=== PATIENT | male | born 1940 | race Hispanic/Latino ===

== ENCOUNTER 2016-10-05 18:42 | Inpatient (IN) | payer MEDICARE, BC ==
[2016-10-05] MEDS ORDERED: Morphine 4 mg/ml ISec IVP STA ×2 (19:01→21:02)
[2016-10-05] MEDS ORDERED: Iohexol 240 (50 ml) ONE (19:06)
--- NOTE | 2016-10-05 19:09 | ED PDOC ---
Arrival/HPI - General Chief Complaint: Abdominal Pain Time Seen by Provider: 10/05/16 18:47 Historian: Patient, Family - History of Present Illness Narrative History of Present Illness (Text): 10/05/16 19:13 Ever Parsons, a 76 year old male whose past medical history includes congestive heart failure and stroke (2 years ago), presents to the emergency department complaining of abdominal pain since yesterday. Patient's daughter reports patient had 3 episodes of non bloody non bilious vomiting today. Patient describes pain as gassy and cramping. Patient reports his last bowel movement was 2 hours ago. Patient denies any diarrhea, fever, urination problems or any other complaints at this time. PMD: Dr. Elliott Time/Duration: 24 hours Symptom Onset: Sudden Symptom Course: Unchanged Quality: Cramping, Gas Like Activities at Onset: Rest Context: Home Associated Symptoms (Text): nausea, vomiting Past Medical History - Provider Review Nursing Documentation Reviewed: Yes - Infectious Disease Hx of Infectious Diseases: None - Cardiac Hx Cardiac Disorders: Yes Hx Congestive Heart Failure: Yes Hx Hypertension: Yes - Pulmonary Hx Respiratory Disorders: No - Neurological HX Cerebrovascular Accident: Yes (1.5 yrs ago, L hemiparesis) - HEENT Hx HEENT Disorder: No - Renal Hx Renal Disorder: No - Endocrine/Metabolic Hx Diabetes Mellitus Type 2: Yes - Hematological/Oncological Hx Blood Transfusions: No Hx Blood Transfusion Reaction: No - Integumentary Other/Comment: RIGHT TEMPORAL LESION - Musculoskeletal/Rheumatological Hx Falls: Yes Other/Comment: HX RIGHT HIP FX - Gastrointestinal Hx Gastrointestinal Disorders: No Other/Comment: abd. hernia - Genitourinary/Gynecological Hx Genitourinary Disorders: No - Psychiatric Hx Anxiety: Yes Hx Depression: Yes Hx Substance Use: No - Surgical History Hx Coronary Stent: Yes Other/Comment: RIGHT HIP FX - Anesthesia Hx Anesthesia Reactions: No Hx Malignant Hyperthermia: No - Suicidal Assessment Feels Threatened In Home Enviroment: No Family/Social History - Physician Review Nursing Documentation Reviewed: Yes Family/Social History: No Known Family HX Smoking Status: Never Smoked Hx Alcohol Use: No Hx Substance Use: No Allergies/Home Meds Allergies/Adverse Reactions: Allergies Penicillins Allergy (Verified 07/30/16 16:46) URTICARIA Sulfa (Sulfonamide Antibiotics) Allergy (Verified 07/30/16 16:46) URTICARIA Home Medications: Home Meds Medication Instructions Recorded Confirmed Aspirin [Aspirin Chewable] 81 mg PO DAILY 10/05/16 10/05/16 Clopidogrel [Plavix] 75 mg PO DAILY 10/05/16 10/05/16 Methylphenidate [Methylphenidate 5 mg PO BID 10/05/16 10/05/16 HCl] Sennosides A and B [Senokot Tab] 17.2 mg PO PRN PRN 10/05/16 10/05/16 Review of Systems - Physician Review All systems were reviewed & negative as marked: Yes - Review of Systems Constitutional: absent: Fevers Gastrointestinal: Abdominal Pain, Nausea, Vomiting. absent: Diarrhea Genitourinary Male: absent: Dysuria, Frequency, Hematuria, Urinary Output Changes Physical Exam Vital Signs Reviewed: Yes Vital Signs Temp Pulse Resp BP Pulse Ox 10/05/16 22:10 98 F 94 H 16 118/74 95 10/05/16 18:50 98.3 F 93 H 24 142/90 98 Temperature: Afebrile Blood Pressure: Normal Pulse: Regular Respiratory Rate: Normal Appearance: Positive for: Well-Appearing, Non-Toxic, Comfortable Pain Distress: None Mental Status: Positive for: Alert and Oriented X 3 - Systems Exam Head: Present: Atraumatic, Normocephalic Pupils: Present: PERRL Extroacular Muscles: Present: EOMI Conjunctiva: Present: Normal Mouth: Present: Moist Mucous Membranes Neck: Present: Normal Range of Motion Respiratory/Chest: Present: Clear to Auscultation, Good Air Exchange. No: Respiratory Distress, Accessory Muscle Use Cardiovascular: Present: Regular Rate and Rhythm, Normal S1, S2. No: Murmurs Abdomen: Present: Tenderness (left sided tenderness with palpation), Normal Bowel Sounds, Guarding, Hernias (rediculable ventral hernia ). No: Distention, Peritoneal Signs, Rebound Upper Extremity: Present: Normal Inspection. No: Cyanosis, Edema Lower Extremity: Present: Normal Inspection. No: Edema Neurological: Present: GCS=15, CN II-XII Intact, Speech Normal Skin: Present: Warm, Dry, Normal Color. No: Rashes Psychiatric: Present: Alert, Oriented x 3, Normal Insight, Normal Concentration Medical Decision Making ED Course and Treatment: 10/05/16 19:10 Impression: 76 year old male with abdominal pain associated with nausea and vomiting. Differential Diagnosis included but are not limited to: pancreatitis vs diverticulitis vs. obstruction vs. gastritis Plan: -- EKG -- Abdomen/Pelvis CT -- Labs -- Morphine, Pepcid and Zofran -- Reassess and disposition Prior Visits: Notes and results from previous visits were reviewed. The patient last presented to the emergency department on 07/30/16 for evaluation of left knee pain. - RAD Interpretation Radiology Orders: 10/05/16 19:01 ABD PELVIS PO & IV CONTRAST [CT] Stat [facility] Preliminary Radiology Report Call: [phone] assistance Online chat: [email or web address] Patient Name: EVER PARSONS Institution Name: [place] [address] ABDOMEN/PELVIS W Ordered As: CT ABD PELVIS PO IV CONTRAST EXAM: CT Abdomen and Pelvis With Intravenous Contrast IMPRESSION: 1. Large bilateral pleural effusions. Atelectasis in the bases. 2. Cholelithiasis. 3. There are several abdominal wall hernias identified including 2 superiorly and a lower left ventral hernia which is the largest. Large volume of free fluid in the abdomen and pelvis extends into the lower most hernia with less fluid in the upper hernias. Small bowel and stomach are dilated. The small bowel dilatation does extend into the lower left hernia which appears to be wide mouthed measuring 7 cm in transverse diameter. Suspect that the findings are due to small bowel obstruction likely due to a adhesion either at the ostomy site or within the hernia. The small bowel which traverses from the hernia sac back into the abdominal wall appears to be of normal caliber images 128 through 152. There are dilated loops of small bowel more superior ventral hernias without incarceration. Given the complexity of multiple hernias and the obstruction, delayed imaging with already administered oral contrast may be helpful as clinically needed. Alternatively serial abdominal radiographs could be performed. - Medication Orders Current Medication Orders: Metronidazole (Flagyl) 100 mls @ 100 mls/hr IVPB STAT STA PRN Reason: Protocol Stop: 10/05/16 23:23 Discontinued Medications Famotidine (Pepcid) 20 mg IVP STAT STA Stop: 10/05/16 19:02 Last Admin: 10/05/16 19:16 Dose: 20 MG IVP Administration Document 10/05/16 19:16 [facility] (Rec: 10/05/16 19:[id number]) Charges for Administration # of IVP Administrations 1 Iohexol (Omnipaque 240 (50 Ml)) Confirm Administered Dose 50 ml .ROUTE .STK-MED ONE Stop: 10/05/16 19:07 Last Admin: 10/05/16 19:26 Dose: 50 ML Comments: per ordnance engineering technician Iohexol (Omnipaque 350 100 Ml) Confirm Administered Dose 350 mg .ROUTE .STK-MED ONE Stop: 10/05/16 21:06 Morphine Sulfate (Morphine) 4 mg IVP STAT STA Stop: 10/05/16 19:02 Last Admin: 10/05/16 19:16 Dose: 4 MG MAR Pain Assessment Document 10/05/16 19:16 [facility] (Rec: 10/05/16 19:[id number]) Pain Reassessment Is this a pain reassessment? No Sleep Is patient sleeping during reassessment? No Presence of Pain Presence of Pain Yes Pain Scale Used Pain Scale Used Numeric Location Pain Location Body Site Abdomen Description Description Constant Intensity of Pain at present 8 Acceptable Level of Pain 0 Radiation Location abdomen IVP Administration Document 10/05/16 19:16 [facility] (Rec: 10/05/16 19:16 [place] [id number]) Charges for Administration # of IVP Administrations 1 Morphine Sulfate (Morphine) 4 mg IVP STAT STA Stop: 10/05/16 21:03 Last Admin: 10/05/16 21:08 Dose: 4 MG MAR Pain Assessment Document 10/05/16 21:08 [facility] (Rec: 10/05/16 21:[id number]) Pain Reassessment Is this a pain reassessment? Yes Sleep Is patient sleeping during reassessment? No Presence of Pain Presence of Pain Yes Pain Scale Used Pain Scale Used Numeric Location Pain Location Body Site Abdomen Description Description Constant Intensity of Pain at present 7 Acceptable Level of Pain 0 IVP Administration Document 10/05/16 21:08 [facility] (Rec: 10/05/16 21:09 [place] [id number]) Charges for Administration # of IVP Administrations 1 Ondansetron HCl (Zofran Inj) Confirm Administered Dose 4 mg .ROUTE .STK-MED ONE Stop: 10/05/16 19:15 Last Admin: 10/05/16 19:20 Dose: 4 MG Ondansetron HCl (Zofran Inj) 4 mg IVP STAT STA Stop: 10/05/16 19:20 Last Admin: 10/05/16 19:21 Dose: ED OBSERVATION Date of observation admission: 10/05/16 Time of observation admission: 18:55 - Observation admission statement Patient is being placed in observation because:: abdominal pain with nausea and vomiting - Goals of Observation Goals of observation are:: pain control and obtain series of abdominal examination - Progress Note Progress Note: 10/05/16 22:38 Patient's pain is controlled. No vomiting during ED stay. Discussed case with Dr. Chery who had done his previous surgery as per patient. He agrees to admission and to discuss case with Supervising Film Or Videotape Editor. Discussed case with Dr. Lizzy Romano, surgical aide who will evaluate patient. Patient allergic to pencillion. Treated with Flagyl IV and Cipro IV. - Scribe Statement The provider has reviewed the documentation as recorded by the Albina Lovett training under Tom Driscoll All medical record entries made by the Albina were at my direction and personally dictated by me. I have reviewed the chart and agree that the record accurately reflects my personal performance of the history, physical exam, medical decision making, and the department course for this patient. I have also personally directed, reviewed, and agree with the discharge instructions and disposition. Disposition/Present on Arrival - Present on Arrival Any Indicators Present on Arrival: No History of DVT/PE: No History of Uncontrolled Diabetes: No Urinary Catheter: No History of Decub. Ulcer: No History Surgical Site Infection Following: None - Disposition Have Diagnosis and Disposition been Completed?: Yes Diagnosis: Small bowel obstruction Disposition: HOSPITALIZED Disposition Time: 22:43 Patient Plan: Admission Patient Problems: Current Active Problems Problem Status Diagnosed Left knee pain Acute PVD (peripheral vascular disease) Acute Condition: GUARDED
[2016-10-05 19:14] LABS: ADD MANUAL DIFF? NO
[2016-10-05 19:26] LABS: BASO # 0.03 K/mm3 (0.0-2.0); BASO % 0.2 % (0.0-3.0); EOS # 0.1 (0.0-0.7); EOS % 0.9 % (1.5-5.0); GRAN # 11.27 (1.4-6.5); HEMATOCRIT 36.6 % (42.0-52.0); LYMPH % 7.4 % (22.0-35.0); MEAN CELL VOLUME 78.7 fL (80.0-105.0); MEAN CORPUSCULAR HEMOGLOBIN 25.6 pg (25.0-35.0); MEAN CORPUSCULAR HGB CONC 32.5 g/dl (31.0-37.0); MEAN PLATELET VOLUME 8.6 fl (7.0-11.0); MONO # 0.9 (0.1-0.6); MONO % 6.5 % (1.0-6.0); PLATELET COUNT 371 10^3/uL (120.0-450.0); RED CELL DISTRIBUTION WIDTH 18.3 % (11.5-14.5); WHITE BLOOD COUNT 13.3 10^3/ul (4.5-11.0)
[2016-10-05 19:30] LABS: ALB/GLOB RATIO 0.9 (1.1-1.8); ALKALINE PHOSPHATASE 148 U/L (38-133); ALT/SGPT 31 U/L (7-56); AST/SGOT 46 U/L (15-59); BILIRUBIN,TOTAL 1.7 mg/dL (0.2-1.3); BLOOD UREA NITROGEN 32 mg/dL (7-21); CALCIUM 9.2 mg/dL (8.4-10.5); CARBON DIOXIDE 21 mmol/L (21-33); CHLORIDE 102 mmol/L (98-107); GFR AFRICAN-AMERICAN > 60; GLUCOSE,RANDOM 110 mg/dL (70-110); LIPASE 66 U/L (23-300); SODIUM 135 mmol/L (132-148); TOTAL PROTEIN 7.5 g/dL (5.8-8.3)
[2016-10-05 19:34] LABS: INR 1.24 (0.93-1.08); PARTIAL THROMBOPLASTIN TIME 30.5 Seconds (23.7-30.8)
[2016-10-05] MEDS ORDERED: Iohexol 350 MG/100 ML VIAL ONE (21:05)
[2016-10-05 22:08] LABS: VENOUS BLOOD GAS BASE EXCESS -2.8 mmol/L (0.0-2.0); VENOUS BLOOD PH 7.38 (7.32-7.43)
[2016-10-05] MEDS ORDERED: metroNIDAZOLE IV 500 mg/100 ml 100 ML IVPB STA (22:24)
[2016-10-05] MEDS ORDERED: Ciprofloxacin 400mg/200ml D5W 200 ML IVPB STA (22:43)
--- NOTE | 2016-10-05 23:18 | CP.PCM.CON ---
<Lizzy Romano - Last Filed: 10/05/16 23:01> History of Present Illness - History of Present Illness History of Present Illness: Surgery Consult: Dr. Tillman Pt is a 76M with PMHx significant for HTN, DM, CAD s/p PTCA, CVA and duodenal ulcer perforation in 2007 s/p laparotomy who presented to [facility] with complaints of abdominal pain. Pt states pain started last night after dinner and describes it as diffuse "gas pain." Pain was also accompanied by few episodes of non- bilious, non-bloody vomiting. This morning pt had a loose BM and was hoping the pain would get better, however pain got worse. He tried drinking pepto bismol which made the pain worse so he finally came to the hospital. In the ER, pt had a CT abdomen/pelvis which shows several abdominal wall hernias with bowel loops, suspicious for small bowel obstruction. Surgery consulted to evaluate. Currently, pt is resting comfortably in bed and states he feels a lot better and abdominal pain has resolved. He denies any more episodes of nausea/ vomiting. Denies flatus or BM since being in the hospital. Denies F/C, chest pain or SOB. PMHx: as stated above PSHx: laparotomy for duodenal perforation, PTCA SocialHx: denies smoking, EtOH/drugs NKDA Review of Systems - Review of Systems All systems: reviewed and no additional remarkable complaints except (as per HPI ) Past Patient History - Infectious Disease Hx of Infectious Diseases: None - Past Social History Smoking Status: Never Smoked - CARDIAC Hx Cardiac Disorders: Yes Hx Congestive Heart Failure: Yes Hx Hypertension: Yes - PULMONARY Hx Respiratory Disorders: No - NEUROLOGICAL HX Cerebrovascular Accident: Yes (1.5 yrs ago, L hemiparesis) - HEENT Hx HEENT Problems: No - RENAL Hx Chronic Kidney Disease: No - ENDOCRINE/METABOLIC Hx Diabetes Mellitus Type 2: Yes - MUSCULOSKELETAL/RHEUMATOLOGICAL Hx Falls: Yes Other/Comment: HX RIGHT HIP FX - GASTROINTESTINAL Hx Gastrointestinal Disorders: No Other/Comment: abd. hernia - GENITOURINARY/GYNECOLOGICAL Hx Genitourinary Disorders: No - PSYCHIATRIC Hx Anxiety: Yes Hx Depression: Yes Hx Substance Use: No - SURGICAL HISTORY Hx Coronary Stent: Yes Other/Comment: RIGHT HIP FX - ANESTHESIA Hx Anesthesia: Yes Hx Anesthesia Reactions: No Hx Malignant Hyperthermia: No Meds Allergies/Adverse Reactions: Allergies Allergy/AdvReac Type Severity Reaction Status Date / Time Penicillins Allergy URTICARIA Verified 07/30/16 16:46 Sulfa (Sulfonamide Allergy URTICARIA Verified 07/30/16 16:46 Antibiotics) - Medications Medications: Current Medications Metronidazole (Flagyl) 100 mls @ 100 mls/hr IVPB STAT STA PRN Reason: Protocol Stop: 10/05/16 23:23 Ciprofloxacin (Cipro 400mg/200ml Dsw) 200 mls @ 133.3 mls/hr IVPB STAT STA PRN Reason: Protocol Stop: 10/06/16 00:13 Physical Exam - Constitutional Appears: Well, No Acute Distress - Head Exam Head Exam: ATRAUMATIC, NORMOCEPHALIC - Eye Exam Eye Exam: Normal appearance - ENT Exam ENT Exam: Mucous Membranes Moist - Respiratory Exam Respiratory Exam: NORMAL BREATHING PATTERN - Cardiovascular Exam Cardiovascular Exam: RRR - GI/Abdominal Exam GI & Abdominal Exam: Soft. absent: Distended, Guarding, Rebound, Tenderness Additional comments: multiple ventral hernia, reducible - Extremities Exam Extremities exam: Negative for: tenderness - Neurological Exam Neurological exam: Alert, Oriented x3 - Skin Skin Exam: Dry, Intact, Warm Results - Vital Signs Recent Vital Signs: Last Vital Signs Temp 98 F 10/05/16 22:10 Pulse 94 H 10/05/16 22:10 Resp 16 10/05/16 22:10 BP 118/74 10/05/16 22:10 Pulse Ox 95 10/05/16 22:10 - Labs Result Diagrams: 10/05/16 19:09 10/05/16 19:09 - Imaging and Cardiology CT scan - abdomen Status: Image reviewed by me, Report reviewed by me Assessment & Plan - Assessment and Plan (Free Text) Assessment: 76M with abdominal pain, r/o SBO Plan: - Keep NPO - serial abdominal exams - if pt starts throwing up or abdominal pain returns, will insert NGT - monitor bowel function - d/w Dr. Vik Romano, PGY-2 Surgery <Salvatore Chery - Last Filed: 10/07/16 08:06> Meds - Medications Medications: Current Medications Acetylcysteine (Acetylcysteine 20%) 4 ml IH BIDRESP GILLIAN Last Admin: 10/06/16 21:53 Dose: 4 ml Arformoterol Tartrate (Brovana) 15 mcg IH [id number] [facility] Last Admin: 10/06/16 21:53 Dose: 15 mcg Aspirin (Aspirin Chewable) 81 mg PO DAILY [facility] Budesonide (Pulmicort Respules) 0.5 mg IH [id number] [facility] Last Admin: 10/06/16 21:53 Dose: 0.5 mg Escitalopram Oxalate (Lexapro) 10 mg PO DAILY [facility] Furosemide (Lasix) 40 mg PO DAILY [facility] Potassium Chloride 40 meq/ (Dextrose/Sodium Chloride) 1,020 mls @ 50 mls/hr IV .[id number] [facility] Lisinopril (Zestril) 5 mg PO DAILY [facility] Methylphenidate HCl (Ritalin) 5 mg PO BID [facility] Last Admin: 10/06/16 22:49 Dose: 5 mg Metoprolol Tartrate (Lopressor) 50 mg PO DAILY [facility] Morphine Sulfate (Morphine) 2 mg IVP Q4H PRN PRN Reason: Pain, moderate (4-7) Last Admin: 10/06/16 11:58 Dose: 2 mg Ondansetron HCl (Zofran Inj) 4 mg IVP Q4H PRN PRN Reason: Nausea/Vomiting Last Admin: 10/06/16 12:00 Dose: 4 mg Results - Vital Signs Recent Vital Signs: Last Vital Signs Temp 97.9 F 10/07/16 07:29 Pulse 75 10/07/16 07:29 Resp 20 10/07/16 07:29 BP 122/73 10/07/16 07:29 Pulse Ox 96 10/07/16 07:29 - Labs Result Diagrams: 10/07/16 05:30 10/07/16 05:30 Labs: Laboratory Results - last 24 hr 10/07/16 05:30 WBC 10.0 RBC 3.83 Hgb 9.7 L Hct 30.8 L MCV 80.4 MCH 25.3 MCHC 31.5 RDW 18.5 H Plt Count 347 MPV 8.2 Sodium 135 Potassium 4.5 Chloride 106 Carbon Dioxide 22 Anion Gap 12 BUN 24 H Creatinine 1.2 Est GFR ( Amer) > 60 Est GFR (Non-Af Amer) 59 Random Glucose 104 Calcium 8.5 Total Bilirubin 1.3 AST 38 ALT 34 Alkaline Phosphatase 98 Total Protein 6.2 Albumin 2.9 L Globulin 3.3 Albumin/Globulin Ratio 0.9 L Assessment & Plan - Assessment and Plan (Free Text) Assessment: Patient was seen and examined by me. I agree with assessment and plan as per resident's note. - Date & Time Date: 10/06/16 Time: 10:10
[2016-10-05] MEDS ORDERED: Dextrose 5%/0.45% NS 1,000 ML IV SCH (23:30)
[2016-10-06 02:08] LABS: VENOUS BLOOD GAS BASE EXCESS -2.8 mmol/L (0.0-2.0); VENOUS BLOOD PH 7.38 (7.32-7.43)
[2016-10-06 06:54] LABS: MEAN CORPUSCULAR HEMOGLOBIN 25.5 pg (25.0-35.0); MEAN CORPUSCULAR HGB CONC 31.9 g/dl (31.0-37.0); MEAN PLATELET VOLUME 8.4 fl (7.0-11.0); RED CELL DISTRIBUTION WIDTH 18.3 % (11.5-14.5); WHITE BLOOD COUNT 10.1 10^3/ul (4.5-11.0)
[2016-10-06 07:12] LABS: ALB/GLOB RATIO 0.8 (1.1-1.8); ALKALINE PHOSPHATASE 109 U/L (38-133); ALT/SGPT 31 U/L (7-56); AST/SGOT 43 U/L (15-59); BILIRUBIN,TOTAL 1.2 mg/dL (0.2-1.3); BLOOD UREA NITROGEN 29 mg/dL (7-21); CALCIUM 8.4 mg/dL (8.4-10.5); CARBON DIOXIDE 22 mmol/L (21-33); CHLORIDE 103 mmol/L (98-107); GFR AFRICAN-AMERICAN > 60; GLUCOSE,RANDOM 92 mg/dL (70-110); POTASSIUM 3.8 mmol/L (3.6-5.0); SODIUM 132 mmol/L (132-148); TOTAL PROTEIN 5.9 g/dL (5.8-8.3)
[2016-10-06] MEDS: Potassium Chloride 40 MEQ in Dextrose 5%/0.45% NS 1,000 ML IV SCH ×2 (07:54→17:57)
--- NOTE | 2016-10-06 09:09 | HP ---
CHIEF COMPLAINT AND HISTORY OF PRESENT ILLNESS: This is a 76-year-old male who is coming in to the [facility] because of abdominal pain. Yesterday morning, I received a call from the patient's jose woody that the patient was having abdominal discomfort and having a lot of gas. She said that she was n ot sure what to do. I advised her to take him Pepto-Bismol and Gas-X, and if he did not have improve ment of his symptoms, to come in to the Emergency Room for further evaluation. I received a second c all saying that he was continuing to have abdominal pain. I advised her to come to the Emergency [facility] to get evaluated. The patient does have a history of stroke, CHF, coronary artery disease. He was discharged from the hospital about 2 months ago, and had spent some time at subacute rehab at [facility]. He has a history of pulmonary hypertension, diabetes type 2, depression, COPD. He says he was having this abdominal pain - it was 4-5/10. Nothing was making the pain better. It was progressivel y getting worse, so he came in for further management. A CAT scan done showed that he had an obstruction. He denies any chest pain or shortness of breath, no nausea, no vomiting, no dysuria or frequency, no nocturia, no weakness in the arms or the legs. The pain was intermittent. There is also vomiting. It was nonbloody. He was having loose bowel movements. He does have a history of an abdominal herni a. REVIEW OF SYSTEMS: All other review of symptoms is within normal limits except as mentioned. ALLERGIES: PENICILLIN AND SULFA. HOME MEDICATIONS: Aspirin, Plavix, Ritalin, Senokot. PAST MEDICAL HISTORY: 1. Gastritis. 2. Left knee effusion. 3. COPD. 4. Diabetes type 2. 5. Bilateral pleural effusion. 6. Coronary artery disease. 7. Dyslipidemia. 8. Pulmonary hypertension. 9. Osteoarthritis. 10. Gait dysfunction. 11. CVA. PAST SURGICAL HISTORY: Laparotomy for duodenal perforation, PTCA, right hip surgery. SOCIAL HISTORY: He denies smoking or drinking alcohol. He lives with his . He is retired. FAMILY HISTORY: Noncontributory. PHYSICAL EXAMINATION: VITAL SIGNS: Temperature is 98.7, pulse of 81. Blood pressure is 91/59, respirations 20. GENERAL: The patient is lying in bed, flat, and in no apparent distress. HEAD AND NECK EXAM: Atraumatic, normocephalic. Conjunctivae are pink. Throat clear and mouth with moist mucosa. Oropharynx benign. EYES: Extraocular movements are intact. PERRLA. NECK: Supple. No JVD, thyromegaly, or adenopathy. No bruits. HEART: S1 and S2 regular rate and rhythm. No murmurs, rubs, or gallops. LUNGS: Clear to auscultation bilaterally. No wheezing rales or rhonchi appreciated. No retraction s on exam. ABDOMEN: Bowel sounds are positive, soft. There is tenderness on deep palpation. No rebound, no gu arding. No hepatosplenomegaly. EXTREMITIES: No cyanosis, clubbing, or edema. NEURO: No facial asymmetry, tongue is midline, no uvula deviation. Power is 5/5 in upper extremity and 5/5 in lower extremity. Sensation is normal in upper extremity and lower extremity. PSYCH: Awake, alert, oriented x3. No anxiety or depression symptoms. Good insight. Normal affec t. : No CVA tenderness VASCULAR: 2+ pulses in carotid and pedal pulses. SKIN: No erythema or abnormal nodules noted. SPINE: Normal curvature. LYMPHADENOPATHY: No anterior cervical or posterior cervical adenopathy. No inguinal adenopathy. LABORATORY DATA: White count 13.3, hemoglobin 11.9. Platelet count is 371. Granulocytes 85%. INR is 1.2. ABG done shows a pH of 7.38 with a pCO2 of 37, PaO2 of 102. Lactate is 2. Chemistry shows a sodium of 135. Potassium is 4.0. BUN is 32. He has a total bili of 1.7. Alk phos is 148. Lipas e is 66. CT of the abdomen done shows a large bilateral pleural effusion with cholelithiasis, and there is a h ernia that is identified, left ventral hernia. There is a large volume of free fluid in the abdomen. The small bowel and stomach are dilated. ASSESSMENT: 1. Small-bowel obstruction. 2. Ventral hernia. 3. Bilateral pleural effusion, large. 4. Ascites. 5. Cholelithiasis. 6. Coronary artery disease. 7. Diabetes type 2. 8. Pulmonary hypertension. 9. Dyslipidemia. 10. Osteoarthritis. 11. Depression. 12. History of rectal bleeding. 13. Chronic obstructive pulmonary disease. PLAN: The patient is coming in to the hospital with abdominal pain. He has CT scan that shows a sig nificant amount of obstruction with bilateral pleural effusion. He is going to need surgical evaluat ion. I have asked Dr. Chery to evaluate the patient. He also has cardiac issues and pulmonary issues. I will get pulmonary and cardiology to see the patient. He may need surgery. He is at hig h risk given his underlying comorbidities. He is going to be placed on morphine for pain. He is on Zofran for nausea. He is n.p.o. He is receiving D5 half normal saline. I will add potassium to the saline. Overall prognosis is guarded. We will repeat the patient's blood work. Amol David MD cc: [id number] TT: 10/06/2016 09:08:44 jn
--- NOTE | 2016-10-06 09:46 | CT ---
PROCEDURE: CT Abdomen and Pelvis with contrast HISTORY: abd pain r/o obstruction; r/o diverticulitis COMPARISON: None. TECHNIQUE: Contrast dose: 100 cc of Omni 350 Radiation dose: Total exam DLP = 1144 mGy-cm. This CT exam was performed using one or more of the following dose reduction techniques: Automated exposure control, adjustment of the mA and/or kV according to patient size, and/or use of iterative reconstruction technique. FINDINGS: LOWER THORAX: Small bilateral pleural effusions left greater than right LIVER: Unremarkable. No gross lesion or ductal dilatation. GALLBLADDER AND BILE DUCTS: Small gallstones PANCREAS: Unremarkable. No gross lesion or ductal dilatation. SPLEEN: Unremarkable. ADRENALS: Unremarkable. No mass. KIDNEYS AND URETERS: There is severe atrophy of the left kidney. The right kidney is unremarkable VASCULATURE: Unremarkable. No aortic aneurysm. BOWEL: Multiple ventral hernias are seen with the largest in the left lower quadrant. The left lower quadrant hernia has a wide mouth measuring 7 cm as seen on coronal image 46. Multiple dilated bowel loops are seen consistent with partial obstruction. APPENDIX: Normal appendix. PERITONEUM: There is a moderate amount of ascites. Fluid also extends into left lower quadrant hernia. LYMPH NODES: Unremarkable. No enlarged lymph nodes. BLADDER: Unremarkable. REPRODUCTIVE: Unremarkable. BONES: No acute fracture. OTHER FINDINGS: The report concurs with the preliminary [facility] report IMPRESSION: Multiple ventral hernias with partial small bowel obstruction
[2016-10-06] MEDS: Morphine 2 mg/ml ISec IVP PRN (11:58)
--- NOTE | 2016-10-06 13:24 | CON ---
DATE: 10/06/2016 REFERRING PHYSICIAN: Amol David MD REASON FOR CONSULT: Pleural effusion, scheduled for possible surgery, admitted with small-bowel obst ruction. HISTORY OF PRESENT ILLNESS: This is a 76-year-old gentleman who came into ER with abdominal pain, qu estionable small-bowel obstruction with a ventral hernia, history of pleural effusion, chronic lung d isease, congestive heart failure, diabetes since last night. He feels a little better, but still has abdominal pain, has a mild cough with clear sputum. No chest pain, no dysuria, no leg pain or leg s welling. PAST MEDICAL HISTORY: Cardiomyopathy, pulmonary hypertension, diabetes, pleural effusion, anxiety di sorder, coronary artery disease with coronary stent. ALLERGIES: PENICILLIN; SULFA, DEVELOPED URTICARIA. FAMILY HISTORY: No significant cardiopulmonary disease reported. MEDICATIONS: He is on morphine 2 mg IV q. 4 hours p.r.n., potassium 40 mEq with IV fluids, Zofran p. r.n. basis. He received Flagyl 500 mg 1 dose in the ER, also received Cipro 400 mg 1 dose. His home medications are metoprolol tartrate 50 mg daily, lisinopril 5 mg daily, Lasix 40 mg daily, Lexapro 1 0 mg daily, Plavix 75 mg daily, aspirin 81 mg daily. REVIEW OF SYSTEMS: No headache, no rhinitis. Does have some cough. Gets short of breath with exert ion. No chest pain, no nausea, had abdominal pain which is improved since admission. No dysuria, no diarrhea, no leg pain or leg swelling. PHYSICAL EXAMINATION: GENERAL: Lying in the bed in no acute distress. VITAL SIGNS: Temp is 98, heart rate 76, respiratory rate is 20, blood pressure 108/55, pulse ox 97% on room air. HEENT: Moist mucous membrane. Crowded airway. NECK: Supple, no JVD. LUNGS: Have a decreased breath sounds at the bases with scattered rhonchi. HEART: S1 and S2. ABDOMEN: Has multiple, at least 3-4, ventral hernias; right lower quadrant has some tenderness. EXTREMITIES: There is not much edema. NEUROLOGIC: Awake, alert, follows simple commands. LABORATORY DATA: Shows hemoglobin 10.2, hematocrit 32.0, WBC 10.1, platelet count is 351. INR 1.24, PTT is 31. Blood gases done today shows VBG pH 7.38, pCO2 of 37, O2 of 96 on room air. Sodium 132, potassium 3.8, chloride 103, bicarbonate 22, BUN 29, creatinine 1.1, glucose is 92, calcium is 8.4, AST 43, ALT 31, alk phos is 109, albumin is 2.7. MICROBIOLOGY: Stool for C. diff which was in July was negative. CAT scan of the abdomen and pel vis done in the ER yesterday, which shows multiple ventral hernias with a partial small-bowel obstruc tion. There are also small bilateral pleural effusions, left greater than the right. There are also a moderate amount of ascites. IMPRESSION AND PLAN: Small-bowel obstruction with multiple ventral hernias, cardiomyopathy with syst olic dysfunction, coronary artery disease, history of coronary stent, bilateral small pleural effusio n, diabetes, hypertension, degenerative joint disease, gastritis. There may be component of sleep ap nathalie. Pulmonary point of view, his status is optimized. He has been on Plavix, which needs to be hel d. I will add inhaled bronchodilator. Gastric prophylaxis. SCD to lower extremity. Cardiology fol lowup. Surgical consult has been called. If undergoes surgical treatment, needs close cardiopulmona ry monitoring. I will follow with you. Onofre Lieberman MD cc: [id number] TT: 10/06/2016 13:24:22 Confirmation # [id number] Dictation # [id number]
--- NOTE | 2016-10-06 14:13 | CON ---
DATE: 10/06/2016 REQUESTING PHYSICIAN: Dr. David REASON FOR CONSULTATION: Known coronary artery disease and congestive heart failure with a small bow el obstruction. HISTORY OF PRESENT ILLNESS: This is a 76-year-old man, well known to us with a history of coronary a rtery disease, status post prior PCI, who presented to the Emergency Room complaining of severe abdom inal pain. His findings were consistent with a small bowel obstruction and surgical evaluation has b een initiated. He continues to have abdominal discomfort; however, it is not quite as severe as it w as yesterday. He denies any recent chest pain. He underwent cardiac catheterization and PCI of his LAD in 2014. This was complicated by a cerebrovascular accident. Prior echocardiogram showed eviden ce of severely reduced LV systolic function with anterior apical akinesis as well as inferior hypokin esis. He has a history of severe tricuspid regurgitation. He has undergone prior abdominal surgery for perforated ulcer over 10 years ago. He has incisional hernias as well. PAST MEDICAL HISTORY: Notable for the problems mentioned above. He has undergone a prior right tota l hip replacement. He has a history of diabetes, hypertension and hyperlipidemia. CURRENT MEDICATIONS: Include aspirin, Brovana, Lasix 40 mg daily, Lexapro, metoprolol 50 mg daily, P ulmicort inhaler, Ritalin and Zestril 5 mg daily. ALLERGIES: HE HAS HAD A REACTION TO PENICILLIN AND SULFAS IN THE PAST. SOCIAL HISTORY: He does not smoke or drink. He is , lives with his . FAMILY HISTORY: Both parents are from age-related illness. REVIEW OF SYSTEMS: A 10-point is notable mainly for the problems mentioned above. PHYSICAL EXAMINATION: GENERAL: He is an elderly man who appears comfortable at the present time. He does have mild abdomi nal pain. VITAL SIGNS: His blood pressure is 108/56 with a pulse of 76 and respirations are 16. He is current ly afebrile. HEENT: No JVD. Pupils equal, react to light and accommodation. NECK: Supple. CHEST: Bilateral scattered rhonchi. HEART: PMI displaced laterally with soft tones noted. A systolic murmur is present at the lower lef t sternal border. ABDOMEN: Reveals the abdomen to be distended, hyperactive bowel sounds are noted. Mild to moderate diffuse tenderness is present. EXTREMITIES: No clubbing, cyanosis or edema. SKIN: Warm and dry. PSYCHIATRIC: Normal mood and affect. NEUROLOGIC: Alert and oriented x 3. He does have mild left-sided hemiparesis. DIAGNOSTIC DATA: CT of the abdomen reveals multiple ventral hernias with a partial small bowel obstr uction, bilateral pleural effusions are noted. Chest x-ray will be reviewed. Electrocardiogram reve als sinus rhythm with first degree AV block, LVH with repolarization abnormalities, prior inferior wa ll myocardial infarction pattern and lateral wall infarct pattern. The white count is at 10.1, hemog lobin and hematocrit are 10.2 and 32.0 with a platelet count of 351,000. PT/INR 13.4 and 1.2 with a PTT of 30.5. Potassium 3.8, BUN and creatinine 29 and 1.1. Bilirubin 1.2. IMPRESSION: 1. Apparent small bowel obstruction, surgical evaluation in progress. 2. Known coronary artery disease, status post remote percutaneous coronary intervention of left ante rior descending with residual severe left ventricular dysfunction. 3. Mitral and tricuspid regurgitation. 4. History of diabetes and hyperlipidemia. RECOMMENDATIONS: His current oral medications should continue if tolerated. Beta beulah therapy sh ould continue. Plavix is currently on hold. Aspirin can be placed on hold as well if needed. If pantoja rgical intervention is needed, he is at least a moderately increased risk given his left ventricular dysfunction and known coronary artery disease. A repeat echocardiogram will be ordered to reassess h is left ventricular function at the present time. Thank you for this consultation. I will be happy to follow along through his hospital course. Mike Herrera MD cc: [id number] TT: 10/06/2016 14:12:58 Confirmation # [id number] Dictation # [id number] en
--- NOTE | 2016-10-06 15:13 | CP.PCM.PN ---
<ChevyDelmar - Last Filed: 10/06/16 15:10> Subjective - Date & Time of Evaluation Date of Evaluation: 10/06/16 Time of Evaluation: 07:50 - Subjective Subjective: Surgery Progress note. Dr. Chery Pt seen and examined at bedside. Patient states that the abdominal pain has improved. Denies any N/V/D. No F/C. No new complaints. Ventral hernia reducible. Objective - Vital Signs/Intake and Output Vital Signs (last 24 hours): Temp Pulse Resp BP Pulse Ox 98.1 F 76 20 108/55 L 97 10/06/16 07:24 10/06/16 07:24 10/06/16 07:24 10/06/16 07:24 10/06/16 07:24 Intake and Output: 10/06/16 10/06/16 06:59 18:59 Intake Total 0 Balance 0 - Medications Medications: Current Medications Acetylcysteine (Acetylcysteine 20%) 4 ml IH BIDRESP [facility] Arformoterol Tartrate (Brovana) 15 mcg IH [id number] [facility] Aspirin (Aspirin Chewable) 81 mg PO DAILY [facility] Budesonide (Pulmicort Respules) 0.5 mg IH [id number] [facility] Escitalopram Oxalate (Lexapro) 10 mg PO DAILY [facility] Furosemide (Lasix) 40 mg PO DAILY [facility] Potassium Chloride 40 meq/ (Dextrose/Sodium Chloride) 1,020 mls @ 100 mls/hr IV .[id number] [facility] Last Admin: 10/06/16 07:54 Dose: 100 mls/hr Lisinopril (Zestril) 5 mg PO DAILY [facility] Methylphenidate HCl (Ritalin) 5 mg PO BID [facility] Metoprolol Tartrate (Lopressor) 50 mg PO DAILY [facility] Morphine Sulfate (Morphine) 2 mg IVP Q4H PRN PRN Reason: Pain, moderate (4-7) Last Admin: 10/06/16 11:58 Dose: 2 mg Ondansetron HCl (Zofran Inj) 4 mg IVP Q4H PRN PRN Reason: Nausea/Vomiting Last Admin: 10/06/16 12:00 Dose: 4 mg - Labs Labs: 10/06/16 06:00 10/06/16 06:00 PT 13.4 Seconds (9.9-11.8) H 10/05/16 19:09 INR 1.24 (0.93-1.08) H 10/05/16 19:09 APTT 30.5 Seconds (23.7-30.8) 10/05/16 19:09 - Constitutional Appears: Well, No Acute Distress - Head Exam Head Exam: ATRAUMATIC, NORMAL INSPECTION, NORMOCEPHALIC - Eye Exam Eye Exam: EOMI, Normal appearance, PERRL Pupil Exam: PERRL - ENT Exam ENT Exam: Mucous Membranes Moist - Respiratory Exam Respiratory Exam: NORMAL BREATHING PATTERN. absent: Wheezes - Cardiovascular Exam Cardiovascular Exam: absent: JVD - GI/Abdominal Exam GI & Abdominal Exam: Soft Additional comments: Midline abdominal scar. Midline ventral hernia, 3 defects. All reducible. Mild tenderness to palpation. No signs of incarceration. - Extremities Exam Extremities Exam: Normal Inspection. absent: Calf Tenderness - Back Exam Back Exam: NORMAL INSPECTION - Neurological Exam Neurological Exam: Alert, Awake, Oriented x3 - Psychiatric Exam Psychiatric exam: Normal Affect, Normal Mood - Skin Skin Exam: Dry, Intact, Normal Color, Warm Assessment and Plan - Assessment and Plan (Free Text) Assessment: 76M with abdominal pain. Patient with reducible ventral hernias. Low suspicion for SBO. - Keep NPO except meds - serial abdominal exams - if pt starts throwing up or abdominal pain returns, will insert NGT - monitor bowel function - Patient may benefit from GI evaluation for free fluid in abdomen - No plans for acute surgical intervention at this time. Discussed case with Dr. Vik Reece PGY1 Surgery pager: [phone] <Salvatore Chery - Last Filed: 10/07/16 08:08> Subjective - Date & Time of Evaluation Date of Evaluation: 10/06/16 Time of Evaluation: 16:10 Objective - Vital Signs/Intake and Output Vital Signs (last 24 hours): Temp Pulse Resp BP Pulse Ox 97.9 F 75 20 122/73 96 10/07/16 07:29 10/07/16 07:29 10/07/16 07:29 10/07/16 07:29 10/07/16 07:29 Intake and Output: 10/07/16 10/07/16 06:59 18:59 Intake Total 0 Output Total 800 Balance -800 - Medications Medications: Current Medications Acetylcysteine (Acetylcysteine 20%) 4 ml IH BIDRESP [facility] Last Admin: 10/06/16 21:53 Dose: 4 ml Arformoterol Tartrate (Brovana) 15 mcg IH [id number] [facility] Last Admin: 10/06/16 21:53 Dose: 15 mcg Aspirin (Aspirin Chewable) 81 mg PO DAILY [facility] Budesonide (Pulmicort Respules) 0.5 mg IH [id number] [facility] Last Admin: 10/06/16 21:53 Dose: 0.5 mg Escitalopram Oxalate (Lexapro) 10 mg PO DAILY [facility] Furosemide (Lasix) 40 mg PO DAILY [facility] Potassium Chloride 40 meq/ (Dextrose/Sodium Chloride) 1,020 mls @ 50 mls/hr IV .[id number] [facility] Lisinopril (Zestril) 5 mg PO DAILY [facility] Methylphenidate HCl (Ritalin) 5 mg PO BID [facility] Last Admin: 10/06/16 22:49 Dose: 5 mg Metoprolol Tartrate (Lopressor) 50 mg PO DAILY [facility] Morphine Sulfate (Morphine) 2 mg IVP Q4H PRN PRN Reason: Pain, moderate (4-7) Last Admin: 10/06/16 11:58 Dose: 2 mg Ondansetron HCl (Zofran Inj) 4 mg IVP Q4H PRN PRN Reason: Nausea/Vomiting Last Admin: 10/06/16 12:00 Dose: 4 mg - Labs Labs: 10/07/16 05:30 10/07/16 05:30 PT 13.4 Seconds (9.9-11.8) H 10/05/16 19:09 INR 1.24 (0.93-1.08) H 10/05/16 19:09 APTT 30.5 Seconds (23.7-30.8) 10/05/16 19:09 Assessment and Plan - Assessment and Plan (Free Text) Assessment: Patient was seen and examined by me. I agree with assessment and plan as per resident's note.
--- NOTE | 2016-10-06 16:12 | CARD ---
APPROVED REPORT EKG Measurement Heart [id number] OR [id number] [id number] <Conclusion> Sinus rhythm with 1st degree AV block PRWP IVCD STTW changes c/w ischemia Q in 3
--- NOTE | 2016-10-06 16:19 | CON ---
DATE: 10/06/2016 Seen and examined at the bedside this afternoon. REQUEST FOR CONSULT: Free abdominal fluid. HISTORY OF PRESENT ILLNESS: This is a 76-year-old male with a past medical history of duodenal ulcer perforation with laparotomy, coronary artery disease with PTCA, history of CVA, hypertension, diabet es mellitus. Presented to the Emergency Room with complaints of abdominal pain. The patient states that the pain started after having dinner last night. It was more of diffuse gas pains with episode of nonbloody emesis. The patient had a loose bowel movement with no relief. In fact, the pain got w orse. He tried drinking Pepto-Bismol with no relief. In the Emergency Room, a CAT scan was done whi ch reported several abdominal wall hernias with bowel loops suspicious for small-bowel obstruction an d also a moderate amount of ascites fluid extending to the left lower quadrant hernia. The patient d oes complain currently of diffuse abdominal pain in the mid abdomen. He states it is slightly better , not much nausea now. Denies any fever, chills, shortness of breath or chest pain. No current reggie l movements today. Denies any melena or bright red blood per rectum, although reports dark stool but patient is on iron. His last colonoscopy was many years ago. He does not recall any colon polyps. He was seen by our service back in July for anemia. He had an endoscopy which revealed gastriti s and a normal duodenum. Denies any symptoms of ____ or any symptoms of reflux. PAST MEDICAL HISTORY: As stated above. Gastritis, iron deficiency anemia, hypertension, coronary ar dewey disease status post PTCA, CVA, perforated duodenal ulcer, diabetes mellitus. SURGICAL HISTORY: He had a laparotomy for duodenal perforation. Endoscopy was 12/14/16. Colonoscopy was more than 5 years ago, does not recall any history of polyps. FAMILY HISTORY: Noncontributory at this time. MEDICATIONS: He is on Lopressor, methylphenidate, hydrochloride, Zestril, Lasix, Lexapro, Plavix, Li pitor, chewable aspirin and Senokot. ALLERGIES: PENICILLIN AND SULFA. SOCIAL HISTORY: Denies smoking, ETOH or substance abuse. REVIEW OF SYSTEMS: Systems reviewed with positive findings, see HPI. VITAL SIGNS: Temperature is 98.1, blood pressure is 108/55, pulse 76, respirations 20, 97 on room ai r. LABORATORY WORK: WBC is 10.1, H and H is 10.2 and 32.0, platelets of 351. ____ 13.4, INR is 1.24, P TT 30.5. Sodium is 132, K 3.8, BUN 29, creatinine is 1.1, total bilirubin is 1.2. AST 43, ALT 31, a lkaline phosphatase is 109, yesterday it was 148. Lipase 66 on admission. RADIOLOGY: CT scan of abdomen and pelvis without any IV or oral contrast reports multiple ventral he rnias with partial small-bowel obstruction and moderate amount of ascites. Fluid also extends into t he left lower quadrant hernia, unremarkable. No enlarged lymph nodes, severe atrophy of the left kid verna, small gallstones. PHYSICAL EXAMINATION: HEENT: Sclera is anicteric. NECK: Supple. CARDIAC: S1, S2. LUNGS: Sounds with decreased breath sounds but good air entry. No rales or wheeze. ABDOMEN: With bowel sounds, soft with multiple ventral hernias. Mild tenderness. No rebound, guard ing, or organomegaly. EXTREMITIES: No edema. Negative calf tenderness. NEUROLOGIC: Awake, alert, and oriented. ASSESSMENT: A 76-year-old male came with abdominal pain, nausea and vomiting. He has past medical h istory of duodenal ulcer perforation with laparotomy, history of coronary artery disease with percuta neous transluminal coronary angioplasty, on aspirin and Plavix; history of hypertension, history of d iabetes mellitus, history of cerebrovascular accident. PLAN: The patient is currently n.p.o. We will continue IV fluids for hydration. We will request an abdominal ultrasound for further evaluation. The patient is on aspirin. He is also getting morphin e for pain and Zofran p.r.n. nausea. The patient is also being followed by surgery, cardiology and p ulmonology. Thank you for this consult and for allowing us to participate in your patient's care. We will make ale pena recommendations after review of abdominal ultrasound and patient's clinical course. The patient was seen and case discussed with Dr. Scott. Jenny GIRARD cc: [id number] TT: 10/06/2016 16:18:17 Confirmation # [id number] Dictation # [id number] sn
[2016-10-06] MEDS: Budesonide 0.5 mg/2 ml Inhal Susp UD IH SCH (21:53)
[2016-10-06] MEDS: Arformoterol 15 mcg/2 ml Inh Sol IH SCH (21:53)
[2016-10-06] MEDS: Acetylcysteine 20% Inhal Soln (4ml) IH SCH (21:53)
--- NOTE | 2016-10-06 23:43 | CON ---
DATE: 10/06/2016 ADDENDUM: SUBJECTIVE: The patient was seen and evaluated earlier. Discussed with the nursing staff. This is an addendum to the GI consultation report dictated by Jenny Giles NP. This 76-year-old patient admi tted for complaints of abdominal pain and episodes of vomiting and cramping discomfort. The patient was also complaining of constipation with bowel movements about 2 days ago. LABORATORY DATA: The patient had a CAT scan of the abdomen and the patient was suspected to have sig moid partial small-bowel obstruction, had a CT scan of the abdomen showed multiple ventral hernia wit h a partial obstruction. PHYSICAL EXAMINATION: She had a ventral hernia, multiple surgical scars present. No vomiting now. , no bowel movement. Feels his abdominal discomfort has improved. The CT scan also revealed a significant amount of ascites along with the pleural effusion. IMPRESSION: Partial small bowel obstruction probably secondary to large ventral hernia of partial sm all-bowel obstruction, large ascites, pleural effusion. Etiology is gallstones. Other comorbidities include diabetes mellitus, hypertension, dyslipidemia. The patient did have surgery many years ago for a duodenal ulcer perforation. Endoscopy done on 08/02/2016 which revealed only gastritis, normal duodenum. PLAN: Would recommend starting on a clear liquid diet if there are no further episodes of vomiting a fter reviewing the repeat abdominal x-ray. The etiology of ascites is unclear. We will follow up e ultrasound. Request for hepatitis profile as a baseline workup. We cannot rule out cirrhosis. Th e patient does have coronary artery disease, pulmonary hypertension, cardiomyopathy, diabetes mellitu s, anxiety. Will consider abdominal x-ray in a.m. After start of the clear liquid diet, the patient is clinically improving. Will continue to . I would request for hepatitis profile, abdominal x-ray for surgical followup. We will continue to closely follow up his care and suggest further edy fabián based on the clinical course. Kary Scott MD cc: [id number] TT: 10/06/2016 23:43:01 Confirmation # [id number] Dictation # [id number] mn
[2016-10-07 06:21] LABS: HEMATOCRIT 30.8 % (42.0-52.0); MEAN CELL VOLUME 80.4 fL (80.0-105.0); MEAN CORPUSCULAR HEMOGLOBIN 25.3 pg (25.0-35.0); MEAN CORPUSCULAR HGB CONC 31.5 g/dl (31.0-37.0); MEAN PLATELET VOLUME 8.2 fl (7.0-11.0); RED CELL DISTRIBUTION WIDTH 18.5 % (11.5-14.5)
[2016-10-07 06:34] LABS: ALB/GLOB RATIO 0.9 (1.1-1.8); ALKALINE PHOSPHATASE 98 U/L (38-133); ALT/SGPT 34 U/L (7-56); AST/SGOT 38 U/L (15-59); BILIRUBIN,TOTAL 1.3 mg/dL (0.2-1.3); BLOOD UREA NITROGEN 24 mg/dL (7-21); CALCIUM 8.5 mg/dL (8.4-10.5); CARBON DIOXIDE 22 mmol/L (21-33); CHLORIDE 106 mmol/L (98-107); GFR AFRICAN-AMERICAN > 60; GLUCOSE,RANDOM 104 mg/dL (70-110); POTASSIUM 4.5 mmol/L (3.6-5.0); SODIUM 135 mmol/L (132-148); TOTAL PROTEIN 6.2 g/dL (5.8-8.3)
[2016-10-07] MEDS ORDERED: Potassium Chloride 40 MEQ in Dextrose 5%/0.45% NS 1,000 ML IV SCH (06:41)
[2016-10-07] MEDS: Budesonide 0.5 mg/2 ml Inhal Susp UD IH SCH ×2 (08:15→22:06)
[2016-10-07] MEDS: Arformoterol 15 mcg/2 ml Inh Sol IH SCH ×2 (08:15→22:06)
[2016-10-07] MEDS: Acetylcysteine 20% Inhal Soln (4ml) IH SCH ×2 (08:15→22:05)
--- NOTE | 2016-10-07 08:17 | PN ---
DATE: 10/07/2016 SUBJECTIVE: The patient has no complaints of any chest pain. He says his abdominal pain is better. There is no headaches, no dizziness. PHYSICAL EXAMINATION: VITAL SIGNS: Temperature is 98.3, pulse is 78, blood pressure is 110/70, respirations 20. GENERAL: The patient comfortable, in no acute distress. HEENT: Anicteric sclerae. Moist mucosa. NECK: No JVD or adenopathy. CARDIAC: S1/S2. No murmurs. No rubs. Regular. RESPIRATORY: Clear to auscultation bilaterally. No wheezes, rales, or rhonchi. Good air entry. ABDOMEN: Bowel sounds are positive, soft, nontender, and nondistended. EXTREMITIES: No edema. Has 1+ pulses. LABORATORIES: White count of 10, hemoglobin 9.7. Creatinine is 1.2. Echo is pending. Abdominal ultrasound is pending. ASSESSMENT: 1. Small bowel obstruction. 2. Ascites. 3. Bilateral pleural effusions. 4. Ventral hernia. 5. Cholelithiasis. 6. Coronary artery disease. 7. Diabetes type 2. 8. Pulmonary hypertension. 9. Dyslipidemia. 10. Osteoarthritis. 11. Depression. 12. Chronic obstructive pulmonary disease. 13. History of rectal bleeding. PLAN: The patient is being followed by GI. I appreciate their input. Also surgery. The ezio ent is on Brovana, is on IV fluids with potassium. He is currently n.p.o. The patient is on lisinop ril for hypertension, is on morphine for pain, is going to continue with metoprolol. We will repeat the patient's blood work tomorrow. Amol David MD cc: [id number] TT: 10/07/2016 08:17:29 Confirmation # [id number] Dictation # [id number] en
--- NOTE | 2016-10-07 08:27 | CP.PCM.PN ---
Subjective - Date & Time of Evaluation Date of Evaluation: 10/07/16 Time of Evaluation: 08:00 - Subjective Subjective: Stable on 5R. He feels better w/o abd pain today. remains NPO. No CP or SOB. V/S noted. PE: Lungs: clear Cor.: S1S2 Abd.: soft, mild tenderness. + BS Ext.: no edema Neuro.: alert Labs noted. ECG 10/05: SR with 1st degree AVB, PRWP, IVCD, STTW changes Echo:done. Will check Objective - Vital Signs/Intake and Output Vital Signs (last 24 hours): Temp Pulse Resp BP Pulse Ox 97.9 F 75 20 122/73 96 10/07/16 07:29 10/07/16 07:29 10/07/16 07:29 10/07/16 07:29 10/07/16 07:29 Intake and Output: 10/07/16 10/07/16 06:59 18:59 Intake Total 0 Output Total 800 Balance -800 - Medications Medications: Current Medications Acetylcysteine (Acetylcysteine 20%) 4 ml IH BIDRESP [facility] Last Admin: 10/07/16 08:15 Dose: 4 ml Arformoterol Tartrate (Brovana) 15 mcg IH [id number] [facility] Last Admin: 10/07/16 08:15 Dose: 15 mcg Aspirin (Aspirin Chewable) 81 mg PO DAILY [facility] Budesonide (Pulmicort Respules) 0.5 mg IH [id number] [facility] Last Admin: 10/07/16 08:15 Dose: 0.5 mg Escitalopram Oxalate (Lexapro) 10 mg PO DAILY [facility] Furosemide (Lasix) 40 mg PO DAILY [facility] Potassium Chloride 40 meq/ (Dextrose/Sodium Chloride) 1,020 mls @ 50 mls/hr IV .[id number] [facility] Lisinopril (Zestril) 5 mg PO DAILY [facility] Methylphenidate HCl (Ritalin) 5 mg PO BID [facility] Last Admin: 10/06/16 22:49 Dose: 5 mg Metoprolol Tartrate (Lopressor) 50 mg PO DAILY [facility] Morphine Sulfate (Morphine) 2 mg IVP Q4H PRN PRN Reason: Pain, moderate (4-7) Last Admin: 10/06/16 11:58 Dose: 2 mg Ondansetron HCl (Zofran Inj) 4 mg IVP Q4H PRN PRN Reason: Nausea/Vomiting Last Admin: 10/06/16 12:00 Dose: 4 mg - Labs Labs: 10/07/16 05:30 10/07/16 05:30 PT 13.4 Seconds (9.9-11.8) H 10/05/16 19:09 INR 1.24 (0.93-1.08) H 10/05/16 19:09 APTT 30.5 Seconds (23.7-30.8) 10/05/16 19:09 Assessment and Plan - Assessment and Plan (Free Text) Plan: Assessment: Abd. Pain SBO Multiple GI issues: ventral hernias, ascites, H/O PUD CAD/CI/NC/Severe LVD Diabetes HBP HLD CVA Rt. THR COPD Valvular Heart Disease: Severe TR, Mild MR, Severe PH on last echo Plan: As per GI and Surgery. Will check echo. If surgery needed: High Cardiac Risk Continue PO cardiac meds if tolerated. Hold ASA and Plavix pending decision re surgery. Monitor: labs, I/O, sats., etc.
--- NOTE | 2016-10-07 09:24 | US ---
HISTORY: Abdominal pain, small-bowel obstruction. COMPARISON: 10/05/2016. CT abdomen and pelvis. TECHNIQUE: Sonographic evaluation of the abdomen. FINDINGS: LIVER: Measures 17.3 cm. Hepatopedal blood flow. Fatty infiltration manifest ultrasonographically as increased echogenicity of the liver parenchyma. No mass. No intrahepatic bile duct dilatation.Incidental finding(s): Cyst right hepatic lobe 2.3 x 3 cm. GALLBLADDER: Distended gallbladder, no evidence of acute cholecystitis. Gallstones apparent on the CT scan a pole 2016 and not confirmed on the current study. COMMON BILE DUCT: Measures 5.1 mm. No stones. No dilatation. PANCREAS: Unremarkable as visualized. No mass. No ductal dilatation. RIGHT KIDNEY: Measures 6 x 12.4cm. Normal echogenicity. No calculus, mass, or hydronephrosis. LEFT KIDNEY: Atrophic left kidney better appreciated on the CT scan. Incidental finding(s): Simple cyst 3.5 cm. SPLEEN: Normal in size and contour. No mass. AORTA: No aneurysmal dilatation. IVC: Unremarkable. OTHER FINDINGS: Intra-abdominal, right upper quadrant ascites. IMPRESSION: No acute findings related to/accounting for the clinical presentation. Additional benign and/or incidental findings described above. Confirmation of findings on recent CT scan with the exception of tiny gallstones apparent on that study not seen currently.
--- NOTE | 2016-10-07 12:48 | PN ---
DATE: 10/07/2016 Seen and examined at the bedside earlier today. He is out of bed into the chair, complains of feelin g some mild nausea. He felt okay this morning until he got out of bed. Denies any shortness of lily th. No chest pain. Denies any dizziness. VITAL SIGNS: Temperature is 97.9, blood pressure is 129/69, pulse 72, respirations 20, 96 on room ai r. LABORATORY DATA: WBC is 10.0, H and H is 9.7 and 30.8, platelets of 347. Sodium is 135, K is 4.5, B UN 24, creatinine is 1.2. LFTs are within normal limits. Ultrasound was done yesterday and this enrique wed hepatopedal blood flow, some fatty infiltration. No mass, no intrahepatic bile duct dilatation. Incidental finding is a cyst in the right hepatic lobe measuring 2.3 x 3 cm. He is also noted to henry ve a distended gallbladder, no evidence of acute cholecystitis. The gallstones apparent on the CT sc an in 2017 are not confirmed on the current study. The CBD measured 5.1 mm. No stones, no dilatatio n. Pancreas is unremarkable. There is atrophic left kidney with a simple cyst noted 3.5 cm and ther e is right upper quadrant intraabdominal ascites. PHYSICAL EXAMINATION: HEENT: Sclerae are anicteric. NECK: Supple. CARDIAC: S1, S2. LUNGS: Sounds are clear. ABDOMEN: With bowel sounds, soft, palpable hernia, but nontender. No rebound or guarding. ASSESSMENT: Improving abdominal pain. The patient with history of ventral hernia. Duodenal perfora tion with history of surgery. He has a small bowel obstruction, found to have ascites with unknown e tiology. Ultrasound was done. He was noted to have a cyst in the right hepatic lobe measuring 2.3 x 3 cm and also distended gallbladder with no acute evidence of acute cholecystitis and reconfirms the right upper quadrant ascites with a common bile duct of 5.1 mm. No stones or dilatation. Other com orbidities are pulmonary hypertension. The patient has had no bowel movement. Denies any passing ga s. PLAN: He is going to be started on clear liquids and also going to be given a Dulcolax suppository. We will also request for a hepatitis panel. The patient's last colonoscopy was more than 5 years ag o. He denies any known history of colon polyps. The patient was seen and case discussed with Dr. Ra mata. Jenny GIRARD cc: [id number] TT: 10/07/2016 12:48:19 Confirmation # [id number] Dictation # [id number]
--- NOTE | 2016-10-07 13:47 | CARD ---
APPROVED REPORT EXAM: Two-dimensional and M-mode echocardiogram with Doppler and color Doppler. Other Information Quality : FairRhythm : INDICATION PRE-OP/LV DYSFUNCTION, old RI. 2D DIMENSIONS Left Atrium (2D)4.6 (1.6-4.0cm)LVDd5.6 (3.9-5.9cm) LVOT Diameter2.1 (1.8-2.4cm)PWd1.3 (0.7-1.1cm) LVDs5.0 (2.5-4.0cm)FS (%) 11.4 % LVEF (%)24.0 (>50%) M-Mode DIMENSIONS Aortic Root3.40 (2.2-3.7cm)Aortic Cusp Exc.1.10 (1.5-2.0cm) Aortic Valve AoV Peak Bqvqztku232.0cm/sAoV VTI45.2cmAO Peak GR.22mmHg LVOT Peak Oiagmauv59.2cm/sLVOT VTI19.20cmAO Mean GR.12mmHg JEAN (VMAX)1.34cm2 Mitral Valve MV E Thewrrms97.7cm/sMV A Ctxfeabw07.3cm/sE/A ratio1.1 TDI Lateral E' Peak V11.70cm/sMedial E' Peak V3.41cm/sE/Lateral E'7.8 E/Medial E'26.6 Pulmonary Valve PV Peak Hnglertk30.1cm/sPV Peak Grad.3mmHg Tricuspid Valve TR Peak Nhrtnytw191tz/sRAP RUFZVWDN83pcHrIN Peak Gr.55mmHg PTLX84klOv LEFT VENTRICLE The left ventricle is normal size. The septum is thinned. Left ventricle systolic function is severely impaired. There is anteroseptal and apical akinesis. RIGHT VENTRICLE The right ventricle is mildly dilated. ATRIA The left atrium is moderately dilated. The right atrium is mildly dilated. The interatrial septum is intact with no evidence for an atrial septal defect. AORTIC VALVE The aortic valve is moderately calcified. There is mild valvular aortic stenosis. MITRAL VALVE The mitral valve is normal in structure. Mitral regurgitation is mild. TRICUSPID VALVE The tricuspid valve is normal in structure. There is moderate to severe tricuspid regurgitation. There is severe pulmonary hypertension. PULMONIC VALVE The pulmonary valve is normal in structure. GREAT VESSELS The aortic root is normal in size. PERICARDIAL EFFUSION Pleural effusion present. There is no pericardial effusion. <Conclusion> The left ventricle is normal size. The septum is thinned. Left ventricle systolic function is severely impaired. There is anteroseptal and apical akinesis. There is mild valvular aortic stenosis. Mitral regurgitation is mild. There is moderate to severe tricuspid regurgitation. There is severe pulmonary hypertension.
[2016-10-07] MEDS: Morphine 2 mg/ml ISec IVP PRN (15:56)
--- NOTE | 2016-10-07 16:32 | CP.PCM.PN ---
<Delmar Reece - Last Filed: 10/07/16 16:28> Subjective - Date & Time of Evaluation Date of Evaluation: 10/07/16 Time of Evaluation: 16:28 - Subjective Subjective: Surgery Progress note. Dr. Chery Pt seen and examined at bedside. No acute events overnight. Patient now c/o Nausea, no vomiting. States that he does not have much of an appetite. Had a small BM after Dulcolax suppository this AM. Starting to have some mild abdominal pain. Objective - Vital Signs/Intake and Output Vital Signs (last 24 hours): Temp Pulse Resp BP Pulse Ox 97.9 F 72 20 129/69 96 10/07/16 07:29 10/07/16 10:29 10/07/16 07:29 10/07/16 10:29 10/07/16 07:29 Intake and Output: 10/07/16 10/07/16 06:59 18:59 Intake Total 0 Output Total 800 Balance -800 - Medications Medications: Current Medications Acetylcysteine (Acetylcysteine 20%) 4 ml IH BIDRESP [facility] Last Admin: 10/07/16 08:15 Dose: 4 ml Arformoterol Tartrate (Brovana) 15 mcg IH [id number] [facility] Last Admin: 10/07/16 08:15 Dose: 15 mcg Aspirin (Aspirin Chewable) 81 mg PO DAILY [facility] Last Admin: 10/07/16 10:29 Dose: 81 mg Budesonide (Pulmicort Respules) 0.5 mg IH [id number] [facility] Last Admin: 10/07/16 08:15 Dose: 0.5 mg Escitalopram Oxalate (Lexapro) 10 mg PO DAILY [facility] Last Admin: 10/07/16 10:29 Dose: 10 mg Furosemide (Lasix) 40 mg PO DAILY [facility] Last Admin: 10/07/16 10:19 Dose: 40 mg Lisinopril (Zestril) 5 mg PO DAILY [facility] Last Admin: 10/07/16 10:29 Dose: 5 mg Methylphenidate HCl (Ritalin) 5 mg PO BID [facility] Last Admin: 10/07/16 10:19 Dose: 5 mg Metoprolol Tartrate (Lopressor) 50 mg PO DAILY [facility] Last Admin: 10/07/16 10:29 Dose: 50 mg Morphine Sulfate (Morphine) 2 mg IVP Q4H PRN PRN Reason: Pain, moderate (4-7) Last Admin: 10/07/16 15:56 Dose: 2 mg Ondansetron HCl (Zofran Inj) 4 mg IVP Q4H PRN PRN Reason: Nausea/Vomiting Last Admin: 10/07/16 10:33 Dose: 4 mg - Labs Labs: 10/07/16 05:30 10/07/16 05:30 PT 13.4 Seconds (9.9-11.8) H 10/05/16 19:09 INR 1.24 (0.93-1.08) H 10/05/16 19:09 APTT 30.5 Seconds (23.7-30.8) 10/05/16 19:09 - Constitutional Appears: Well, No Acute Distress - Head Exam Head Exam: ATRAUMATIC, NORMAL INSPECTION, NORMOCEPHALIC - Eye Exam Eye Exam: EOMI, Normal appearance, PERRL Pupil Exam: PERRL - ENT Exam ENT Exam: Mucous Membranes Moist - Neck Exam Neck Exam: Full ROM - Respiratory Exam Respiratory Exam: NORMAL BREATHING PATTERN - GI/Abdominal Exam Additional comments: midline surgical scar. large ventral hernia. Soft, mildly distended compared to yesterday. No tenderness to palpation. - Neurological Exam Neurological Exam: Alert, Awake, Oriented x3 - Psychiatric Exam Psychiatric exam: Normal Affect, Normal Mood - Skin Skin Exam: Dry, Normal Color, Warm Assessment and Plan - Assessment and Plan (Free Text) Assessment: 76M with abdominal pain. Patient with reducible ventral hernias. Partial SBO - Now with mild nausea and mild abd pain - serial abdominal exams - if pt starts throwing up, will insert NGT - Dulcolax supp. Tap water enema. - monitor bowel function - No plans for acute surgical intervention at this time. Discussed case with Dr. Vik Reece PGY1 Surgery pager: [phone] <Salvatore Chery - Last Filed: 01/12/17 23:45> Objective - Vital Signs/Intake and Output Vital Signs (last 24 hours): Temp Pulse Resp BP Pulse Ox 98.3 F 70 18 128/77 99 10/15/16 12:00 10/15/16 12:00 10/15/16 12:00 10/15/16 12:00 10/15/16 06:00 - Labs Labs: 10/13/16 06:30 10/14/16 06:45 PT 14.1 Seconds (9.9-11.8) H 10/10/16 10:31 INR 1.31 (0.93-1.08) H 10/10/16 10:31 APTT 33.0 Seconds (23.7-30.8) H 10/10/16 10:31 Assessment and Plan - Assessment and Plan (Free Text) Plan: Patient was seen and examined by me. I agree with assessment and plan as per resident's note.
--- NOTE | 2016-10-07 21:43 | PN ---
DATE: 10/07/2016 REFERRING PHYSICIAN: Dr. Amol David. SUBJECTIVE: He is lying in the bed. Night was unremarkable. No headache, no rhinitis, mild cough. No nausea. Still has abdominal vague pain. No bowel movement. No leg pain or leg swelling. OBJECTIVE: GENERAL: No acute distress. VITAL SIGNS: Temp is 98, heart rate 52, respiratory rate is 20, blood pressure 121/84, pulse ox 97% on room air. HEENT: Moist mucous membrane. No ulcer or oral thrush noted. NECK: Supple. No JVD. LUNGS: Has decreased breath sounds at the bases with scattered rhonchi. HEART: S1 and S2. ABDOMEN: Distended, has multiple hernias. Mild tenderness. EXTREMITIES: There is no edema. NEUROLOGIC: Awake, alert, follows simple command. MEDICATIONS: He is on Mucomyst 20% inhaled twice a day, aspirin 81 mg daily, Brovana 15 mcg inhaled twice a day, Lasix 40 mg daily, Lexapro 10 mg daily, metoprolol tartrate 50 mg daily, morphine 2 mg I V q. 4 hours, Pulmicort inhaled twice a day, Zestril 5 mg daily, Zofran on a p.r.n. basis. Received Dulcolax today. LABORATORY DATA: Shows hemoglobin 9.7, hematocrit 30.8, WBC 10.0, platelet is 347. Sodium 135, pota ssium 4.5, chloride 106, bicarbonate 22, BUN 24, creatinine 1.2, glucose 104, calcium is 8.5. AST 38 , ALT 34, alkaline phosphatase is 98, albumin is 2.9. IMPRESSION AND PLAN: Small-bowel obstruction with ventral hernia, cardiomyopathy with systolic dysfu nction, also pulmonary hypertension, coronary artery disease, history of coronary stent, bilateral sm all pleural effusion, diabetes, hypertension, degenerative joint disease, gastritis, may have compone nt of sleep apnea syndrome. Pulmonary point of view doing okay, continue bronchodilator, keep head e levated at 45 degrees. Continue diuretics. Being followed by GI and surgery. Gastric prophylaxis. Sequential compression device to lower extremity. Follow up labs in the morning. Thank you and aguila downing follow with you. Onofre Lieberman MD cc: [phone] TT: 10/07/2016 21:43:03 Confirmation # [id number] Dictation # [id number]
[2016-10-08 06:13] LABS: HEMATOCRIT 30.4 % (42.0-52.0); MEAN CELL VOLUME 80.4 fL (80.0-105.0); MEAN CORPUSCULAR HEMOGLOBIN 24.9 pg (25.0-35.0); MEAN CORPUSCULAR HGB CONC 30.9 g/dl (31.0-37.0); MEAN PLATELET VOLUME 8.2 fl (7.0-11.0); RED CELL DISTRIBUTION WIDTH 18.5 % (11.5-14.5); WHITE BLOOD COUNT 9.4 10^3/ul (4.5-11.0)
[2016-10-08 06:25] LABS: ALB/GLOB RATIO 0.9 (1.1-1.8); BILIRUBIN,TOTAL 1.3 mg/dL (0.2-1.3); CALCIUM 8.8 mg/dL (8.4-10.5); POTASSIUM 4.4 mmol/L (3.6-5.0); TOTAL PROTEIN 6.2 g/dL (5.8-8.3)
--- NOTE | 2016-10-08 07:34 | CP.PCM.PN ---
Subjective - Date & Time of Evaluation Date of Evaluation: 10/08/16 Time of Evaluation: 08:00 - Subjective Subjective: Stable on 5R. He feels better. No abd pain today. Confused during the night V/S noted. PE: Lungs: clear Cor.: S1S2 Abd.: soft, mild tenderness. + BS Ext.: no edema Neuro.: alert Labs noted. Cr. = 1.4 ECG 10/05: SR with 1st degree AVB, PRWP, IVCD, STTW changes Echo:done. Severe LVD, a-s and apical akinesis, Mild and MR. Mod/Sev. TR and severe PH Objective - Vital Signs/Intake and Output Vital Signs (last 24 hours): Temp Pulse Resp BP Pulse Ox 97.6 F 52 L 20 121/84 97 10/07/16 16:00 10/07/16 16:00 10/07/16 16:00 10/07/16 16:00 10/07/16 16:00 Intake and Output: 10/08/16 10/08/16 06:59 18:59 Intake Total 540 Output Total 400 Balance 140 - Medications Medications: Current Medications Acetylcysteine (Acetylcysteine 20%) 4 ml IH BIDRESP [facility] Last Admin: 10/07/16 22:05 Dose: 4 ml Arformoterol Tartrate (Brovana) 15 mcg IH [id number] [facility] Last Admin: 10/07/16 22:06 Dose: 15 mcg Aspirin (Aspirin Chewable) 81 mg PO DAILY [facility] Last Admin: 10/07/16 10:29 Dose: 81 mg Budesonide (Pulmicort Respules) 0.5 mg IH [id number] [facility] Last Admin: 10/07/16 22:06 Dose: 0.5 mg Escitalopram Oxalate (Lexapro) 10 mg PO DAILY [facility] Last Admin: 10/07/16 10:29 Dose: 10 mg Furosemide (Lasix) 40 mg PO DAILY [facility] Last Admin: 10/07/16 10:19 Dose: 40 mg Lisinopril (Zestril) 5 mg PO DAILY [facility] Last Admin: 10/07/16 10:29 Dose: 5 mg Metoprolol Tartrate (Lopressor) 50 mg PO DAILY [facility] Last Admin: 10/07/16 10:29 Dose: 50 mg Morphine Sulfate (Morphine) 2 mg IVP Q4H PRN PRN Reason: Pain, moderate (4-7) Last Admin: 10/07/16 15:56 Dose: 2 mg Ondansetron HCl (Zofran Inj) 4 mg IVP Q4H PRN PRN Reason: Nausea/Vomiting Last Admin: 10/07/16 10:33 Dose: 4 mg - Labs Labs: 10/08/16 05:10 10/08/16 05:10 PT 13.4 Seconds (9.9-11.8) H 10/05/16 19:09 INR 1.24 (0.93-1.08) H 10/05/16 19:09 APTT 30.5 Seconds (23.7-30.8) 10/05/16 19:09 Assessment and Plan - Assessment and Plan (Free Text) Plan: Assessment: Abd. Pain SBO Multiple GI issues: ventral hernias, ascites, H/O PUD CAD/PCI/WV/Severe LVD Diabetes HBP HLD CVA Rt. THR COPD Valvular Heart Disease: Severe TR, Mild MR, Mild , Severe PH on echo Plan: As per GI and Surgery. Adv. diet as meet. If surgery needed: High Cardiac Risk. If no surgery plannned can resume ASA and Plavix. Continue PO cardiac meds if tolerated. Monitor: labs, I/O, sats., etc. OOB/PT
[2016-10-08] MEDS: Budesonide 0.5 mg/2 ml Inhal Susp UD IH SCH ×2 (07:49→19:50)
[2016-10-08] MEDS: Arformoterol 15 mcg/2 ml Inh Sol IH SCH ×2 (07:49→19:50)
[2016-10-08] MEDS: Acetylcysteine 20% Inhal Soln (4ml) IH SCH ×2 (07:49→19:46)
--- NOTE | 2016-10-08 11:10 | CP.PCM.PN ---
Subjective - Date & Time of Evaluation Date of Evaluation: 10/08/16 Time of Evaluation: 11:05 - Subjective Subjective: General Surgery Progress Note Patient seen and evaluated at bedside. Abdominal discomfort is improved. No n/ v. No BM. Patient to have full liquid diet this am. Patient with episodes of confusion. CT head is pending for today. He is currently awake and alert. Objective - Vital Signs/Intake and Output Vital Signs (last 24 hours): Temp Pulse Resp BP Pulse Ox 97.8 F 62 20 110/68 100 10/08/16 08:00 10/08/16 09:20 10/08/16 08:00 10/08/16 09:20 10/08/16 08:00 Intake and Output: 10/08/16 10/08/16 06:59 18:59 Intake Total 540 Output Total 400 Balance 140 - Medications Medications: Current Medications Acetylcysteine (Acetylcysteine 20%) 4 ml IH BIDRESP [facility] Last Admin: 10/08/16 07:49 Dose: 4 ml Arformoterol Tartrate (Brovana) 15 mcg IH [id number] [facility] Last Admin: 10/08/16 07:49 Dose: 15 mcg Aspirin (Aspirin Chewable) 81 mg PO DAILY [facility] Last Admin: 10/08/16 09:19 Dose: 81 mg Budesonide (Pulmicort Respules) 0.5 mg IH [id number] [facility] Last Admin: 10/08/16 07:49 Dose: 0.5 mg Escitalopram Oxalate (Lexapro) 10 mg PO DAILY [facility] Last Admin: 10/08/16 09:20 Dose: 10 mg Furosemide (Lasix) 40 mg PO DAILY [facility] Last Admin: 10/08/16 09:19 Dose: 40 mg Lisinopril (Zestril) 5 mg PO DAILY [facility] Last Admin: 10/08/16 09:20 Dose: 5 mg Metoprolol Tartrate (Lopressor) 50 mg PO DAILY [facility] Last Admin: 10/08/16 09:20 Dose: 50 mg Morphine Sulfate (Morphine) 2 mg IVP Q4H PRN PRN Reason: Pain, moderate (4-7) Last Admin: 10/07/16 15:56 Dose: 2 mg Ondansetron HCl (Zofran Inj) 4 mg IVP Q4H PRN PRN Reason: Nausea/Vomiting Last Admin: 10/07/16 10:33 Dose: 4 mg - Labs Labs: 10/08/16 05:10 10/08/16 05:10 PT 13.4 Seconds (9.9-11.8) H 10/05/16 19:09 INR 1.24 (0.93-1.08) H 10/05/16 19:09 APTT 30.5 Seconds (23.7-30.8) 10/05/16 19:09 - Constitutional Appears: Non-toxic, No Acute Distress - Head Exam Head Exam: ATRAUMATIC, NORMOCEPHALIC - Eye Exam Eye Exam: EOMI, Normal appearance - ENT Exam ENT Exam: Mucous Membranes Moist - Neck Exam Neck Exam: Full ROM - Respiratory Exam Respiratory Exam: Clear to Ausculation Bilateral. absent: Decreased Breath Sounds, Rhonchi, Wheezes - Cardiovascular Exam Cardiovascular Exam: REGULAR RHYTHM - GI/Abdominal Exam GI & Abdominal Exam: Soft, Hernia (large reducible ventral hernia ). absent: Firm, Guarding, Tenderness - Extremities Exam Extremities Exam: Full ROM. absent: Calf Tenderness, Pedal Edema - Neurological Exam Neurological Exam: Alert, Awake - Psychiatric Exam Psychiatric exam: Normal Affect, Normal Mood - Skin Skin Exam: Normal Color, Warm Assessment and Plan - Assessment and Plan (Free Text) Assessment: 76 y/o male with abdominal pain with likely partial SBO secondary to large reducible ventral hernia. - serial abdominal exams - recommend clear liquid diet with slow advancement as tolerated - ascites noted. Hepatitis panel, further w/u underway per GI. - will f/u with CT head regarding apparent confusion - no surgical intervention at this time.
--- NOTE | 2016-10-08 11:34 | CT ---
PROCEDURE: CT HEAD WITHOUT CONTRAST. HISTORY: period of confusion COMPARISON: 12/06/2014 TECHNIQUE: Axial computed tomography images were obtained through the head/brain without intravenous contrast. Radiation dose: Total exam DLP = 774 mGy-cm. This CT exam was performed using one or more of the following dose reduction techniques: Automated exposure control, adjustment of the mA and/or kV according to patient size, and/or use of iterative reconstruction technique. FINDINGS: HEMORRHAGE: No intracranial hemorrhage. BRAIN: No mass effect or edema. Chronic encephalomalacia and atrophy is seen in the right frontal lobe extending to the periventricular white matter. 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 There are no acute intracranial findings VENTRICLES: Unremarkable. No hydrocephalus. CALVARIUM: Unremarkable. PARANASAL SINUSES: Unremarkable as visualized. No significant inflammatory changes. MASTOID AIR CELLS: Unremarkable as visualized. No inflammatory changes. OTHER FINDINGS: None. IMPRESSION: Chronic encephalomalacia and atrophy in the right mid and posterior frontal lobe and left medial occipital lobe. No acute findings
--- NOTE | 2016-10-08 11:54 | PCM.PSYCH ---
Initial Psychiatric Evaluation - Initial Psychiatric Evaluation Legal Status: Capacity Chief Complaint (in patient's own words): Of abdominal pain Patient's Reaction to Hospitalization: Patient appeared presently appears to be comfortable. He is not complaining of abdominal distress nor depression History of Present Illness and Precipitating Events: I had been contacted the last night by the patient's concern to daughter Shayna who observed that the patient had been hospitalized for 2 days, had periods of confusion which were not evident prior to my having evaluated him more during the course of my evaluation of him. The patient's daughter was concerned that the Ritalin the patient had been started on several days previously (I had made a home visit last week at which time Ritalin was started after consultation with Dr. Cr (was the cause of this confusion I had initially evaluated this patient at the [facility] on August 13 because of concern over the patient's depression and He had been obsessing over the fact that he had suffered a stroke previously He was having difficulty in adjusting to his situation "I felt something was taken away" He was perseverating over an incident where he suffered a stroke about 1-1/2 years ago during an outpatient procedure. He evidently been placed in a rehabilitation in [facility] where according to the patient he was put on platelets. When I had seen him he was complaining that he couldn't adjust one to what happened to it and questioned why it happened and became depressed over this. He noted also that 2 years ago he had undergone a hip replacement of [facility] The patient is a e[place] of [place] where he grew up He described himself as having been a better than average student who graduated from high school. 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 He at age 19 and 1962 to his [place] who is the same age The couple have been for 56 years. He described his as being a "good " who is healthy indicated was good (although as it turns out at the time that I had evaluated him she herself was hospitalized for I hypertensive episode). She had worked until they had their first child at [facility] The couple have 2 daughters born in 1962 in 1964, both of described as well. 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 She Had Been for 6 Years and Is Now . He Described His Children As Being "Good He Also Has 2 Sisters One Who of a Heart Attack 10 Years Ago and Another Who about 1 Years Ago Also Heart Attack His Father of a Neurologic Problem in 1984 of ALS Which He Suffered from for 2 Years. His Mother in Her 80s and 1986 of "Old Age" When I'd Seen of the Patient Perseverated, Blaming Himself for What Had Occurred (Stroke) "It Never Should've Occurred" He Had Just Bought a New SUV and Was Feeling Good According to the Patient. Plus She Has a Home in [place] and Now with a "Snap of the Finger" and Has Been "Taken from Me" He Indicated That He Is Not Driven since His Stroke. 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 Cr Had Started Him on Lexapro 3 -4 Months Previous to That to Help Calm Him down and Allow Him to Sleep" According to the Patient Developed a "Big Itch" "All over My Body". 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 He Is Also Taking Atarax When Necessary The Possibility of the Use of Breast Withdrawal, Thorazine or Elavil Was Considered the Patient Became Sedate at [facility] and Is on This Regimen of Increased Lexapro and Klonopin When I Made a Home Visit Last Week the Patient Seemed to Be Alert but Was Having Trouble Initiating Things That the Family Was Concerned about His past 68 As Such the Patient Had Been Started on a Low Dose of Ritalin (5 Mg Twice a Day ) but the Patient Now Winds up in the Hospital with a Reported Confusional State Current Medications: Active Medications Generic Name Dose Route Start Last Admin Trade Name Freq PRN Reason Stop Dose Admin Acetylcysteine 4 ml 10/06/16 20:00 10/08/16 07:49 Acetylcysteine 20% IH 4 ml BIDRESP [facility] Administration Arformoterol Tartrate 15 mcg 10/06/16 20:00 10/08/16 07:49 Brovana IH 15 mcg [id number] [facility]IAN Administration Aspirin 81 mg 10/07/16 10:00 10/08/16 09:19 Aspirin Chewable PO 81 mg DAILY [facility]IAN Administration Budesonide 0.5 mg 10/06/16 20:00 10/08/16 07:49 Pulmicort Respules IH 0.5 mg [id number] [facility]IAN Administration Escitalopram Oxalate 10 mg 10/07/16 10:00 10/08/16 09:20 Lexapro PO 10 mg DAILY GILLIAN Administration Furosemide 40 mg 10/07/16 10:00 10/08/16 09:19 Lasix PO 40 mg DAILY G[facility]IAN Administration Lisinopril 5 mg 10/07/16 10:00 10/08/16 09:20 Zestril PO 5 mg DAILY GILLIAN Administration Metoprolol Tartrate 50 mg 10/07/16 10:00 10/08/16 09:20 Lopressor PO 50 mg DAILY GILLIAN Administration Morphine Sulfate 2 mg 10/05/16 23:24 10/07/16 15:56 Morphine IVP 2 mg Q4H PRN Administration Pain, moderate (4-7) Ondansetron HCl 4 mg 10/05/16 23:24 10/07/16 10:33 Zofran Inj IVP 4 mg Q4H PRN Administration Nausea/Vomiting Past Psychiatric History - Past Psychiatric History Prior Psychiatric Treatment: See history of present illness History of Abuse: denied History of ETOH/Drug Use: denied History of Family Illness: denied Pertinent Medical Hx (Current Medical&Sleep Prob, Allergies): Allergies Allergy/AdvReac Type Severity Reaction Status Date / Time Penicillins Allergy URTICARIA Verified 07/30/16 16:46 Sulfa (Sulfonamide Allergy URTICARIA Verified 07/30/16 16:46 Antibiotics) Atorvastatin [Lipitor] 40 mg PO DIN #0 tab 08/03/16 Escitalopram [Lexapro] 10 mg PO DAILY #0 tab 08/03/16 Furosemide [Lasix] 40 mg PO DAILY #0 tab 08/03/16 Lisinopril [Zestril] 5 mg PO DAILY #0 tab 08/03/16 Metoprolol Tartrate [Lopressor] 50 mg PO DAILY #0 tab 08/03/16 Aspirin [Aspirin Chewable] 81 mg PO DAILY 10/05/16 Clopidogrel [Plavix] 75 mg PO DAILY 10/05/16 Methylphenidate [Methylphenidate HCl] 5 mg PO BID 10/05/16 Sennosides A and B [Senokot Tab] 17.2 mg PO PRN PRN 10/05/16 Review of Systems - Constitutional Constitutional: UN - EENT Eyes: UNREMARKABLE Ears: As Per HPI, UNREMARKABLE Nose/Mouth/Throat: UNREMARKABLE - Cardiovascular Cardiovascular: As Per HPI - Respiratory Respiratory: UNREMARKABLE - Genitourinary Genitourinary: UNREMARKABLE - Reproductive: Male Reproductive:Male: UNREMARKABLE - Musculoskeletal Musculoskeletal: UNREMARKABLE - Integumentary Integumentary: UNREMARKABLE - Neurological Neurological: UNREMARKABLE - Psychiatric Psychiatric: As Per HPI - Endocrine Endocrine: UNREMARKABLE - Hematologic/Lymphatic Hematologic: UNREMARKABLE Mental Status Examination - Affect Affect: Blunted - Motor Activity Motor Activity: Calm - Reliability in Providing Information Reliability in Providing Information: Fair - Speech Speech: Relevant, Irrelevant (Surprisingly focused most of the time) - Mood Mood: Neutral (Nursing and daughter report intermittent periods of confusion) - Obsessions/Compulsions Obsessions: Yes Compulsions: No - Cognitive Functions Orientation: Person, Place, Situation, Time Sensorium: Alert, Drowsy Attention/Concentration: Easily distracted Estimate of Intelligence: Average (Surprisingly was able to identify me by name , occupation, previous interactions) - Risk Risk: Diminished functioning - Strength & Assets Inventory Strength & Assets Inventory: Family support - Limitations Limitations: Other DSM 5 DX - DSM 5 DSM 5 Diagnosis: Rule out delirium - Recommended/Plan of Treatment Treatment Recommendations and Plan of Treatment: Have discussed case with Dr. Mcghee Have held Ritalin Prognosis: Guarded
--- NOTE | 2016-10-08 12:48 | PN ---
DATE: 10/08/2016 The patient is a 76-year-old, seen and examined, awake, alert, oriented. He states he came with excr uciating abdominal pain, but doing better now. He had 1 bowel movement yesterday on clear liquid. N o abdominal pain, no nausea or vomiting. PHYSICAL EXAMINATION: VITAL SIGNS: He is afebrile, pulse 62, respirations 20, blood pressure 110/68. LUNGS: Bilateral fair airflow, no rhonchi or crackle. HEART: S1, S2 audible. ABDOMEN: Soft. He has multiple ventral hernias, but they are reducible. No palpable discomfort. NEUROLOGIC: He is awake and alert, somewhat confused, disoriented. LABORATORY EXAMINATION: WBCs 9.4, hemoglobin 9.4, hematocrit 30.4, platelet of 356. Chemistry: Sod ium 135, potassium 4.4, chloride 105, CO2 22, BUN 22, creatinine 1.4, blood sugar of 81. CT done on 10/05 shows multiple ventral hernias with partial small bowel obstruction. The patient seems to be doing well. His diet has been advanced to dysphagia modified consistency. W e will see the response. If he is able to tolerate, then discuss with Dr. Scott's nurse practitio ner and she will order for KUB to see if there is any dilated bowel loops. Otherwise, we will hold o ff the diet and keep him on clear liquid. Physical therapy evaluation has been requested. His elect rolytes are normal. His CBC shows normocytic anemia. So, we will continue him on aspirin 81 daily. He is on Dulcolax. He is on Lasix 40 daily, Lexapro 10 mg daily, metoprolol 50 mg daily. He is on lisinopril. We will continue that also. Claire Owen MD cc: [phone] TT: 10/08/2016 12:47:52 Confirmation # [id number] Dictation # [id number]
--- NOTE | 2016-10-08 14:26 | RAD ---
HISTORY: sbo/consitpation COMPARISON: No prior. FINDINGS: BOWEL: Mildly dilated loops of small bowel are seen in the left upper quadrant. This could represent partial obstruction or ileus BONES: Normal. OTHER FINDINGS: None. IMPRESSION: Mildly dilated loops of small bowel are seen in the left upper quadrant. This could represent partial obstruction or ileus
--- NOTE | 2016-10-08 14:32 | PN ---
DATE: 10/08/2016 REFERRING PHYSICIAN: Dr. Amol David. SUBJECTIVE: The patient is lying in the bed, feels much better. No headache, no rhinitis, mild coug h. No nausea, no vomiting. Had a bowel movement overnight. No leg pain or leg swelling. OBJECTIVE: GENERAL: No acute distress. VITAL SIGNS: Temperature is 98, heart rate is 62, respiratory rate is 20, blood pressure 110/68, pul se ox 100% on room air. HEENT: Moist mucous membranes. Small oral cavity. NECK: Supple. No JVD. LUNGS: Has decreased breath sounds at the bases. HEART: S1, S2. ABDOMEN: Soft. Has a ventral hernia, no tenderness today. EXTREMITIES: There is not much edema. NEUROLOGIC: Awake, alert, follows simple command. MEDICATIONS: He is on Mucomyst 20% inhaled twice a day, aspirin 81 mg daily, Brovana inhaled twice a day, Lasix 40 mg daily, Lexapro 10 mg daily, metoprolol tartrate 50 mg daily, morphine 2 mg q. 4 hardik rs p.r.n., Pulmicort inhaled twice a day, Zestril 5 mg daily, Zofran on a p.r.n. basis. LABORATORY DATA: Shows hemoglobin 9.4, hematocrit 30.4, WBC 9.4, platelet is 356. Sodium 135, potas sium 4.4, chloride 105, bicarbonate 22, BUN 22, creatinine 1.4, glucose is 81, calcium is 8.8, AST 34 , ALT 34, alkaline phosphatase is 95. Albumin is 3.3. IMPRESSION AND PLAN: Some small-bowel obstruction secondary to ventral hernia, cardiomyopathy with s ystolic dysfunction, pulmonary hypertension, coronary artery disease, history of coronary stent, has a small bilateral pleural effusion, diabetes, hypertension, degenerative joint disease, gastritis, henry s may be component of sleep apnea syndrome. Finally had a bowel movement last night. His abdomen is soft, much softer. I doubt he is a surgical candidate. Pulmonary point of view, he is doing well. 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 Fall pr ecaution. Case discussed with the nurse practitioner on the floor, also spoke to nurse. Thank you a nd will follow with you. Onofre Lieberman MD cc: [phone] TT: 10/08/2016 14:31:30 Confirmation # [id number] Dictation # [id number] jn
[2016-10-08] MEDS: Morphine 2 mg/ml ISec IVP PRN (15:47)
--- NOTE | 2016-10-08 19:00 | CP.PCM.PN ---
Subjective - Date & Time of Evaluation Date of Evaluation: 10/08/16 Time of Evaluation: 12:00 - Subjective Subjective: Seen and examined at beside earlier today. Denies abdominal pain, no N/V. He was given enemas yesterday and reported to have BM but unclear of output amount. No reports of overt GI Bleed. Diet was advanced to full liquids as per surgery. He went for ct scan for confusion, it was negative for acute findings, report chronic microvascular changes. Objective - Vital Signs/Intake and Output Vital Signs (last 24 hours): Temp Pulse Resp BP Pulse Ox 97.8 F 62 20 110/68 100 10/08/16 08:00 10/08/16 09:20 10/08/16 08:00 10/08/16 09:20 10/08/16 08:00 Intake and Output: 10/08/16 10/08/16 06:59 18:59 Intake Total 540 300 Output Total 400 480 Balance 140 -180 - Medications Medications: Current Medications Acetylcysteine (Acetylcysteine 20%) 4 ml IH BIDRESP [facility] Last Admin: 10/08/16 07:49 Dose: 4 ml Arformoterol Tartrate (Brovana) 15 mcg IH [id number] [facility] Last Admin: 10/08/16 07:49 Dose: 15 mcg Aspirin (Aspirin Chewable) 81 mg PO DAILY [facility] Last Admin: 10/08/16 09:19 Dose: 81 mg Budesonide (Pulmicort Respules) 0.5 mg IH [id number] [facility] Last Admin: 10/08/16 07:49 Dose: 0.5 mg Escitalopram Oxalate (Lexapro) 10 mg PO DAILY [facility] Last Admin: 10/08/16 09:20 Dose: 10 mg Furosemide (Lasix) 40 mg PO DAILY [facility] Last Admin: 10/08/16 09:19 Dose: 40 mg Lisinopril (Zestril) 5 mg PO DAILY [facility] Last Admin: 10/08/16 09:20 Dose: 5 mg Metoprolol Tartrate (Lopressor) 50 mg PO DAILY [facility] Last Admin: 10/08/16 09:20 Dose: 50 mg Morphine Sulfate (Morphine) 2 mg IVP Q4H PRN PRN Reason: Pain, moderate (4-7) Last Admin: 10/08/16 15:47 Dose: 2 mg Ondansetron HCl (Zofran Inj) 4 mg IVP Q4H PRN PRN Reason: Nausea/Vomiting Last Admin: 10/07/16 10:33 Dose: 4 mg - Labs Labs: 10/08/16 05:10 10/08/16 05:10 PT 13.4 Seconds (9.9-11.8) H 10/05/16 19:09 INR 1.24 (0.93-1.08) H 10/05/16 19:09 APTT 30.5 Seconds (23.7-30.8) 10/05/16 19:09 - Constitutional Appears: No Acute Distress - Eye Exam Eye Exam: Normal appearance. absent: Scleral icterus - ENT Exam ENT Exam: Mucous Membranes Moist - Respiratory Exam Respiratory Exam: NORMAL BREATHING PATTERN. absent: Respiratory Distress - Cardiovascular Exam Cardiovascular Exam: +S1, +S2 - GI/Abdominal Exam GI & Abdominal Exam: Soft, Hernia, Normal Bowel Sounds. absent: Guarding, Tenderness, Rebound - Extremities Exam Extremities Exam: absent: Calf Tenderness, Pedal Edema - Neurological Exam Neurological Exam: Alert, Awake, Oriented x3 Assessment and Plan - Assessment and Plan (Free Text) Assessment: ASSESSMENT: Resolving abdominal pain Parital SBO Ventral Hernia H/O perforated ulcer with surgical intervention Hepatic right lobe cyst Pulmonary hypertension Consitpation PLAN: Abdominal xray: partial SBO on full liquid Morphine for pain Zofran prn on Aspirin repeat ct scan with oral contrast as per surgery as per cardiology The patient was seen and case discussed with Dr. Scott.
[2016-10-09] MEDS: Arformoterol 15 mcg/2 ml Inh Sol IH SCH ×2 (07:19→19:35)
[2016-10-09] MEDS: Acetylcysteine 20% Inhal Soln (4ml) IH SCH ×2 (07:19→19:35)
[2016-10-09] MEDS: Budesonide 0.5 mg/2 ml Inhal Susp UD IH SCH ×2 (07:19→19:35)
[2016-10-09 07:43] LABS: HEMATOCRIT 29.1 % (42.0-52.0); MEAN CELL VOLUME 80.6 fL (80.0-105.0); MEAN CORPUSCULAR HEMOGLOBIN 24.9 pg (25.0-35.0); MEAN CORPUSCULAR HGB CONC 30.9 g/dl (31.0-37.0); MEAN PLATELET VOLUME 8.2 fl (7.0-11.0); RED CELL DISTRIBUTION WIDTH 18.4 % (11.5-14.5); WHITE BLOOD COUNT 9.8 10^3/ul (4.5-11.0)
[2016-10-09 08:10] LABS: ALB/GLOB RATIO 0.9 (1.1-1.8); CALCIUM 8.7 mg/dL (8.4-10.5); POTASSIUM 4.3 mmol/L (3.6-5.0)
--- NOTE | 2016-10-09 08:35 | CP.PCM.PN ---
<MinaJimenez - Last Filed: 10/09/16 08:32> Subjective - Date & Time of Evaluation Date of Evaluation: 10/09/16 Time of Evaluation: 08:32 - Subjective Subjective: Surgery for Dr. Chery Pt s&e. Per nursing note, pt have periods of confusion. Denies F/C/N/V/CP/SOB. Tolerating FLD. Reports BM. +OOB. CT w PO contrast this AM per GI. Objective - Vital Signs/Intake and Output Vital Signs (last 24 hours): Temp Pulse Resp BP Pulse Ox 98.0 F 57 L 18 110/77 98 10/09/16 07:30 10/09/16 07:30 10/09/16 07:30 10/09/16 07:30 10/09/16 07:30 Intake and Output: 10/09/16 10/09/16 06:59 18:59 Intake Total 240 Output Total 300 Balance -60 - Medications Medications: Current Medications Acetylcysteine (Acetylcysteine 20%) 4 ml IH BIDRESP [facility] Last Admin: 10/09/16 07:19 Dose: 4 ml Alprazolam (Xanax) 0.25 mg PO BID [facility] PRN Reason: Protocol Stop: 10/15/16 18:31 Last Admin: 10/08/16 20:37 Dose: 0.25 mg Arformoterol Tartrate (Brovana) 15 mcg IH [id number] [facility] Last Admin: 10/09/16 07:19 Dose: 15 mcg Aspirin (Aspirin Chewable) 81 mg PO DAILY [facility] Last Admin: 10/08/16 09:19 Dose: 81 mg Budesonide (Pulmicort Respules) 0.5 mg IH [id number] [facility] Last Admin: 10/09/16 07:19 Dose: 0.5 mg Escitalopram Oxalate (Lexapro) 10 mg PO DAILY [facility] Last Admin: 10/08/16 09:20 Dose: 10 mg Furosemide (Lasix) 40 mg PO DAILY [facility] Last Admin: 10/08/16 09:19 Dose: 40 mg Lisinopril (Zestril) 5 mg PO DAILY [facility] Last Admin: 10/08/16 09:20 Dose: 5 mg Metoprolol Tartrate (Lopressor) 50 mg PO DAILY [facility] Last Admin: 10/08/16 09:20 Dose: 50 mg Morphine Sulfate (Morphine) 2 mg IVP Q4H PRN PRN Reason: Pain, moderate (4-7) Last Admin: 10/08/16 15:47 Dose: 2 mg Ondansetron HCl (Zofran Inj) 4 mg IVP Q4H PRN PRN Reason: Nausea/Vomiting Last Admin: 10/07/16 10:33 Dose: 4 mg - Labs Labs: 10/09/16 07:00 10/09/16 07:00 PT 13.4 Seconds (9.9-11.8) H 10/05/16 19:09 INR 1.24 (0.93-1.08) H 10/05/16 19:09 APTT 30.5 Seconds (23.7-30.8) 10/05/16 19:09 - Constitutional Appears: No Acute Distress - Head Exam Head Exam: ATRAUMATIC, NORMAL INSPECTION, NORMOCEPHALIC - Eye Exam Eye Exam: EOMI, Normal appearance, PERRL Pupil Exam: NORMAL ACCOMODATION, PERRL - ENT Exam ENT Exam: Mucous Membranes Moist, Normal Exam - Neck Exam Neck Exam: Full ROM, Normal Inspection. absent: Lymphadenopathy - Respiratory Exam Respiratory Exam: Clear to Ausculation Bilateral, NORMAL BREATHING PATTERN. absent: Accessory Muscle Use, Respiratory Distress - Cardiovascular Exam Cardiovascular Exam: REGULAR RHYTHM, +S1, +S2. absent: Murmur - GI/Abdominal Exam GI & Abdominal Exam: Soft, Hernia, Normal Bowel Sounds. absent: Distended, Firm , Guarding, Rigid, Tenderness Additional comments: Multiple large hernias: reducible. Well healed scars. - Extremities Exam Extremities Exam: Normal Inspection - Back Exam Back Exam: NORMAL INSPECTION - Neurological Exam Neurological Exam: Alert, Awake, CN II-XII Intact, Oriented x3 - Psychiatric Exam Psychiatric exam: Normal Mood - Skin Skin Exam: Dry, Intact, Normal Color, Warm. absent: Erythema Assessment and Plan - Assessment and Plan (Free Text) Assessment: 76 y/o male with abdominal pain with likely partial SBO secondary to large reducible ventral hernia. - F/U CT A/P PO contrast - serial abdominal exams - diet with slow advancement as tolerated: Tolerating FLD - no surgical intervention at this time. Will DW Dr. Chery <Salvatore Chery - Last Filed: 01/12/17 23:46> Objective - Vital Signs/Intake and Output Vital Signs (last 24 hours): Temp Pulse Resp BP Pulse Ox 98.3 F 70 18 128/77 99 10/15/16 12:00 10/15/16 12:00 10/15/16 12:00 10/15/16 12:00 10/15/16 06:00 - Labs Labs: 10/13/16 06:30 10/14/16 06:45 PT 14.1 Seconds (9.9-11.8) H 10/10/16 10:31 INR 1.31 (0.93-1.08) H 10/10/16 10:31 APTT 33.0 Seconds (23.7-30.8) H 10/10/16 10:31 Assessment and Plan - Assessment and Plan (Free Text) Plan: Patient was seen and examined by me. I agree with assessment and plan as per resident's note.
[2016-10-09] MEDS ORDERED: Barium Sulfate Susp 2.1% w/v, 2.0% w/w 450 mL Bottle PO ONE (09:06)
--- NOTE | 2016-10-09 14:46 | CT ---
CT abdomen and pelvis without IV contrast Indication: Small bowel obstruction Technique: Contiguous axial images of the abdomen and pelvis. Oral contrast was administered. No IV contrast given. Coronal and Sagittal reformats generated and reviewed. This CT exam was performed using 1 or more of the following dose reduction techniques: Automated exposure control, adjustment of the MAA and/or kV according to patient size, and/or use of iterative reconstruction technique. Radiation dose: Total exam DLP = 1203.18 mGy-cm. Comparison: CT abdomen and pelvis with oral and IV contrast performed 10/05/16 Findings: Lung bases reveal lmhs-[id number]-[id number]-right pleural effusions and associated consolidations. Partially imaged cardiomegaly and dense coronary artery calcifications. Soft tissue edema. Small to moderate abdominal ascites. Small pelvic ascites. 2.2 cm hepatic hypodensity measures approximately 17 Hounsfield units, higher than expected for simple cyst. Too small to characterize 8 mm hepatic hypodensity, left lobe. Gallstones in the gallbladder. Pancreatic atrophy. 6.0 x 9.0 cm fluid collection in the abdomen near the pancreatic uncinate process/ head, possibly arising from the pancreas itself. The unenhanced spleen and adrenal glands appear grossly unremarkable. Atrophic left kidney. 4.1 cm left renal hypodensity measures approximately 22 Hounsfield units, indeterminate. Additional 1.4 cm hypodense lesion involving the right kidney. The stomach is nondistended. Dilated small bowel loops re-identified compatible with partial obstruction. Multiple ventral hernias, at least 3- located midline, left of midline, and left inguinal canal containing bowel and ascites. The largest resides within the left lower quadrant and contains both bowel and ascites. The appendix appears within normal limits of caliber. There is no definite free air. Atherosclerotic calcifications of the aorta. The prostate gland measures approximately 3.6 x 5.5 cm and contains calcifications. Probable bilateral hydroceles. The urinary bladder appears unremarkable. Multilevel degenerative changes. Right hip arthroplasty. Impression: At least 3 large abdominal wall hernias within the midline, left of midline, and left inguinal canal with findings compatible with persistent small bowel obstruction as above. Moderate abdominal ascites. Small pelvic ascites. Cholelithiasis. Focal fluid density within the right upper quadrant possibly arising from the pancreas; if in fact this arises from the pancreas, differential diagnosis includes cystic neoplasm versus sequela of prior pancreatitis (dilated side duct radicles or tiny pseudocyst). Ystz-tzgqewh-jupc-right pleural effusions and associated consolidations. Soft tissue edema. 2.2 cm hepatic hypodensity measures approximately 17 Hounsfield units, higher than expected for simple cyst. Too small to characterize 8 mm hepatic hypodensity, left lobe. Atrophic left kidney. 4.1 cm left renal hypodensity measures approximately 22 Hounsfield units, indeterminate. Additional 1.4 cm hypodense lesion involving the right kidney. Additional findings as above.
--- NOTE | 2016-10-09 16:42 | PN ---
DATE: 10/09/2016 SUBJECTIVE: This patient was seen and evaluated earlier. The patient has no complaints of any abdom inal pain. He wants to eat. PHYSICAL EXAMINATION: VITAL SIGNS: Temperature is 98, blood pressure is 110/77, pulse 57, O2 saturation 98%. HEENT: Atraumatic, anicteric. NECK: Supple. HEART: S1, S2 heard. LUNGS: Bilateral air entry present. ABDOMEN: Soft. There were multiple ventral hernias is present. EXTREMITIES: No edema. No cyanosis. LABORATORY DATA: Hemoglobin 9, hematocrit is 29.1, WBC is 9.8, platelets 360. LFTs are essentially unremarkable. Chemistry is unremarkable. CT scan of the abdomen and pelvis done was reviewed, has a large hernia containing loops of the small bowel causing partial obstructive pattern. The patient a lso has in addition, a left inguinal hernia containing bowel loops. The patient also has gallstones and a cystic lesion in the right upper quadrant area. The patient has ascites and also has loculated collection of the cystic in the right upper quadrant area. He has small gallstones. IMPRESSION: This 76-year-old patient admitted with partially intestinal obstruction. Multiple large ventral hernias and also left inguinal hernia containing loops of the bowel. In addition, patient h as ascites with loculated area in the right upper quadrant area. Pancreatic cyst with some loculated fluid, a pancreatic cyst or pseudocyst versus loculated collection. At this point we will discuss w ith the surgeon regarding this. One of the reasonable things to do at this point with a patient has partial obstruction is continue the clear liquid diet and colonoscopy technically difficult to prep i n view of the partial obstruction. The problem appears to be in the small bowel rather than in the c olonic area. We will consider MRCP to further evaluate it. Thank you very much for allowing us to participate in the care of the patient. Kary Scott MD cc: [id number] TT: 10/09/2016 16:41:56 Confirmation # [id number] Dictation # [id number] nikhil
--- NOTE | 2016-10-09 18:10 | PN ---
DATE: 10/09/2016 REFERRING PHYSICIAN: Dr. Amol David. SUBJECTIVE: He just come back from CAT scan, valve inspector at the bedside, having a bowel movement. Janet rt of breath with exertion. No chest pain. Still has abdominal pain. No leg pain or leg swelling. OBJECTIVE: GENERAL: No acute distress. VITAL SIGNS: Temperature is 98, heart rate is 68, respiratory rate is 18, blood pressure 92/64, puls e ox 94% on room air. HEENT: Moist mucous membranes. Crowded airway. Mallampati score is 4. NECK: Supple. No JVD. LUNGS: Decreased breath sounds at bases, right more than the left. HEART: S1, S2. ABDOMEN: Has multiple ventral hernia with dilated loop bowel. EXTREMITIES: There is not much edema. NEUROLOGIC: Awake, alert, follows simple command. MEDICATIONS: He is on Mucomyst 20% inhaled twice a day, aspirin 81 mg daily, Brovana 15 mcg inhaled twice a day, Lasix 40 mg daily, Lexapro 10 mg daily, metoprolol tartrate 50 mg daily, Pulmicort inhal ed twice a day, Ultram 50 mg 3 times a day, Xanax 0.25 mg twice a day, Zestril 5 mg daily, Zofran on a p.r.n. basis. LABORATORY DATA: Shows hemoglobin 9.0, hematocrit 29.1, WBC 9.8, platelet is 60. Sodium 134, potass ium 4.3, chloride 104, bicarbonate 23, BUN 25, creatinine 1.4, glucose is 80, calcium is 8.7. AST 33 , ALT 28, alkaline phosphatase is 90, albumin is 2.8. Had abdominal and pelvis CT done shows 3 large abdominal wall hernias within the midline, left of midline and left inguinal canal with the findings compatible with persistent small-bowel obstruction, moderate abdominal ascites and small pelvic asci bhavya, cholelithiasis, focal fluid density within the right upper quadrant, possibly arising from the p ancreas, neoplasm cannot be ruled out. There is also pleural effusion, soft tissue edema, hype rdensity, atrophic left kidney. IMPRESSION AND PLAN: Small-bowel obstruction secondary to ventral hernia, has cardiomyopathy with sy stolic dysfunction, pulmonary hypertension, coronary artery disease, history of coronary stent, small bilateral pleural effusion, diabetes, hypertension, degenerative joint disease, gastric neopla sm, may have sleep apnea syndrome. I spoke to valve inspector at bedside. I spoke to nursing staff. Brandon roper followed by GI and surgery. Pulmonary point of view, keep head elevated at 45 degrees, continue br onchodilator and aspiration precaution. Gastric prophylaxis. SCD to lower extremities. We will sug gest placing patient n.p.o. and may need nasogastric tube for intermittent suction, but I will leave those decisions for GI and surgical team. Follow up labs in the morning. Thank you and will follow with you. Onofre Lieberman MD cc: [id number] TT: 10/09/2016 18:09:29 Confirmation # [id number] Dictation # [id number] mn
--- NOTE | 2016-10-09 18:41 | PN ---
DATE: 10/09/2016 SUBJECTIVE: The patient is 76 years old, seen and examined, lying in bed. He was n.p.o. earlier for a CAT scan. Denies any nausea or vomiting. No significant abdominal pain. PHYSICAL EXAMINATION: VITAL SIGNS: He is afebrile, pulse 60, respirations 18, blood pressure 92/64. LUNGS: Bilateral fair airflow, no rhonchi or crackle. HEART: S1, S2 audible. ABDOMEN: Soft with multiple ventral hernias, none of them is incarcerated, they are reducible. EXTREMITIES: Bilateral legs, no edema. LABORATORY: WBC is 9.8, hemoglobin 9, hematocrit 29, platelets 360. Chemistry: Sodium 134, potassi um 4.3, chloride 104, CO2 of 23, BUN 25, creatinine 1.4, blood sugar . He had a CT scan of the abdomen and pelvis done that shows a large abdominal wall hernia and left inguinal canal hernia, mode rate abdominal ascites and pelvic ascites, cholelithiasis and there is focal fluid density within the right upper quadrant, possibly arising from the pancreas, could be neoplasm versus pancreatiti s. ASSESSMENT AND PLAN: 1. Abdominal pain, status post probably secondary to multiple ventral hernias. 2. Hypertension. 3. Partial intestinal obstruction, but that has resolved. 4. Mild renal insufficiency. 5. Chronic anemia. 6. Mild dementia. 7. Questionable cystic mass in the pancreas. 8. Generalized osteoarthritis. 9. History of chronic obstructive pulmonary disease. 10. Non-insulin dependent diabetes. 11. Cholelithiasis. 12. Coronary artery disease. 13. Bilateral pleural effusion. PLAN: I discussed with Dr. Scott, and he will be treated conservatively. He states colonoscopy w ill be difficult in view of his partial obstruction plus ventral hernia. There is a high chance of p erforation. He will discuss with Dr. Chery and with the family and for now will keep him on a clear liquid diet and analgesic as needed. Upon on his 's request morphine makes him hallu cinate so that has been discontinued. Continue on Xanax as needed. Claire Owen MD cc: [phone] TT: 10/09/2016 18:40:56 Confirmation # [id number] Dictation # [id number] dn
[2016-10-10 07:19] LABS: HEMATOCRIT 27.9 % (42.0-52.0); MEAN CELL VOLUME 80.2 fL (80.0-105.0); MEAN CORPUSCULAR HEMOGLOBIN 24.7 pg (25.0-35.0); MEAN CORPUSCULAR HGB CONC 30.8 g/dl (31.0-37.0); MEAN PLATELET VOLUME 8.1 fl (7.0-11.0); RED CELL DISTRIBUTION WIDTH 18.5 % (11.5-14.5); WHITE BLOOD COUNT 8.7 10^3/ul (4.5-11.0)
[2016-10-10] MEDS: Acetylcysteine 20% Inhal Soln (4ml) IH SCH ×2 (07:33→20:43)
[2016-10-10] MEDS: Arformoterol 15 mcg/2 ml Inh Sol IH SCH ×2 (07:33→20:43)
[2016-10-10] MEDS: Budesonide 0.5 mg/2 ml Inhal Susp UD IH SCH ×2 (07:33→20:44)
[2016-10-10 07:54] LABS: ALB/GLOB RATIO 0.9 (1.1-1.8); CALCIUM 8.4 mg/dL (8.4-10.5)
--- NOTE | 2016-10-10 10:30 | CP.PCM.PN ---
<Heidi Luther - Last Filed: 10/10/16 10:28> Subjective - Date & Time of Evaluation Date of Evaluation: 10/10/16 Time of Evaluation: 10:28 - Subjective Subjective: General Surgery - Dr. Chery Pt S&E. LYRICO. PT tolerating clear liquid diet, wishes to try eating a little more. Pt states he is passing flatus and having BMs. He denies any abdominal pain, N/V, F/C, SOB/Cp. Objective - Vital Signs/Intake and Output Vital Signs (last 24 hours): Temp Pulse Resp BP Pulse Ox 97.7 F 68 18 90/53 L 99 10/10/16 07:51 10/10/16 09:37 10/10/16 07:51 10/10/16 09:37 10/10/16 07:51 Intake and Output: 10/10/16 10/10/16 06:59 18:59 Intake Total 240 Balance 240 - Medications Medications: Current Medications Acetylcysteine (Acetylcysteine 20%) 4 ml IH BIDRESP [facility] Last Admin: 10/10/16 07:33 Dose: 4 ml Alprazolam (Xanax) 0.25 mg PO BID [facility] PRN Reason: Protocol Stop: 10/15/16 18:31 Last Admin: 10/10/16 09:35 Dose: 0.25 mg Arformoterol Tartrate (Brovana) 15 mcg IH [id number] [facility] Last Admin: 10/10/16 07:33 Dose: 15 mcg Aspirin (Aspirin Chewable) 81 mg PO DAILY [facility] Last Admin: 10/10/16 09:37 Dose: 81 mg Budesonide (Pulmicort Respules) 0.5 mg IH [id number] [facility] Last Admin: 10/10/16 07:33 Dose: 0.5 mg Escitalopram Oxalate (Lexapro) 10 mg PO DAILY [facility] Last Admin: 10/10/16 09:37 Dose: 10 mg Furosemide (Lasix) 40 mg PO DAILY [facility] Last Admin: 10/10/16 09:37 Dose: Not Given Lisinopril (Zestril) 5 mg PO DAILY [facility] Last Admin: 10/10/16 09:38 Dose: Not Given Metoprolol Tartrate (Lopressor) 50 mg PO DAILY [facility] Last Admin: 10/10/16 09:37 Dose: Not Given Ondansetron HCl (Zofran Inj) 4 mg IVP Q4H PRN PRN Reason: Nausea/Vomiting Last Admin: 10/07/16 10:33 Dose: 4 mg Tramadol HCl (Ultram) 50 mg PO TID [facility] Last Admin: 10/10/16 09:36 Dose: 50 mg - Labs Labs: 10/10/16 07:09 10/10/16 07:09 PT 13.4 Seconds (9.9-11.8) H 10/05/16 19:09 INR 1.24 (0.93-1.08) H 10/05/16 19:09 APTT 30.5 Seconds (23.7-30.8) 10/05/16 19:09 - Constitutional Appears: No Acute Distress - Head Exam Head Exam: ATRAUMATIC, NORMOCEPHALIC - GI/Abdominal Exam GI & Abdominal Exam: Soft, Hernia (several larger defects with bowel, temporarily reducible). absent: Distended, Guarding, Tenderness, Rebound - Neurological Exam Neurological Exam: Alert, Oriented x3 - Psychiatric Exam Psychiatric exam: Normal Affect, Normal Mood - Skin Skin Exam: Dry, Intact Assessment and Plan - Assessment and Plan (Free Text) Assessment: 76M w/ partial SBO d/t ventral hernia - Advance to full liquid diet - Monitor tolerance, bowel function - No surgical intervention at this time Will DW Dr. Vik Luther PGY2 <Salvatore Chery - Last Filed: 01/12/17 23:47> Objective - Vital Signs/Intake and Output Vital Signs (last 24 hours): Temp Pulse Resp BP Pulse Ox 98.3 F 70 18 128/77 99 10/15/16 12:00 10/15/16 12:00 10/15/16 12:00 10/15/16 12:00 10/15/16 06:00 - Labs Labs: 10/13/16 06:30 10/14/16 06:45 PT 14.1 Seconds (9.9-11.8) H 10/10/16 10:31 INR 1.31 (0.93-1.08) H 10/10/16 10:31 APTT 33.0 Seconds (23.7-30.8) H 10/10/16 10:31 Assessment and Plan - Assessment and Plan (Free Text) Plan: Patient was seen and examined by me. I agree with assessment and plan as per resident's note.
[2016-10-10 10:46] LABS: INR 1.31 (0.93-1.08)
--- NOTE | 2016-10-10 11:39 | PN ---
DATE: 10/10/2016 The patient is a 76-year-old, seen and examined, lying in bed, sleepy, but arousable. No nausea, vom iting. No fever, no chills. PHYSICAL EXAMINATION: VITAL SIGNS: He is afebrile, pulse 50, respirations 18, blood pressure 90/53. LUNGS: Bilateral fair airflow. No rhonchi or crackle. HEART: S1, S2 audible. ABDOMEN: Soft. He has multiple ventral hernias. They are reducible. No rebound, no guarding. NEUROLOGIC: He is sleepy, but arousable. EXTREMITIES: Bilateral legs, no edema. LABORATORY EXAMINATION: WBCs 8.7, hemoglobin 8.6, hematocrit 27.9, platelets 344. Chemistry: Sodiu m 135, potassium 4.0, chloride 103, CO2 24, BUN 27, creatinine 1.4. Blood sugar of 76. He had CT scan of the abdomen and pelvis done yesterday, shows cholelithiasis, multiple abdominal wal l hernias, but none of them are incarcerated, focal fluid density within the right upper quadrant ang sing from pancreas, questionable cystic lesion. PLAN: Discussed with Dr. Scott. He does not feel comfortable doing a colonoscopy on this patient . Surgical input noted. We will start him on liquid diet and advance if he tolerates it. No surgic al intervention is recommended at this point. We will start him on physical therapy. We will start him on sequential compression devices for trevor venous thrombosis prophylaxis and request for physical therapy evaluation. Claire Owen MD cc: [id number] TT: 10/10/2016 11:38:26 Confirmation # [id number] Dictation # [id number] en
--- NOTE | 2016-10-10 16:30 | PN ---
DATE: 10/10/2016 REFERRING PHYSICIAN: Dr. Amol David SUBJECTIVE: He is lying in the bed, head at 45 degrees, feels okay, had a bowel movement yesterday. Mild abdominal discomfort. No shortness of breath, no chest pain, no dysuria. No leg pain or leg s welling. OBJECTIVE: GENERAL: No acute distress. VITAL SIGNS: Temperature is 98, heart rate is 58, respiratory rate is 18, blood pressure 90/53, puls e ox 99% on nasal cannula. HEENT: Moist mucous membranes. Crowded airway. NECK: Supple. No JVD. LUNGS: Has decreased breath sounds at the bases. HEART: S1 and S2. ABDOMEN: Has a ventral hernia which is reducible, mild tenderness on palpation. EXTREMITIES: There is no edema. NEUROLOGIC: Awake, alert, follows simple command. MEDICATIONS: He is on Mucomyst 20% mL twice a day, aspirin 81 mg daily, Brovana 15 mcg inhaled twice a day, Lasix mg daily, Lexapro 10 mg daily, metoprolol tartrate 50 mg daily, Pulmicort i nhaled twice a day, Ultram is 50 mg 3 times a day, Xanax 0.25 mg twice a day, 5 mg, and Zofran on a p.r.n. basis. LABORATORY DATA: Shows hemoglobin 8.6, hematocrit 27.9, WBC 8.7, platelet is 344. INR of 1.31, PTT is 33. Sodium 135, potassium 4.0, chloride 103, bicarbonate 24, BUN 27, creatinine 1.4, glucose 76, calcium is 8.4, AST 35, ALT 34, alkaline phosphatase is 82, albumin is 2.8. IMPRESSION AND PLAN: Small bowel partial obstruction with multiple ventral hernias, cardiomyopathy w ith systolic dysfunction and pulmonary hypertension, coronary artery disease, history of coronary erickson nt, small bilateral pleural effusions, diabetes, hypertension, degenerative joint disease, may have a sleep apnea syndrome, pancreatic duct cyst. Pulmonary point of view, doing okay. Will continue bro nchodilator. Keep head elevated at 45 degree. 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 May continue Du lcolax on daily basis. Out of bed to chair. Physical therapy. We will follow with you. Onofre Lieberman MD cc: [phone] TT: 10/10/2016 16:30:25 Confirmation # [id number] Dictation # [id number] ln
--- NOTE | 2016-10-10 20:05 | PN ---
DATE: 10/10/2016 ADDENDUM: SUBJECTIVE: This patient was seen and evaluated earlier. The patient did have multiple bowel moveme nts after the last CAT scan. PHYSICAL EXAMINATION: VITAL SIGNS: Temperature is 97.7, pulse 68, respirations 18, blood pressure is . HEENT: Atraumatic, anicteric. NECK: Supple. HEART: S1, S2 heard. LUNGS: Bilateral normal vesicular breath sounds. ABDOMEN: Distended with multiple ventral hernia present, reduced and also an inguinal hernia. The patient is on full liquid diet. Will slowly advance to pureed diet. Discussed with the patient at length The patient also has a history of cardiomyopathy with systolic dysfunction, pulmonary hypertension an d coronary artery disease. The patient does have ascites. This probably could be related to cardiac . In addition to it, the patient appears to have a large cystic lesion or loculated cyst in the panc reatic head area. Will consider an MRI to further evaluate this. The patient at the present time is reluctant for further workup. Thank you very much for allowing us to participate in the care of the patient. Kary Scott MD cc: [id number] TT: 10/10/2016 20:04:51 Confirmation # [id number] Dictation # [id number] aram
[2016-10-10] MEDS ORDERED: Menthol/Methyl Salicylate Ointment(1 oz) TOP PRN (23:27)
--- NOTE | 2016-10-10 23:39 | CP.PCM.PN ---
Subjective - Date & Time of Evaluation Date of Evaluation: 10/10/16 Time of Evaluation: 23:28 - Subjective Subjective: S:Patient was seen at bedside because he requested for some ointment for left foot. He has oral analgesic on order. Has no other complaints. No sob, no chest pain. Medical record was reviewed. O: Last Vital Signs 3 Temp 97.6 F 10/10/16 16:28 Pulse 58 L 10/10/16 16:28 Resp 18 10/10/16 16:28 BP 103/69 10/10/16 16:28 Pulse Ox 94 L 10/10/16 16:28 Awake , alert , not in distress. Left foot- sole - minimal redness of heel, non tender. A: Left foot pain. P:Carlos Dent Ointment as ordered. Objective - Vital Signs/Intake and Output Vital Signs (last 24 hours): Temp Pulse Resp BP Pulse Ox 97.6 F 58 L 18 103/69 94 L 10/10/16 16:28 10/10/16 16:28 10/10/16 16:28 10/10/16 16:28 10/10/16 16:28 Intake and Output: 10/10/16 10/11/16 18:59 06:59 Intake Total 1200 300 Output Total 200 Balance 1200 100 - Medications Medications: Current Medications Acetylcysteine (Acetylcysteine 20%) 4 ml IH BIDRESP [facility] Last Admin: 10/10/16 20:43 Dose: 4 ml Alprazolam (Xanax) 0.25 mg PO BID [facility] PRN Reason: Protocol Stop: 10/15/16 18:31 Last Admin: 10/10/16 17:38 Dose: 0.25 mg Arformoterol Tartrate (Brovana) 15 mcg IH [id number] [facility] Last Admin: 10/10/16 20:43 Dose: 15 mcg Aspirin (Aspirin Chewable) 81 mg PO DAILY [facility] Last Admin: 10/10/16 09:37 Dose: 81 mg Budesonide (Pulmicort Respules) 0.5 mg IH [id number] [facility] Last Admin: 10/10/16 20:44 Dose: 0.5 mg Escitalopram Oxalate (Lexapro) 10 mg PO DAILY [facility] Last Admin: 10/10/16 09:37 Dose: 10 mg Furosemide (Lasix) 40 mg PO DAILY [facility] Last Admin: 10/10/16 09:37 Dose: Not Given Lisinopril (Zestril) 5 mg PO DAILY [facility] Last Admin: 10/10/16 09:38 Dose: Not Given Metoprolol Tartrate (Lopressor) 50 mg PO DAILY [facility] Last Admin: 10/10/16 09:37 Dose: Not Given Ondansetron HCl (Zofran Inj) 4 mg IVP Q4H PRN PRN Reason: Nausea/Vomiting Last Admin: 10/07/16 10:33 Dose: 4 mg Tramadol HCl (Ultram) 50 mg PO TID [facility] Last Admin: 10/10/16 17:38 Dose: 50 mg - Labs Labs: 10/10/16 07:09 10/10/16 07:09 PT 14.1 Seconds (9.9-11.8) H 10/10/16 10:31 INR 1.31 (0.93-1.08) H 10/10/16 10:31 APTT 33.0 Seconds (23.7-30.8) H 10/10/16 10:31
[2016-10-11] MEDS: Acetylcysteine 20% Inhal Soln (4ml) IH SCH ×2 (08:01→21:50)
[2016-10-11] MEDS: Arformoterol 15 mcg/2 ml Inh Sol IH SCH ×2 (08:01→21:50)
[2016-10-11] MEDS: Budesonide 0.5 mg/2 ml Inhal Susp UD IH SCH ×2 (08:01→21:50)
[2016-10-11 08:31] LABS: ADD MANUAL DIFF? NO
[2016-10-11 08:36] LABS: BASO # 0.03 K/mm3 (0.0-2.0); BASO % 0.4 % (0.0-3.0); EOS # 0.4 (0.0-0.7); GRAN # 5.65 (1.4-6.5); GRAN % 68.7 % (50.0-68.0); HEMATOCRIT 29.3 % (42.0-52.0); LYMPH % 11.9 % (22.0-35.0); MEAN CELL VOLUME 80.9 fL (80.0-105.0); MEAN CORPUSCULAR HEMOGLOBIN 24.9 pg (25.0-35.0); MEAN CORPUSCULAR HGB CONC 30.7 g/dl (31.0-37.0); MEAN PLATELET VOLUME 8.3 fl (7.0-11.0); MONO # 1.2 (0.1-0.6); PLATELET COUNT 368 10^3/uL (120.0-450.0); RED CELL DISTRIBUTION WIDTH 18.3 % (11.5-14.5); WHITE BLOOD COUNT 8.2 10^3/ul (4.5-11.0)
[2016-10-11 08:49] LABS: ALB/GLOB RATIO 0.8 (1.1-1.8); ALKALINE PHOSPHATASE 91 U/L (38-133); ALT/SGPT 32 U/L (7-56); AST/SGOT 22 U/L (15-59); BLOOD UREA NITROGEN 25 mg/dL (7-21); CALCIUM 8.5 mg/dL (8.4-10.5); CARBON DIOXIDE 23 mmol/L (21-33); CHLORIDE 102 mmol/L (98-107); GFR AFRICAN-AMERICAN > 60; GLUCOSE,RANDOM 75 mg/dL (70-110); MAGNESIUM 1.9 mg/dL (1.7-2.2); POTASSIUM 4.4 mmol/L (3.6-5.0); SODIUM 135 mmol/L (132-148); TOTAL PROTEIN 5.7 g/dL (5.8-8.3)
--- NOTE | 2016-10-11 13:31 | PN ---
DATE: 10/11/2016 SUBJECTIVE: The patient is a 76-year-old, seen and examined, lying in bed, seems to be comfortable, not in any distress. No nausea or vomiting. PHYSICAL EXAMINATION: VITAL SIGNS: He is afebrile, pulse 62, respirations 18, blood pressure 117/68. LUNGS: Bilateral fair airflow, no rhonchi or crackle. HEART: S1, S2 audible. ABDOMEN: Soft. He has multiple ventral hernias. They are reducible, nontender. EXTREMITIES: Bilateral legs, no edema. LABORATORY EXAMINATION: WBC is 8.2, hemoglobin 9.0, hematocrit 29.3, platelet of 368. Chemistry: S odium 135, potassium 4.4, chloride 102, CO2 23, BUN 25, creatinine 1.3, blood sugar of 75. ASSESSMENT AND PLAN: 1. Abdominal pain, probably secondary to ventral hernias and adhesions giving pulling sensation. 2. Cystic pancreatic lesion. 3. Cholelithiasis. 5. Cardiomyopathy with systolic dysfunction. 6. Pulmonary hypertension. 7. Coronary artery disease. 8. Bilateral pleural effusions. 9. Degenerative disk disease. PLAN: The patient is requested for magnetic resonance cholangiopancreatography. Once that is done, we will make further recommendations. The patient has been on deep venous thrombosis prophylaxis. Hung peres is on sequential compression devices. Out of bed to chair. His diet has been advanced. We will f ollow up this patient in the a.m. Claire Owen MD cc: [phone] TT: 10/11/2016 13:30:50 Confirmation # [id number] Dictation # [id number] sn
--- NOTE | 2016-10-11 15:05 | MRI ---
PROCEDURE: Magnetic Resonance Cholangiopancreatography HISTORY: Pancreatic mass COMPARISON: CT scan 10/09/2016. TECHNIQUE: Multiplanar, multisequence MR images of the abdomen were obtained, including heavily T2 weighted MRCP images of the biliary system. Rotating maximum intensity projection images of the biliary system were generated. FINDINGS: MRCP: The common bile duct is of a normal caliber. No evidence of choledocholithiasis. No intrahepatic biliary ductal dilatation. LIVER: Unremarkable. GALLBLADDER: Unremarkable. SPLEEN: Unremarkable. PANCREAS: There is a large cystic lesion between the head of the pancreas and the michael hepatis. This cyst measures 6 x 9 cm in size. There are no solid elements. ADRENALS: Unremarkable. KIDNEYS: Unremarkable. AORTA: No aneurysm. ASCITES: There is a small amount of ascites surrounding the liver OTHER FINDINGS: None. IMPRESSION: Large simple cyst located between the pancreatic head and michael hepatis measuring 6 x 9 cm. This is of uncertain clinical significance. small volume of ascites surrounding the liver.
--- NOTE | 2016-10-11 19:11 | PN ---
DATE: 10/11/2016 SUBJECTIVE: This patient was seen and evaluated earlier. The patient is tolerating the liquid diet. PHYSICAL EXAMINATION: VITAL SIGNS: Temperature is 98, pulse of 52, blood pressure 156/92. HEENT: Atraumatic, anicteric. NECK: Supple. HEART: S1, S2 heard. LUNGS: Bilateral normal vesicular breath sounds. ABDOMEN: Multiple ventral hernias are present. The patient had a loose bowel movement before. LABORATORY DATA: MRCP reviewed. Has a large loculated fluid collection between the ____ and the nec k of the gallbladder area. He also has ascites. The MR did not show any stones in the gallbladder. There is a questionable stone on reviewing the CT done initially, but subsequently even ultrasound c ould not identify the gallstones. CBD has been normal. The etiology of the fluid collection is uncl ear. The possibility could be loculated ascites versus it could be a pancreatic pseudocyst also to b e considered. IMPRESSION: This 76-year-old patient has a large ventral hernia, partial small bowel obstruction, to lerating the liquid diet. MRI showed a cystic loculated fluid collection between the ____ and the ne ck of the gallbladder/head of the pancreas. The pancreatic contour appears to be slightly retained. CBD and common bile duct and pancreatic duct appear to be normal. There are no gallstones. The pat ient has been having this large hernia for a long time. The patient was able to manage at home. He is requesting that the food can be advanced, and it is a reasonable thing to advance diet to pureed d iet. If he is tolerating, slowly advance the diet. Surgery has planned no intervention at this pres ent time. Thank you very much for allowing us to participate in the care of the patient. Kary Scott MD cc: [id number] TT: 10/11/2016 19:10:16 Confirmation # [id number] Dictation # [id number] felipe
--- NOTE | 2016-10-11 20:04 | PN ---
DATE: 10/11/2016 REFERRING PHYSICIAN: Dr. Amol David. SUBJECTIVE: The patient is lying in the bed, head at 45 degrees. Nursing staff is at bedside. No b owel movement today. Gets short of breath with exertion, but no cough. No nausea. No leg pain or l eg swelling. OBJECTIVE: GENERAL: In no acute distress. VITAL SIGNS: Temperature is 98, heart rate 52, respiratory rate is 20, blood pressure 156/92, pulse ox 92% on room air. HEENT: Moist mucous membranes with no ulcer or oral thrush noted. NECK: Supple. No JVD. LUNGS: Has a few scattered rhonchi. HEART: S1 and S2. ABDOMEN: Soft. Has multiple ventral hernias, reducible. EXTREMITIES: There is no edema. NEUROLOGIC: Awake, alert, follows simple commands. MEDICATIONS: He is on Mucomyst 20% inhaled twice a day, aspirin 81 mg daily, Bengay to affected area twice a day p.r.n., Brovana 15 mcg inhaled twice a day, Lasix 40 mg daily, Lexapro 10 mg daily, meto prolol tartrate 50 mg b.i.d., Pulmicort inhaled twice a day, Ultram 50 mg 3 times a day, Xanax 0.25 m g for twice a day, lisinopril 5 mg daily, Zofran on a p.r.n. basis. LABORATORY DATA: Shows hemoglobin 9.0, hematocrit 29.3, WBC 8.2, platelet count is 368. Sodium 135, potassium 4.4, chloride 102, bicarbonate is 23, BUN 25, creatinine 1.3, glucose 75, calcium is 8.5, magnesium is 1.9, AST 22, ALT 32, alkaline phosphatase is 91, albumin is 2.6. The patient had an MRC P done today, which shows large simple cysts located, which are in the pancreas head and michael hepati ca measuring cm. This is of uncertain clinical significance. A small volume of ascites surrou nding the liver. IMPRESSION AND PLAN: Small bowel partial obstruction with multiple ventral hernias, cardiomyopathy w ith systolic dysfunction and pulmonary hypertension, coronary artery disease, history of coronary erickson nt, small bilateral pleural effusion, diabetes, hypertension, degenerative joint disease, may have sl eep apnea syndrome, pancreatic cyst. Pulmonary point of view, keep head elevated at 45 degrees, bron chodilator and seizure precaution. Will suggest getting him out of bed to chair and physical therapy . May continue Dulcolax use on a daily basis, suppository. Follow up labs in the morning. Thank you and will follow with you. Onofre Lieberman MD cc: [id number] TT: 10/11/2016 20:03:49 Confirmation # [id number] Dictation # [id number]
[2016-10-12 06:24] LABS: HEMATOCRIT 29.2 % (42.0-52.0); MEAN CELL VOLUME 81.1 fL (80.0-105.0); MEAN CORPUSCULAR HGB CONC 30.8 g/dl (31.0-37.0); MEAN PLATELET VOLUME 8.4 fl (7.0-11.0); RED CELL DISTRIBUTION WIDTH 18.3 % (11.5-14.5); WHITE BLOOD COUNT 8.1 10^3/ul (4.5-11.0)
[2016-10-12 06:49] LABS: CALCIUM 8.4 mg/dL (8.4-10.5)
--- NOTE | 2016-10-12 06:52 | CP.PCM.PN ---
Subjective - Date & Time of Evaluation Date of Evaluation: 10/12/16 Time of Evaluation: 06:51 - Subjective Subjective: Nurse Mariangel calls and tells that BP is 75/46 , HR is 56/min , Temp: is 98.1* RR is 14/min. Patient received no pain meds. Had received last lopressor 50 mg PO yesterday,Zestril 5 mg po was given yesterday , Xanax 0.25 mg PO yesterday PM. Patient was seen at bedside. Has no complaints. Denies chest pain, sob, nausea, vomiting, sweating, palpitation, dizziness. This 76 year old was admitted with abdominal pain/ Has PMH of HTN, cardiomyopathy, ejection fraction of 24 %, stroke, CHF, CAD, COPD, DM II , pulmonary HTN ,depression, gastritis, dyslipidemia, bilateral pleural effusion, osteoarthritis. Objective - Vital Signs/Intake and Output Vital Signs (last 24 hours): Temp Pulse Resp BP Pulse Ox 98 F 52 L 18 156/92 H 92 L 10/11/16 15:51 10/11/16 15:51 10/11/16 15:51 10/11/16 15:51 10/11/16 15:51 Intake and Output: 10/11/16 10/12/16 18:59 06:59 Intake Total 480 240 Output Total 450 250 Balance 30 -10 - Medications Medications: Current Medications Acetylcysteine (Acetylcysteine 20%) 4 ml IH BIDRESP [facility] Last Admin: 10/11/16 21:50 Dose: 4 ml Alprazolam (Xanax) 0.25 mg PO BID [facility] PRN Reason: Protocol Stop: 10/15/16 18:31 Last Admin: 10/11/16 18:51 Dose: 0.25 mg Arformoterol Tartrate (Brovana) 15 mcg IH [id number] [facility] Last Admin: 10/11/16 21:50 Dose: 15 mcg Aspirin (Aspirin Chewable) 81 mg PO DAILY [facility] Last Admin: 10/11/16 10:24 Dose: 81 mg Bisacodyl (Dulcolax) 10 mg RC DAILY [facility] Budesonide (Pulmicort Respules) 0.5 mg IH [id number] [facility] Last Admin: 10/11/16 21:50 Dose: 0.5 mg Camphor/Menthol (Bengay) 1 gm TOP QID PRN PRN Reason: Pain, Mild (1-3) Last Admin: 10/11/16 10:25 Dose: 1 applic Escitalopram Oxalate (Lexapro) 10 mg PO DAILY [facility] Last Admin: 10/11/16 10:29 Dose: 10 mg Furosemide (Lasix) 40 mg PO DAILY [facility] Last Admin: 10/11/16 10:24 Dose: 40 mg Lisinopril (Zestril) 5 mg PO DAILY [facility] Last Admin: 10/11/16 10:27 Dose: 5 mg Metoprolol Tartrate (Lopressor) 50 mg PO DAILY [facility] Last Admin: 10/11/16 10:26 Dose: 50 mg Ondansetron HCl (Zofran Inj) 4 mg IVP Q4H PRN PRN Reason: Nausea/Vomiting Last Admin: 10/07/16 10:33 Dose: 4 mg Tramadol HCl (Ultram) 50 mg PO TID [facility] Last Admin: 10/11/16 18:50 Dose: 50 mg - Labs Labs: 10/12/16 05:00 10/11/16 08:20 PT 14.1 Seconds (9.9-11.8) H 10/10/16 10:31 INR 1.31 (0.93-1.08) H 10/10/16 10:31 APTT 33.0 Seconds (23.7-30.8) H 10/10/16 10:31 - Constitutional Appears: Well, No Acute Distress - Head Exam Head Exam: ATRAUMATIC, NORMAL INSPECTION, NORMOCEPHALIC - Eye Exam Eye Exam: Normal appearance - ENT Exam ENT Exam: Normal External Ear Exam - Neck Exam Neck Exam: Normal Inspection - Respiratory Exam Respiratory Exam: NORMAL BREATHING PATTERN - Cardiovascular Exam Cardiovascular Exam: absent: JVD - GI/Abdominal Exam GI & Abdominal Exam: absent: Distended - Rectal Exam Rectal Exam: Deferred - Extremities Exam Extremities Exam: Normal Inspection - Back Exam Back Exam: NORMAL INSPECTION - Neurological Exam Neurological Exam: Alert, Oriented x3 - Psychiatric Exam Psychiatric exam: Normal Affect, Normal Mood - Skin Skin Exam: Normal Color Assessment and Plan - Assessment and Plan (Free Text) Assessment: A/P:Hypotension. CMP. CHF. COPD. Dyslipidemia. Normal saline bolus 200 CC over 30 minutes- After bolus finished the blood pressure was 105/71. EKG-deepened T waves in V5 , V6 in comparision with the last EKG on chart. Troponin stat. Re evaluation by . Endorsed to .
[2016-10-12] MEDS ORDERED: Sodium Chloride 0.9% 200 ML IV STA (07:02)
[2016-10-12 07:15] LABS: ADD MANUAL DIFF? NO
[2016-10-12 07:18] LABS: BASO # 0.05 K/mm3 (0.0-2.0); BASO % 0.5 % (0.0-3.0); EOS # 0.4 (0.0-0.7); EOS % 4.2 % (1.5-5.0); GRAN # 6.37 (1.4-6.5); GRAN % 66.9 % (50.0-68.0); HEMATOCRIT 29.1 % (42.0-52.0); LYMPH # 1.3 (1.2-3.4); LYMPH % 13.2 % (22.0-35.0); MEAN CELL VOLUME 81.1 fL (80.0-105.0); MEAN CORPUSCULAR HEMOGLOBIN 25.1 pg (25.0-35.0); MEAN CORPUSCULAR HGB CONC 30.9 g/dl (31.0-37.0); MEAN PLATELET VOLUME 8.3 fl (7.0-11.0); MONO # 1.5 (0.1-0.6); MONO % 15.2 % (1.0-6.0); PLATELET COUNT 351 10^3/uL (120.0-450.0); RED CELL DISTRIBUTION WIDTH 18.3 % (11.5-14.5); WHITE BLOOD COUNT 9.5 10^3/ul (4.5-11.0)
[2016-10-12 07:28] LABS: ALB/GLOB RATIO 0.9 (1.1-1.8); BILIRUBIN,TOTAL 1.1 mg/dL (0.2-1.3); CALCIUM 8.4 mg/dL (8.4-10.5); POTASSIUM 4.1 mmol/L (3.6-5.0); TOTAL PROTEIN 6.3 g/dL (5.8-8.3)
[2016-10-12] MEDS: Budesonide 0.5 mg/2 ml Inhal Susp UD IH SCH ×2 (07:28→19:55)
[2016-10-12] MEDS: Acetylcysteine 20% Inhal Soln (4ml) IH SCH ×2 (07:28→19:55)
[2016-10-12] MEDS: Arformoterol 15 mcg/2 ml Inh Sol IH SCH ×2 (07:28→19:55)
[2016-10-12 07:39] LABS: TROPONIN I 0.05 ng/mL
--- NOTE | 2016-10-12 08:17 | CP.PCM.PN ---
<Jose Gusman - Last Filed: 10/12/16 08:18> Subjective - Date & Time of Evaluation Date of Evaluation: 10/11/16 Time of Evaluation: 08:12 - Subjective Subjective: SURGERY PROGRESS NOTE FOR DR. CHERY 76M seen and examined at bedside. Patient had a bowel movement overnight and continues to admit to flatus. Abdominal pain is decreased. Denies nausea. Objective - Vital Signs/Intake and Output Vital Signs (last 24 hours): Temp Pulse Resp BP Pulse Ox 97.2 F L 58 L 18 87/53 L 93 L 10/12/16 08:00 10/12/16 08:00 10/12/16 08:00 10/12/16 08:00 10/12/16 08:00 Intake and Output: 10/12/16 10/12/16 06:59 18:59 Intake Total 240 Output Total 250 Balance -10 - Medications Medications: Current Medications Acetylcysteine (Acetylcysteine 20%) 4 ml IH BIDRESP [facility] Last Admin: 10/12/16 07:28 Dose: 4 ml Alprazolam (Xanax) 0.25 mg PO BID [facility] PRN Reason: Protocol Stop: 10/15/16 18:31 Last Admin: 10/11/16 18:51 Dose: 0.25 mg Arformoterol Tartrate (Brovana) 15 mcg IH [id number] [facility] Last Admin: 10/12/16 07:28 Dose: 15 mcg Aspirin (Aspirin Chewable) 81 mg PO DAILY [facility] Last Admin: 10/11/16 10:24 Dose: 81 mg Bisacodyl (Dulcolax) 10 mg RC DAILY [facility] Budesonide (Pulmicort Respules) 0.5 mg IH [id number] [facility] Last Admin: 10/12/16 07:28 Dose: 0.5 mg Camphor/Menthol (Bengay) 1 gm TOP QID PRN PRN Reason: Pain, Mild (1-3) Last Admin: 10/11/16 10:25 Dose: 1 applic Escitalopram Oxalate (Lexapro) 10 mg PO DAILY [facility] Last Admin: 10/11/16 10:29 Dose: 10 mg Furosemide (Lasix) 40 mg PO DAILY [facility] Last Admin: 10/11/16 10:24 Dose: 40 mg Lisinopril (Zestril) 5 mg PO DAILY [facility] Last Admin: 10/11/16 10:27 Dose: 5 mg Metoprolol Tartrate (Lopressor) 50 mg PO DAILY [facility] Last Admin: 10/11/16 10:26 Dose: 50 mg Ondansetron HCl (Zofran Inj) 4 mg IVP Q4H PRN PRN Reason: Nausea/Vomiting Last Admin: 10/07/16 10:33 Dose: 4 mg Tramadol HCl (Ultram) 50 mg PO TID [facility] Last Admin: 10/11/16 18:50 Dose: 50 mg - Labs Labs: 10/12/16 07:00 10/12/16 07:00 PT 14.1 Seconds (9.9-11.8) H 10/10/16 10:31 INR 1.31 (0.93-1.08) H 10/10/16 10:31 APTT 33.0 Seconds (23.7-30.8) H 10/10/16 10:31 - Constitutional Appears: Non-toxic, No Acute Distress - Head Exam Head Exam: ATRAUMATIC - Respiratory Exam Respiratory Exam: Clear to Ausculation Bilateral, NORMAL BREATHING PATTERN - Cardiovascular Exam Cardiovascular Exam: REGULAR RHYTHM, +S1, +S2 - GI/Abdominal Exam GI & Abdominal Exam: Soft, Tenderness. absent: Distended, Firm, Guarding, Rigid , Rebound Additional comments: multiple ventral hernias noted. - Neurological Exam Neurological Exam: Alert, Awake - Skin Skin Exam: Dry, Intact, Normal Color, Warm Assessment and Plan - Assessment and Plan (Free Text) Assessment: 76M w/ partial SBO d/t ventral hernia - patient advanced to clear liquid diet - Monitor tolerance, bowel function - No surgical intervention at this time Further recs discuss with Dr. Vik Gusman, PGY1 <Salvatore Chery - Last Filed: 01/12/17 23:48> Objective - Vital Signs/Intake and Output Vital Signs (last 24 hours): Temp Pulse Resp BP Pulse Ox 98.3 F 70 18 128/77 99 10/15/16 12:00 10/15/16 12:00 10/15/16 12:00 10/15/16 12:00 10/15/16 06:00 - Labs Labs: 10/13/16 06:30 10/14/16 06:45 PT 14.1 Seconds (9.9-11.8) H 10/10/16 10:31 INR 1.31 (0.93-1.08) H 10/10/16 10:31 APTT 33.0 Seconds (23.7-30.8) H 10/10/16 10:31 Assessment and Plan - Assessment and Plan (Free Text) Plan: Patient was seen and examined by me. I agree with assessment and plan as per resident's note.
--- NOTE | 2016-10-12 08:33 | CP.PCM.PN ---
<ChevyDelmar - Last Filed: 10/12/16 08:12> Subjective - Date & Time of Evaluation Date of Evaluation: 10/12/16 Time of Evaluation: 07:10 - Subjective Subjective: Surgery Progress note. Dr. Chery Pt seen and examined at bedside. As per nursing staff, patient became hypotensive to 90/50 overnight. Patient denies any complaints. No dizziness, no confusion. States that he is able to tolerate his diet and has a good appetite. No N/V/D. No Abd pain. No F/C. Objective - Vital Signs/Intake and Output Vital Signs (last 24 hours): Temp Pulse Resp BP Pulse Ox 97.2 F L 58 L 18 87/53 L 93 L 10/12/16 08:00 10/12/16 08:00 10/12/16 08:00 10/12/16 08:00 10/12/16 08:00 Intake and Output: 10/12/16 10/12/16 06:59 18:59 Intake Total 240 Output Total 250 Balance -10 - Medications Medications: Current Medications Acetylcysteine (Acetylcysteine 20%) 4 ml IH BIDRESP [facility] Last Admin: 10/12/16 07:28 Dose: 4 ml Alprazolam (Xanax) 0.25 mg PO BID [facility] PRN Reason: Protocol Stop: 10/15/16 18:31 Last Admin: 10/11/16 18:51 Dose: 0.25 mg Arformoterol Tartrate (Brovana) 15 mcg IH [id number] [facility] Last Admin: 10/12/16 07:28 Dose: 15 mcg Aspirin (Aspirin Chewable) 81 mg PO DAILY [facility] Last Admin: 10/11/16 10:24 Dose: 81 mg Bisacodyl (Dulcolax) 10 mg RC DAILY [facility] Budesonide (Pulmicort Respules) 0.5 mg IH [id number] [facility] Last Admin: 10/12/16 07:28 Dose: 0.5 mg Camphor/Menthol (Bengay) 1 gm TOP QID PRN PRN Reason: Pain, Mild (1-3) Last Admin: 10/11/16 10:25 Dose: 1 applic Escitalopram Oxalate (Lexapro) 10 mg PO DAILY [facility] Last Admin: 10/11/16 10:29 Dose: 10 mg Furosemide (Lasix) 40 mg PO DAILY [facility] Last Admin: 10/11/16 10:24 Dose: 40 mg Lisinopril (Zestril) 5 mg PO DAILY [facility] Last Admin: 10/11/16 10:27 Dose: 5 mg Metoprolol Tartrate (Lopressor) 50 mg PO DAILY [facility] Last Admin: 10/11/16 10:26 Dose: 50 mg Ondansetron HCl (Zofran Inj) 4 mg IVP Q4H PRN PRN Reason: Nausea/Vomiting Last Admin: 10/07/16 10:33 Dose: 4 mg Tramadol HCl (Ultram) 50 mg PO TID [facility] Last Admin: 10/11/16 18:50 Dose: 50 mg - Labs Labs: 10/12/16 07:00 10/12/16 07:00 PT 14.1 Seconds (9.9-11.8) H 10/10/16 10:31 INR 1.31 (0.93-1.08) H 10/10/16 10:31 APTT 33.0 Seconds (23.7-30.8) H 10/10/16 10:31 - Constitutional Appears: Well, No Acute Distress - Head Exam Head Exam: ATRAUMATIC, NORMAL INSPECTION, NORMOCEPHALIC - Eye Exam Eye Exam: EOMI, Normal appearance. absent: Scleral icterus Pupil Exam: PERRL - ENT Exam ENT Exam: Mucous Membranes Moist - Neck Exam Neck Exam: Full ROM - Respiratory Exam Respiratory Exam: NORMAL BREATHING PATTERN. absent: Wheezes - GI/Abdominal Exam GI & Abdominal Exam: Soft. absent: Distended, Firm, Guarding, Rigid, Tenderness Additional comments: Large ventral hernia, reducible. no tenderness to palpation - Extremities Exam Extremities Exam: Normal Inspection - Neurological Exam Neurological Exam: Alert, Awake, Oriented x3 - Psychiatric Exam Psychiatric exam: Normal Affect, Normal Mood - Skin Skin Exam: Dry, Intact, Normal Color, Warm Assessment and Plan - Assessment and Plan (Free Text) Assessment: 76yo M with partial SBO secondary to large ventral hernia - Continue to monitor bowel fxn - Diet advanced to Soft, Heart Healthy. Patient tolerating - No plans for any acute surgical intervention Discuss case with Dr. Vik Reece PGY1 surgery pager: [phone] <Salvatore Chery - Last Filed: 01/12/17 23:49> Objective - Vital Signs/Intake and Output Vital Signs (last 24 hours): Temp Pulse Resp BP Pulse Ox 98.3 F 70 18 128/77 99 10/15/16 12:00 10/15/16 12:00 10/15/16 12:00 10/15/16 12:00 10/15/16 06:00 - Labs Labs: 10/13/16 06:30 10/14/16 06:45 PT 14.1 Seconds (9.9-11.8) H 10/10/16 10:31 INR 1.31 (0.93-1.08) H 10/10/16 10:31 APTT 33.0 Seconds (23.7-30.8) H 10/10/16 10:31 Assessment and Plan - Assessment and Plan (Free Text) Plan: Patient was seen and examined by me. I agree with assessment and plan as per resident's note.
[2016-10-12] MEDS ORDERED: Sodium Chloride 0.9% 500 ML IV STA (09:41)
[2016-10-12] MEDS ORDERED: Sodium Chloride 0.9% 250 ML IV STA (09:49)
--- NOTE | 2016-10-12 12:01 | CARD ---
APPROVED REPORT EKG Measurement Heart [id number] CT [id number] [id number] <Conclusion> Sinus rhythm with 1st degree AV block Possible Inferior infarct, age undetermined ST & T wave abnormality, consider lateral ischemia Abnormal ECG
[2016-10-12] MEDS: Sodium Chloride 0.9% 1,000 ML IV SCH (12:41)
--- NOTE | 2016-10-12 13:12 | PN ---
DATE: 10/12/2016 SUBJECTIVE: The patient is a 76-year-old, seen and examined. He seems to be doing well, eating fair . Denies any abdominal pain, no nausea or vomiting. The patient was found to be hypertensive. He w as evaluated by house doctor this morning and was found to be hypertensive and showed some EKG change s, although patient is asymptomatic, has been started on IV fluid. PHYSICAL EXAMINATION: GENERAL: He is awake and alert, able to communicate. VITAL SIGNS: He is afebrile, pulse 54, respirations 18, blood pressure 94/54. LUNGS: Bilateral fair airflow, no rhonchi or crackle. HEART: S1, S2 audible. ABDOMEN: Soft and nontender, no rebound, no guarding. NEUROLOGIC: He has multiple ventral hernias, they are all reducible. No evidence of incarceration. LABORATORY: WBC is 9.5, hemoglobin 9, hematocrit 29, platelet of 351. Chemistry: Sodium 136, potas sium 4.1, chloride 104, CO2 of 25, BUN 28, creatinine 1.5, blood sugar of 77. EKG done this morning shows sinus rhythm, first degree AV block, possible inferior infarct, age undetermined. 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 ASSESSMENT: 1. Hypotension, probably because of poor oral intake. His BUN and creatinine has bumped up also, so probably is prerenal azotemia. 2. Ventral hernia, reducible. 3. History of depression. 4. Deconditioning and difficulty walking. 5. Abnormal EKG, AL probably old. PLAN: We will start patient on IV fluid and push for p.o. fluid. He is going to be transferred to a regular telemetry to be monitored and will be evaluated by rubber stamp maker in a.m. We will order for CB C and CMP in a.m. Claire Owen MD cc: [id number] TT: 10/12/2016 13:12:49 Confirmation # [id number] Dictation # [id number] adalgisa
--- NOTE | 2016-10-12 20:41 | PN ---
DATE: 10/12/2016 REFERRING PHYSICIAN: Dr. Amol David. SUBJECTIVELY: The patient is lying in the bed, sleepy, arousable. Had a bowel movement. No headach e, no rhinitis, no nausea, no vomiting. Decreased abdominal discomfort. No leg swelling. OBJECTIVELY: No acute distress. Temp is 98, heart rate is 81, respiratory rate is 20, blood pressure 100/69, pulse ox 93% on room air . HENT: Moist mucous membrane. No ulcer or oral thrush noted. NECK: Supple. No JVD. LUNGS: Has decreased breath sounds at bases. HEART: S1, S2. ABDOMEN: Has a ventral hernia. Abdomen is soft to touch. EXTREMITIES: There is no edema. NEUROLOGICAL: Sleepy, arousable. Follows simple command. MEDICATIONS: He is on Mucomyst 20% inhaled twice a day, aspirin 81 mg daily, Carlos-Dent 1 g q.i.d. p.r. n. affected area, Brovana 15 mcg q. 12 hours, Dulcolax 10 mg rectally daily p.r.n., Lasix 40 mg daily , Lexapro is 10 mg daily, metoprolol tartrate 50 mg daily, Pulmicort inhaled twice a day, IV fluid no rmal saline 50 mL per hour, Ultram 50 mg 3 times a day, Xanax 0.25 mg twice a day, Zestril 5 mg daily , Zofran on a p.r.n. basis. LABORATORY DATA: Shows hemoglobin 9.0, hematocrit 29.1, WBC 9.5, platelet is 351. Sodium 136, potas sium 4.1, chloride 104, bicarbonate 25, BUN 28, creatinine 1.5, calcium is 8.4. AST 27, ALT 33, alk phos is 92, albumin is 2.9. IMPRESSION AND PLAN: Small bowel partial obstruction which is improved, ventral hernia, cardiomyopat hy with systolic dysfunction, pulmonary hypertension, coronary artery disease, coronary stent, some b ilateral pleural effusions, diabetes, hypertension, degenerative joint disease, may have a sleep apne a syndrome, pancreatic cyst. Pulmonary point of view, doing well. Can continue bronchodilator. Keep head 45 degrees. Aspiration precaution. May decrease Lasix to 20 mg daily. 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 Thank you, and will follow with you. Onofre Lieberman MD cc: [id number] TT: 10/12/2016 20:40:23 Confirmation # [id number] Dictation # [id number] jn
[2016-10-13 07:24] LABS: ADD MANUAL DIFF? NO
[2016-10-13] MEDS: Budesonide 0.5 mg/2 ml Inhal Susp UD IH SCH ×2 (07:24→19:36)
[2016-10-13] MEDS: Acetylcysteine 20% Inhal Soln (4ml) IH SCH ×2 (07:24→19:35)
[2016-10-13] MEDS: Arformoterol 15 mcg/2 ml Inh Sol IH SCH ×2 (07:24→19:36)
[2016-10-13 07:26] LABS: BASO # 0.02 K/mm3 (0.0-2.0); BASO % 0.2 % (0.0-3.0); EOS # 0.3 (0.0-0.7); EOS % 3.9 % (1.5-5.0); GRAN # 6.09 (1.4-6.5); GRAN % 73.4 % (50.0-68.0); HEMATOCRIT 27.5 % (42.0-52.0); MEAN CELL VOLUME 80.9 fL (80.0-105.0); MEAN CORPUSCULAR HEMOGLOBIN 24.4 pg (25.0-35.0); MEAN CORPUSCULAR HGB CONC 30.2 g/dl (31.0-37.0); MEAN PLATELET VOLUME 8.3 fl (7.0-11.0); MONO # 0.9 (0.1-0.6); MONO % 10.5 % (1.0-6.0); PLATELET COUNT 331 10^3/uL (120.0-450.0); RED CELL DISTRIBUTION WIDTH 18.3 % (11.5-14.5); WHITE BLOOD COUNT 8.3 10^3/ul (4.5-11.0)
[2016-10-13 07:48] LABS: ALB/GLOB RATIO 0.8 (1.1-1.8); ALKALINE PHOSPHATASE 91 U/L (38-133); ALT/SGPT 32 U/L (7-56); AST/SGOT 34 U/L (15-59); BILIRUBIN,TOTAL 0.9 mg/dL (0.2-1.3); BLOOD UREA NITROGEN 24 mg/dL (7-21); CALCIUM 8.3 mg/dL (8.4-10.5); CARBON DIOXIDE 25 mmol/L (21-33); CHLORIDE 104 mmol/L (98-107); GFR AFRICAN-AMERICAN > 60; GLUCOSE,RANDOM 77 mg/dL (70-110); POTASSIUM 3.8 mmol/L (3.6-5.0); SODIUM 137 mmol/L (132-148); TOTAL PROTEIN 6.1 g/dL (5.8-8.3)
[2016-10-13 07:49] LABS: TROPONIN I 0.04 ng/mL
[2016-10-13] MEDS: Sodium Chloride 0.9% 1,000 ML IV SCH (08:06)
--- NOTE | 2016-10-13 08:21 | PN ---
DATE: 10/12/2016 SUBJECTIVE: This patient was seen and evaluated earlier today. The patient is now transferred to __ ___ to telemetry in view of the hypotensive event. PHYSICAL EXAMINATION: GENERAL: The patient is comfortable now. Tolerating the soft diet. VITAL SIGNS: Temperature is 98.5, pulse is 58, blood pressure 99/48 HEENT: Atraumatic, anicteric. NECK: Supple. LUNGS: Bilateral few scattered rhonchi. Bilateral air entry present. HEART: S1, S2 heard. ABDOMEN: Soft. Multiple ventral hernias present. Less prominent. NEUROLOGIC: Alert, oriented. Moves all the extremities. LABORATORY DATA: Hemoglobin 9.9, hematocrit 29, platelets , WBC is 9.5, potassium 4.2, 77 . IMPRESSION: This is a 76-year-old patient with a large ventral hernia with possible obstruction. Toribio s ____ hypotension and was transferred to the telemetry. The patient's p.o. intake remains poor. Th e patient also has improved. The diet has been advanced to soft diet. The patient mentioned that th is hernia has hurt for a long time, but he was able to tolerate the diet until this episode. 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 The etiology is unclear. At the moment, that appears to be stable thin wall. At thi s time, will plan to clinically monitor it. Thank you very much for allowing me to participate in the care of this patient. Kary Scott MD cc: [id number] TT: 10/13/2016 01:42:20 Confirmation # [id number] Dictation # [id number] mn
--- NOTE | 2016-10-13 09:12 | CP.PCM.PN ---
<ChevyDelmar - Last Filed: 10/13/16 09:07> Subjective - Date & Time of Evaluation Date of Evaluation: 10/13/16 Time of Evaluation: 06:50 - Subjective Subjective: Surgery Progress note. Dr. Chery Pt seen and evaluated at bedside. No acute events overnight. Patient states that he is having flatus. Denies having a BM in two days. Tolerating diet. Denies N/V/D. No Abd pain. No CP/SOB. No F/C. No new complaints. Objective - Vital Signs/Intake and Output Vital Signs (last 24 hours): Temp Pulse Resp BP Pulse Ox 98.1 F 66 18 94/55 L 97 10/13/16 06:00 10/13/16 06:00 10/13/16 06:00 10/13/16 06:00 10/13/16 06:00 Intake and Output: 10/13/16 10/13/16 06:59 18:59 Intake Total 1320 Output Total 950 Balance 370 - Medications Medications: Current Medications Acetylcysteine (Acetylcysteine 20%) 4 ml IH BIDRESP [facility] Last Admin: 10/13/16 07:24 Dose: 4 ml Alprazolam (Xanax) 0.25 mg PO BID [facility] PRN Reason: Protocol Stop: 10/15/16 18:31 Last Admin: 10/12/16 18:22 Dose: 0.25 mg Arformoterol Tartrate (Brovana) 15 mcg IH [id number] [facility] Last Admin: 10/13/16 07:24 Dose: 15 mcg Aspirin (Aspirin Chewable) 81 mg PO DAILY [facility] Last Admin: 10/12/16 12:07 Dose: 81 mg Bisacodyl (Dulcolax) 10 mg RC DAILY [facility] Last Admin: 10/12/16 12:39 Dose: Not Given Budesonide (Pulmicort Respules) 0.5 mg IH [id number] [facility] Last Admin: 10/13/16 07:24 Dose: 0.5 mg Camphor/Menthol (Bengay) 1 gm TOP QID PRN PRN Reason: Pain, Mild (1-3) Last Admin: 10/11/16 10:25 Dose: 1 applic Escitalopram Oxalate (Lexapro) 10 mg PO DAILY [facility] Last Admin: 10/12/16 12:07 Dose: 10 mg Furosemide (Lasix) 20 mg PO DAILY [facility] Sodium Chloride (Sodium Chloride 0.9%) 1,000 mls @ 50 mls/hr IV .Q20H [facility] Last Admin: 10/13/16 08:06 Dose: 50 mls/hr Lisinopril (Zestril) 5 mg PO DAILY [facility] Last Admin: 10/12/16 09:44 Dose: Not Given Metoprolol Tartrate (Lopressor) 50 mg PO DAILY [facility] Last Admin: 10/12/16 09:45 Dose: Not Given Ondansetron HCl (Zofran Inj) 4 mg IVP Q4H PRN PRN Reason: Nausea/Vomiting Last Admin: 10/07/16 10:33 Dose: 4 mg Tramadol HCl (Ultram) 50 mg PO TID [facility] Last Admin: 10/12/16 18:25 Dose: Not Given - Labs Labs: 10/13/16 06:30 10/13/16 06:30 PT 14.1 Seconds (9.9-11.8) H 10/10/16 10:31 INR 1.31 (0.93-1.08) H 10/10/16 10:31 APTT 33.0 Seconds (23.7-30.8) H 10/10/16 10:31 - Constitutional Appears: Well, No Acute Distress - Head Exam Head Exam: ATRAUMATIC, NORMAL INSPECTION, NORMOCEPHALIC - Eye Exam Eye Exam: EOMI, Normal appearance. absent: Scleral icterus - ENT Exam ENT Exam: Mucous Membranes Moist - Respiratory Exam Respiratory Exam: NORMAL BREATHING PATTERN - Cardiovascular Exam Cardiovascular Exam: RRR. absent: JVD - GI/Abdominal Exam GI & Abdominal Exam: Soft. absent: Guarding, Rigid, Tenderness Additional comments: Large midline ventral hernia. No tenderness to palpation. - Neurological Exam Neurological Exam: Alert, Awake - Skin Skin Exam: Dry, Intact, Normal Color, Warm Assessment and Plan - Assessment and Plan (Free Text) Assessment: 76yo M with partial SBO secondary to large ventral hernia - No Plans for any acute surgical intervention - Patient tolerating soft heart healthy diet - GI following - continue to monitor for bowel fxn Discussed case with Dr. Vik Reece PGY1 surgery pager: [phone] <Moszczynski,Salvatore - Last Filed: 01/12/17 23:51> Objective - Vital Signs/Intake and Output Vital Signs (last 24 hours): Temp Pulse Resp BP Pulse Ox 98.3 F 70 18 128/77 99 10/15/16 12:00 10/15/16 12:00 10/15/16 12:00 10/15/16 12:00 10/15/16 06:00 - Labs Labs: 10/13/16 06:30 10/14/16 06:45 PT 14.1 Seconds (9.9-11.8) H 10/10/16 10:31 INR 1.31 (0.93-1.08) H 10/10/16 10:31 APTT 33.0 Seconds (23.7-30.8) H 10/10/16 10:31 Assessment and Plan - Assessment and Plan (Free Text) Plan: Patient was seen and examined by me. I agree with assessment and plan as per resident's note.
--- NOTE | 2016-10-13 11:50 | PN ---
DATE: 10/13/2016 SUBJECTIVE: The patient is seen lying in bed on telemetry. He was transferred there yesterday after an episode of hypotension. After IV fluid administration, his blood pressure is improved. He denie s any abdominal discomfort. He was admitted earlier in the month with a partial small bowel obstruct ion and remains hospitalized. He denies any chest pain. His oral intake has been diminished. CURRENT MEDICATIONS: Include Mucomyst, aspirin, Brovana, Lasix 20 mg daily, Lexapro 10 mg daily, met oprolol 50 mg daily, Pulmicort inhaler, Ultram, Xanax, Zestril 5 mg daily and Zofran. OBJECTIVE: GENERAL: He is an elderly man who is comfortable at the present time. VITAL SIGNS: His blood pressure is 112/70 with a pulse of 66 and sinus, respirations are 14. He is afebrile. HEENT: No JVD. CHEST: A few scattered rhonchi heard. HEART: PMI displaced laterally. Systolic murmur is present at lower left sternal border. ABDOMEN: Distended. Bowel sounds are present. EXTREMITIES: No edema. DIAGNOSTIC DATA: Potassium 3.8. Troponin is 0.04. BUN and creatinine are 24 and 1.2. Hemoglobin a nd hematocrit are 8.3 and 27.5 with a white count of 8.3, platelet count 331,000. IMPRESSION: 1. Recent hypotension likely due to volume depletion. 2. Partial small bowel obstruction. 3. Moderate anemia. 4. Severely reduced left ventricular systolic function, status post prior anteroapical myocardial in farction. 5. Severe tricuspid regurgitation. RECOMMENDATIONS: At this time, an additional 24 hours of IV fluid appears reasonable. His diuretics will be held for today. If he has any recurrent hypotensive episodes, further evaluation will be pl anned. Increased oral intake was encouraged. We will continue to follow along and make further fiona mmendations as appropriate. Mike Herrera MD cc: [id number] TT: 10/13/2016 11:50:32 Confirmation # [id number] Dictation # [id number] felipe
--- NOTE | 2016-10-13 12:31 | PN ---
DATE: 10/13/2016 SUBJECTIVE: The patient is a 76-year-old, seen and examined, lying in bed, much more awake and alert , communicative, comfortable. PHYSICAL EXAMINATION: VITAL SIGNS: He is afebrile, pulse 77, respirations 18, blood pressure 101/63. LUNGS: Bilateral fair airflow, no rhonchi or crackle. HEART: S1, S2 audible. ABDOMEN: Soft, nontender, no rebound, no guarding. He has multiple ventral hernias, but they are no t incarcerated. EXTREMITIES: Bilateral legs, no edema. LABORATORY: WBC 8.3, hemoglobin 8.3, hematocrit 27.5, platelet of 331. Chemistry: Sodium 137, pota ssium 3.8, chloride 104, CO2 25, BUN 24, creatinine 1.2, blood sugar 117. ASSESSMENT: 1. Abdominal pain, etiology unclear. He has ventral hernias, but they are not incarcerated. 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 2. Partial small-bowel obstruction, but resolved. 3. Chronic anemia. 4. Left ventricular dysfunction, history of anteroseptal myocardial infarction in the past. 5. Tricuspid regurgitation. 6. Episode of hypotension, but patient responded well to IV fluids. PLAN: He is doing well. He does not want to have more workup done. He was offered that he will be sent to subacute rehabilitation, but patient states he does not want to go to rehab. He has people a round him at home, he would rather go home. The patient will be followed by Dr. David in a.m. Claire Owen MD cc: [id number] TT: 10/13/2016 12:31:16 Confirmation # [id number] Dictation # [id number] adalgisa
--- NOTE | 2016-10-13 15:15 | PN ---
DATE: 10/13/2016 REFERRING PHYSICIAN: Dr. Amol David. SUBJECTIVE: He is lying in the bed, head at 45 degrees. Overnight events noted. He became hyperten sive on IV fluid. Presently feels today. Mild cough. No shortness of breath. No nausea, no abdomi nal pain. No leg pain or leg swelling. OBJECTIVE: GENERAL: In no acute distress. VITAL SIGNS: Temperature is 98, heart rate is 77, respiratory rate is 20, blood pressure 101/63, pul se ox 97% on nasal cannula. HEENT: Moist mucous membrane. Crowded airway. NECK: Supple. No JVD. LUNGS: Have decreased breath sounds at the bases. HEART: S1, S2. ABDOMEN: Has a ventral hernia. Soft, nontender. EXTREMITIES: Not much edema. NEUROLOGIC: Awake, alert, follows simple commands. MEDICATIONS: He is on Mucomyst 20% inhaled twice a day, aspirin 81 mg daily, BenGay to affected area q.i.d., Brovana 15 mcg inhaled twice a day, Dulcolax p.r.n. basis, Lasix 20 mg daily, Lexapro 10 mg daily, metoprolol tartrate 50 mg daily, Pulmicort inhaled twice a day, IV fluid normal saline 50 mL p er hour, Ultram 50 mg 3 times a day, Xanax 0.25 mg twice a day, Zestril 5 mg daily, Zofran on a p.r.n . basis. LABORATORY DATA: Shows hemoglobin is 8.3, hematocrit 27.5, WBC 8.3, platelet count is 331. Sodium 1 37, potassium 3.8, chloride 104, bicarbonate 25, BUN 24, creatinine 1.2, glucose 117, calcium 8.3. A ST 34, ALT 32, alkaline phosphatase is 91, albumin 2.7. IMPRESSION AND PLAN: Cardiomyopathy with pleural effusion, pulmonary hypertension, coronary artery d isease, history of coronary stent, bilateral pleural effusion, diabetes, hypertension, degenerative j oint disease, may have a sleep apnea syndrome, pancreatic cyst ____ with partial small bowel obstruct ion which is improved. Became hypotensive last night, intravenous fluid started, Lasix was decreased to 20 mg daily. Will continue supportive care, bronchodilator. Keep head at 45 degrees. Aspiratio n precaution. Follow up electrolytes. Out of bed to chair if possible. Fall precautions. Follow u p labs in the morning. Thank you, and will follow with you. Onofre Lieberman MD cc: [id number] TT: 10/13/2016 15:14:19 Confirmation # [id number] Dictation # [id number] mn
--- NOTE | 2016-10-13 23:55 | PN ---
DATE: 10/13/2016 SUBJECTIVE: This patient was seen and evaluated earlier. The patient is tolerating the diet, but it is a small amount. PHYSICAL EXAMINATION: VITAL SIGNS: Temperature is 99, blood pressure is 98.63, pulse 68, respirations 18. HEENT: Atraumatic, anicteric. NECK: Supple. HEART: S1, S2 heard. LUNGS: Bilateral air entry present. ABDOMEN: Soft. There is no tenderness. There are multiple ventral hernias present. Reducible. LABORATORY DATA: Hemoglobin 8.3, WBC is 8.3, BUN is 24, creatinine 1.2. IMPRESSION: A 76-year-old patient admitted with large multiple ventral hernias, partial small-bowel obstruction. The patient transferred to the telemetry monitoring from med/surg in view of his blood pressure being low. At the moment, he remains hemodynamically stable, tolerating the diet, but calor ie intake is poor. There is a cystic lesion noticed in the right upper quadrant area extending from the pancreas to the michael. This appears to be present present even before. It appears to be a t that time was a part of the ascites reported. This is not classical appearance of the pancreatic c ystic lesion. No obvious pancreatic mass lesion noticed. Duct appears normal. I did review the pre vious CT scan and my real concern is not a pseudocyst, this does not appear to be to the pancre as, pseudocyst likely a possibility; however, the sonogram did not elicit. The CBD was normal. PD w as also normal and is amorphic. A reasonable thing for this patient is not to do any intervention of the cystic lesion at the present time. We will also review with Dr. Lan Shaffer in the a.m. . But the approach is to follow with conservative management rather than doing an intervention. The v entral hernias appear to be chronic, but the patient was able to manage it with no significant proble ms in the past, but the ascites is a concern. The patient does have history of coronary artery disea se, pulmonary hypertension, also has bilateral pleural effusion. This could be related to gastritis, could be related cardiac. We will continue to closely follow up her care. Thank you very much for allowing me to participate in the care of the patient. Kary Scott MD cc: [id number] TT: 10/13/2016 23:55:32 Confirmation # [id number] Dictation # [id number] mn
[2016-10-14] MEDS: Sodium Chloride 0.9% 1,000 ML IV SCH (04:30)
[2016-10-14 06:27] VITALS: O2SAT 99
[2016-10-14] MEDS: Budesonide 0.5 mg/2 ml Inhal Susp UD IH SCH ×2 (07:43→19:25)
[2016-10-14] MEDS: Arformoterol 15 mcg/2 ml Inh Sol IH SCH ×2 (07:43→19:25)
[2016-10-14] MEDS: Acetylcysteine 20% Inhal Soln (4ml) IH SCH ×2 (07:43→19:26)
[2016-10-14 07:52] LABS: ALB/GLOB RATIO 0.8 (1.1-1.8); ALKALINE PHOSPHATASE 100 U/L (38-133); ALT/SGPT 25 U/L (7-56); AST/SGOT 40 U/L (15-59); BLOOD UREA NITROGEN 21 mg/dL (7-21); CALCIUM 8.5 mg/dL (8.4-10.5); CARBON DIOXIDE 24 mmol/L (21-33); CHLORIDE 105 mmol/L (98-107); GFR AFRICAN-AMERICAN > 60; GLUCOSE,RANDOM 76 mg/dL (70-110); POTASSIUM 3.9 mmol/L (3.6-5.0); SODIUM 138 mmol/L (132-148); TOTAL PROTEIN 6.5 g/dL (5.8-8.3)
--- NOTE | 2016-10-14 08:54 | DS ---
This is a 76-year-old male who had come into the hospital and had a small bowel obstruction. The pat symone had a prolonged hospital course, in which he was having vague abdominal pain. He has multiple h ernias in the abdomen and is a high risk for surgery. He had a full evaluation by surgery and by GI. He had a pancreatic cystic lesion that was seen on a CAT scan, but most likely the patient will nee d conservative management. He is anxious to get home and does not wish to go to subacute rehab. PHYSICAL EXAMINATION: VITAL SIGNS: Temperature is 98.5, pulse of 65, blood pressure is 113/76, respirations 18. GENERAL: The patient comfortable, in no acute distress. HEENT: Anicteric sclerae. Moist mucosa. NECK: No JVD or adenopathy. CARDIAC: S1/S2. No murmurs. No rubs. Regular. RESPIRATORY: Clear to auscultation bilaterally. No wheezes, rales, or rhonchi. Good air entry. ABDOMEN: Bowel sounds are positive, soft, nontender, and nondistended. EXTREMITIES: No edema. Has 1+ pulses. ASSESSMENT: 1. Small bowel obstruction, resolved. 2. Ascites. 3. Bilateral pleural effusion. 4. Ventral hernia. 5. Cholelithiasis. 6. Coronary artery disease. 7. Diabetes type 2. 8. Pulmonary hypertension. 9. Dyslipidemia. 10. Pancreatic cyst. 11. Osteoarthritis. 12. Depression. 13. Chronic obstructive pulmonary disease. 14. Tricuspid regurgitation. PLAN: The patient is currently comfortable. He is on Brovana. He is going to continue with aspirin . He is on Lexapro for his anxiety. The patient is on metoprolol. He has been getting IV fluids. I will discontinue his IV fluids at this point. He is on a heart healthy diet and is tolerating. CONDITION: Stable. ACTIVITY: Increase as tolerated. Amol aDvid MD cc: [id number] TT: 10/14/2016 08:54:22 en
--- NOTE | 2016-10-14 13:51 | CP.PCM.PN ---
<AlbinoMike - Last Filed: 10/14/16 13:48> Subjective - Date & Time of Evaluation Date of Evaluation: 10/14/16 Time of Evaluation: 13:48 - Subjective Subjective: Patient evaluated at bedside. Tolerating heart healthy diet. Denies n/v/d, abdominal pain, fever or chills. + BM today. Patient to discharged today to f/u with his primary as well as with GI for further evaluation of pancreatic cyst. Objective - Vital Signs/Intake and Output Vital Signs (last 24 hours): Temp Pulse Resp BP Pulse Ox 98.7 F 58 L 14 111/72 99 10/14/16 11:59 10/14/16 11:59 10/14/16 11:59 10/14/16 11:59 10/14/16 06:00 Intake and Output: 10/14/16 10/14/16 06:59 18:59 Intake Total 600 Output Total 0 Balance 600 - Medications Medications: Current Medications Acetylcysteine (Acetylcysteine 20%) 4 ml IH BIDRESP [facility] Last Admin: 10/14/16 07:43 Dose: 4 ml Alprazolam (Xanax) 0.25 mg PO BID [facility] PRN Reason: Protocol Stop: 10/15/16 18:31 Last Admin: 10/14/16 10:03 Dose: 0.25 mg Arformoterol Tartrate (Brovana) 15 mcg IH [id number] [facility] Last Admin: 10/14/16 07:43 Dose: 15 mcg Aspirin (Aspirin Chewable) 81 mg PO DAILY [facility] Last Admin: 10/14/16 10:01 Dose: 81 mg Bisacodyl (Dulcolax) 10 mg RC DAILY [facility] Last Admin: 10/14/16 10:04 Dose: Not Given Budesonide (Pulmicort Respules) 0.5 mg IH [id number] [facility] Last Admin: 10/14/16 07:43 Dose: 0.5 mg Camphor/Menthol (Bengay) 1 gm TOP QID PRN PRN Reason: Pain, Mild (1-3) Last Admin: 10/11/16 10:25 Dose: 1 applic Escitalopram Oxalate (Lexapro) 10 mg PO DAILY [facility] Last Admin: 10/14/16 10:03 Dose: 10 mg Furosemide (Lasix) 20 mg PO DAILY [facility] Lisinopril (Zestril) 5 mg PO DAILY [facility] Last Admin: 10/14/16 10:03 Dose: 5 mg Metoprolol Tartrate (Lopressor) 50 mg PO DAILY [facility] Last Admin: 10/14/16 10:03 Dose: 50 mg Ondansetron HCl (Zofran Inj) 4 mg IVP Q4H PRN PRN Reason: Nausea/Vomiting Last Admin: 10/07/16 10:33 Dose: 4 mg Tramadol HCl (Ultram) 50 mg PO TID [facility] Last Admin: 10/14/16 10:01 Dose: 50 mg - Labs Labs: 10/13/16 06:30 10/14/16 06:45 PT 14.1 Seconds (9.9-11.8) H 10/10/16 10:31 INR 1.31 (0.93-1.08) H 10/10/16 10:31 APTT 33.0 Seconds (23.7-30.8) H 10/10/16 10:31 - Constitutional Appears: Non-toxic, No Acute Distress - Head Exam Head Exam: ATRAUMATIC, NORMOCEPHALIC - Eye Exam Eye Exam: EOMI, PERRL - ENT Exam ENT Exam: Mucous Membranes Moist - Neck Exam Neck Exam: Full ROM, Normal Inspection - Respiratory Exam Respiratory Exam: Clear to Ausculation Bilateral. absent: Rales, Rhonchi, Wheezes - Cardiovascular Exam Cardiovascular Exam: REGULAR RHYTHM, +S1, +S2 - GI/Abdominal Exam GI & Abdominal Exam: Soft, Normal Bowel Sounds. absent: Tenderness Additional comments: multiple large ventral hernias. no evidence of incarceration or obstruction. - Extremities Exam Extremities Exam: absent: Calf Tenderness, Pedal Edema - Neurological Exam Neurological Exam: Alert, Awake, Oriented x3 - Psychiatric Exam Psychiatric exam: Normal Affect, Normal Mood - Skin Skin Exam: Normal Color, Warm Assessment and Plan - Assessment and Plan (Free Text) Assessment: 76 y/o male with partial SBO now resolved. Hospital course complicated by incidental findings of pancreatic cyst as well as ascities. Pancreatic cyst measures 6x9cm however it is non-obstructive and the patient is asymptomatic. GI is following and recommends conservative management with further monitoring as an outpatient. Ascites is likely 2/2 systolic heart failure. Hepatitis panel is negative. - No surgical intervention at this time for large ventral hernias. - SBO is resolved - patient is cleared for discharge from surgical point of view. recommend continued f/u with primary and GI. <Salvatore Chery - Last Filed: 01/12/17 23:52> Objective - Vital Signs/Intake and Output Vital Signs (last 24 hours): Temp Pulse Resp BP Pulse Ox 98.3 F 70 18 128/77 99 10/15/16 12:00 10/15/16 12:00 10/15/16 12:00 10/15/16 12:00 10/15/16 06:00 - Labs Labs: 10/13/16 06:30 10/14/16 06:45 PT 14.1 Seconds (9.9-11.8) H 10/10/16 10:31 INR 1.31 (0.93-1.08) H 10/10/16 10:31 APTT 33.0 Seconds (23.7-30.8) H 10/10/16 10:31 Assessment and Plan - Assessment and Plan (Free Text) Plan: Patient was seen and examined by me. I agree with assessment and plan as per resident's note.
--- NOTE | 2016-10-15 00:08 | PN ---
DATE: 10/14/2016 REFERRING PHYSICIAN: Dr. Amol David. SUBJECTIVE: He is lying in the bed, head at 45 degree. No headache, no rhinitis, breathing is isela r. No nausea, no vomiting. Abdominal pain is better, had a bowel movement. No leg pain or leg swel ling. OBJECTIVE: GENERAL: No acute distress. VITAL SIGNS: Temperature is 98, heart rate is 58, respiratory rate is 20, blood pressure 119/75, pul se ox 99% on nasal cannula. HEENT: Moist mucous membranes. Crowded airway. Mallampati score is 4. NECK: Supple. No JVD. LUNGS: Has decreased breath sounds at the bases, few rhonchi. HEART: S1 and S2. ABDOMEN: Soft, nontender, not distended. Has a ventral hernia, which is reducible. EXTREMITIES: There is not much edema. NEUROLOGIC: Awake, alert, follows simple commands. MEDICATIONS: He is on Mucomyst 20% inhaled twice a day, aspirin 81 mg daily, BenGay 1 gram effective area daily, Brovana 15 mcg inhaled twice a day, Dulcolax 10 mg rectally daily, Lasix 20 mg daily, Le xapro 10 mg daily, metoprolol tartrate 50 mg daily, Pulmicort inhaled twice a day, Ultram 50 mg 3 darby es a day, Xanax 0.25 mg titrated up to 5 mg daily, Zofran on a p.r.n. basis. LABORATORY DATA: Reviewed and noted. Sodium 138, potassium 3.9, chloride 105, bicarbonate 24, BUN 2 1, creatinine 1.1, glucose 76, calcium is 8.5, AST 40, ALT 25, alkaline phosphatase is 100, albumin i s 2.9. IMPRESSION AND PLAN: Cardiomyopathy, pleural effusion, pulmonary hypertension, coronary artery disea se, history of coronary stent, bilateral pleural effusion, diabetes, hypertension, degenerative joint disease, sleep apnea syndrome. Pulmonary point of view, doing okay. Keep head elevated at 45 degrees. Sleep apnea precaution. Felton id sedation. P.R.N. diuretics. Continue laxatives, more bed to chair. Physical therapy. Fall prec autions. Onofre Lieberman MD cc: [id number] TT: 10/15/2016 00:07:25 Confirmation # [id number] Dictation # [id number] mn
[2016-10-15] MEDS: Acetylcysteine 20% Inhal Soln (4ml) IH SCH (07:50)
[2016-10-15] MEDS: Arformoterol 15 mcg/2 ml Inh Sol IH SCH (07:50)
[2016-10-15] MEDS: Budesonide 0.5 mg/2 ml Inhal Susp UD IH SCH (07:50)
--- NOTE | 2016-10-15 08:11 | PN ---
DATE: 10/15/2016 The patient has no complaints of any chest pain, no shortness of breath, no headaches. He is going t o be discharged home. Temperature is 97.8, pulse of 63, blood pressure is 122/83, respirations 18. PHYSICAL EXAMINATION: GENERAL: The patient comfortable, in no acute distress. HEENT: Anicteric sclerae. Moist mucosa. NECK: No JVD or adenopathy. CARDIAC: S1/S2. No murmurs. No rubs. Regular. RESPIRATORY: Clear to auscultation bilaterally. No wheezes, rales, or rhonchi. Good air entry. ABDOMEN: Bowel sounds are positive, soft, nontender, and nondistended. EXTREMITIES: No edema. Has 1+ pulses. Please see the discharge summary that was done yesterday. LABS: White count of 8.3, hemoglobin 8.3, creatinine is 1.1. ASSESSMENT: 1. Small bowel obstruction, resolved. 2. Ascites. 3. Bilateral pleural effusion. 4. Ventral hernia. 5. Cholelithiasis. 6. Coronary artery disease. 7. Diabetes type 2. 8. Pulmonary hypertension. 9. Dyslipidemia. 10. Pancreatic cyst. 11. Osteoarthritis. 12. Depression. 13. Chronic obstructive pulmonary disease. 14. Tricuspid regurgitation. PLAN: The patient is currently comfortable. He is going to be on aspirin. The patient is on Lasix daily. He is on constipation medications with Dulcolax. He is on metoprolol. The patient is on tra madol for pain. He is on Zestril for hypertension. He is going to be discharged home today. He was discharged home yesterday, but the patient's daughter had a difficult time picking the patient up. CONDITION: Stable. ACTIVITY: Increase as tolerated. Amol David MD cc: [id number] TT: 10/15/2016 08:10:08 Confirmation # [id number] Dictation # [id number] nikhil
--- NOTE | 2016-10-15 08:51 | CP.PCM.PN ---
<Mike Posada - Last Filed: 10/15/16 08:48> Subjective - Date & Time of Evaluation Date of Evaluation: 10/15/16 Time of Evaluation: 08:48 - Subjective Subjective: Patient seen and evaluated at bedside. He remains afebrile. BM x1 today. Abdominal pain is resolved. Tolerating heart healthy diet. Patient will be discharged home today. Objective - Vital Signs/Intake and Output Vital Signs (last 24 hours): Temp Pulse Resp BP Pulse Ox 98.2 F 69 20 139/78 99 10/15/16 06:00 10/15/16 06:00 10/15/16 06:00 10/15/16 06:00 10/15/16 06:00 - Medications Medications: Current Medications Acetylcysteine (Acetylcysteine 20%) 4 ml IH BIDRESP [facility] Last Admin: 10/15/16 07:50 Dose: 4 ml Alprazolam (Xanax) 0.25 mg PO BID [facility] PRN Reason: Protocol Stop: 10/15/16 18:31 Last Admin: 10/14/16 17:19 Dose: 0.25 mg Arformoterol Tartrate (Brovana) 15 mcg IH [id number] [facility] Last Admin: 10/15/16 07:50 Dose: 15 mcg Aspirin (Aspirin Chewable) 81 mg PO DAILY [facility] Last Admin: 10/14/16 10:01 Dose: 81 mg Bisacodyl (Dulcolax) 10 mg RC DAILY [facility] Last Admin: 10/14/16 10:04 Dose: Not Given Budesonide (Pulmicort Respules) 0.5 mg IH [id number] [facility] Last Admin: 10/15/16 07:50 Dose: 0.5 mg Camphor/Menthol (Bengay) 1 gm TOP QID PRN PRN Reason: Pain, Mild (1-3) Last Admin: 10/11/16 10:25 Dose: 1 applic Escitalopram Oxalate (Lexapro) 10 mg PO DAILY [facility] Last Admin: 10/14/16 10:03 Dose: 10 mg Furosemide (Lasix) 20 mg PO DAILY [facility] Lisinopril (Zestril) 5 mg PO DAILY [facility] Last Admin: 10/14/16 10:03 Dose: 5 mg Metoprolol Tartrate (Lopressor) 50 mg PO DAILY [facility] Last Admin: 10/14/16 10:03 Dose: 50 mg Ondansetron HCl (Zofran Inj) 4 mg IVP Q4H PRN PRN Reason: Nausea/Vomiting Last Admin: 10/07/16 10:33 Dose: 4 mg Tramadol HCl (Ultram) 50 mg PO TID [facility] Last Admin: 10/14/16 17:08 Dose: Not Given - Labs Labs: 10/13/16 06:30 10/14/16 06:45 PT 14.1 Seconds (9.9-11.8) H 10/10/16 10:31 INR 1.31 (0.93-1.08) H 10/10/16 10:31 APTT 33.0 Seconds (23.7-30.8) H 10/10/16 10:31 - Constitutional Appears: Non-toxic, No Acute Distress - Head Exam Head Exam: ATRAUMATIC, NORMOCEPHALIC - Eye Exam Eye Exam: EOMI, PERRL - ENT Exam ENT Exam: Mucous Membranes Moist - Respiratory Exam Respiratory Exam: Clear to Ausculation Bilateral. absent: Rales, Rhonchi, Wheezes - Cardiovascular Exam Cardiovascular Exam: REGULAR RHYTHM, +S1, +S2 - GI/Abdominal Exam GI & Abdominal Exam: Soft. absent: Tenderness Additional comments: multiple large ventral hernias. No signs of incarceration or strangulation. - Extremities Exam Extremities Exam: absent: Calf Tenderness, Pedal Edema - Back Exam Back Exam: NORMAL INSPECTION - Neurological Exam Neurological Exam: Alert, Awake, Oriented x3 - Psychiatric Exam Psychiatric exam: Normal Affect, Normal Mood - Skin Skin Exam: Dry, Intact, Normal Color, Warm Assessment and Plan - Assessment and Plan (Free Text) Assessment: 76 y/o male with partial SBO now resolved. Hospital course complicated by incidental findings of pancreatic cyst as well as ascities. Pancreatic cyst measures 6x9cm however it is non-obstructive and the patient is asymptomatic. GI is following and recommends conservative management with further monitoring as an outpatient. Ascites is likely 2/2 systolic heart failure. Hepatitis panel is negative. - No surgical intervention at this time for large ventral hernias. - SBO is resolved - patient is cleared for discharge from surgical point of view. recommend continued f/u with primary and GI. <Natalio Wolf - Last Filed: 11/18/16 06:29> Objective - Vital Signs/Intake and Output Vital Signs (last 24 hours): Temp Pulse Resp BP Pulse Ox 98.3 F 70 18 128/77 99 10/15/16 12:00 10/15/16 12:00 10/15/16 12:00 10/15/16 12:00 10/15/16 06:00 - Labs Labs: 10/13/16 06:30 10/14/16 06:45 PT 14.1 Seconds (9.9-11.8) H 10/10/16 10:31 INR 1.31 (0.93-1.08) H 10/10/16 10:31 APTT 33.0 Seconds (23.7-30.8) H 10/10/16 10:31 Assessment and Plan - Assessment and Plan (Free Text) Assessment: Concur with this assessment-Plan Pt may be discharged This evaluation done under my direct supervision Aydin Wolf MD FACS
--- NOTE | 2016-10-15 10:55 | PN ---
DATE: 10/15/2016 SUBJECTIVE: This patient was seen and evaluated earlier. Discussed with Dr. David. The patient is tolerating the diet. PHYSICAL EXAMINATION: VITAL SIGNS: He is afebrile, temperature is 98.2, blood pressure is 139/78, pulse is 69, respirations 20. HEENT: Atraumatic, anicteric. NECK: Supple. HEART: S1, S2 heard. LUNGS: Bilateral air entry present. ABDOMEN: Soft. There are multiple abdominal hernias present. Soft, reducible. EXTREMITIES: No edema. LABORATORY DATA: Hemoglobin 8.3, hematocrit 27.5, platelets 331. Chemistries: BUN is 24, creatinine 1.2. IMPRESSION: This 76-year-old patient was admitted with partial small bowel obstruction this is improved. The patient did have ascites, cirrhosis of the liver. The 2 CAT scans and also the MRIs were reviewed with that radiologist. The CT findings do not suggest a possible pancreatic cyst. It appears to be more of loculated ascitic fluid, probably in the lesser sac. The patient did have ascites and it is confined more to the lesser sac area that gives an appearance like a pancreatic cyst rather than there is a true cyst. There is no defined wall noticed. The reasonable thing for this patient is to have followup imaging studies. The patient does have a cirrhotic appearing liver. History of pulmonary hypertension. I have discussed with Dr. David regarding the patient. Would not contemplate a colonoscopy; it is very difficult to do for this patient in view of the multiple bowel loops in the hernia sacs. EGD also has a slight increased risk in this patient. Since the patient is tolerating the diet with multiple comorbidities, the present status is to optimize the patient's condition and workup to be considered if needed electively. Thank you very much for allowing us to participate in the care of the patient. Kary Scott MD cc: [id number] TT: 10/15/2016 09:02:21 Confirmation # [id number] Dictation # [id number] mn 10/15/2016 09:52:24 MTDD
[2016-10-15 12:36] VITALS: BP 128/77; PULSE 70; RESP 18; TEMP 98.3
--- NOTE | 2016-10-15 17:25 | PN ---
DATE: 10/15/2016 REFERRING PHYSICIAN: Dr. Amol David. SUBJECTIVE: The patient is lying in the bed. Feels better. Refused to do therapy today. No headac he, no rhinitis. Gets short of breath with exertion. No nausea, no vomiting, no diarrhea, no abdomi nal pain today. Had a bowel movement yesterday. No leg pain. OBJECTIVE: GENERAL: No acute distress. VITAL SIGNS: Temperature is 98, heart rate is 70, respiratory rate is 20, blood pressure 128/77. HEENT: Moist mucous membrane. No ulcer or oral thrush noted. NECK: Supple. No JVD. LUNGS: Have decreased breath sounds at the bases. HEART: S1, S2. ABDOMEN: Soft, nontender. No organomegaly. Has a ventral hernia. EXTREMITIES: There is no edema. NEUROLOGIC: Awake, alert, follows simple command. MEDICATIONS: He is on Mucomyst 20% inhaled twice a day, aspirin 81 mg daily, BenGay to affected area q.i.d., Brovana 15 mcg inhaled twice a day, Dulcolax 10 mg rectally daily, Lasix 20 mg daily, Lexapr o 10 mg daily, metoprolol tartrate 50 mg daily, Pulmicort inhaled twice a day, Ultram Cozaar 50 mg 3 times a day, Xanax 0.25 mg twice a day, Zestril 5 mg daily, Zofran on a p.r.n. basis. LABORATORY DATA: Reviewed. No new lab is available since yesterday. IMPRESSION AND PLAN: Cardiomyopathy, pleural effusion, pulmonary hypertension, coronary artery disea se, history of coronary stent, pleural ____, diabetes, hypertension, degenerative joint disease, may have sleep apnea syndrome, status post small bowel partial obstruction, activities of daily living dy sfunction. Will encourage to get out of bed to chair. Fall precaution. Stool softener, afterload r educer, diuretics. Thank you, and will follow with you. Onofre Lieberman MD cc: [id number] TT: 10/15/2016 17:24:59 Confirmation # [id number] Dictation # [id number] mn
--- NOTE | 2016-10-15 20:58 | PN ---
DATE: 10/15/2016 SUBJECTIVE: This patient was seen and evaluated earlier. The patient is comfortable, tolerating the diet. No vomiting. Had bowel movement, regular. PHYSICAL EXAMINATION: VITAL SIGNS: Stable, afebrile, blood pressure is 128/77, respirations 20. HEENT: Atraumatic, anicteric. NECK: Supple. HEART: S1, S2 heard. LUNGS: Bilateral air entry present, slightly reduced at the base. ABDOMEN: Soft. Multiple ventral hernias present. EXTREMITIES: No edema, no cyanosis. NEUROLOGIC: Alert. LABORATORY DATA: No recent labs today. IMPRESSION: 1. A 76-year-old patient admitted with partial small-bowel obstruction with multiple ventral hernias . Now tolerating the diet. He is improved. 2. Cirrhosis of the liver with ascites. Followup CT shows ascites more loculated in the lesser sac mimicking probably like a pancreatic cyst, but this needs to be followed up to confirm. 3. Other comorbidities include coronary artery disease, cardiomyopathy, pleural effusion, and pulmon ralph hypertension, diabetes mellitus disease, degenerative joint disease, obstructive sleep apnea. I had a detailed discussion with Dr. David. The plan is for conservative management. Plan to be discharged today. Thank you very much for allowing us to participate in the care of the patient. Kary Scott MD cc: [id number] TT: 10/15/2016 20:57:45 Confirmation # [id number] Dictation # [id number] felipe
== END 2016-10-15 17:58 | disposition home health service (06) | DRG 394 ==
LOC: ED 18:42 → EROBSV 19:02 → OBSVTOIN 22:37 → ERH 22:37 → 5RNO 23:40 → 2RNO 10-12 14:31
PROVIDERS: ADMIT Internal Medicine Nephrology; ATTEND Internal Medicine Nephrology
DX: K43.6 Other and unspecified ventral hernia with obstruction, without gangrene (principal); I42.9 Cardiomyopathy, unspecified; K86.2 Cyst of pancreas; I50.20 Unspecified systolic (congestive) heart failure; I11.0 Hypertensive heart disease with heart failure; R18.8 Other ascites; I27.2 Other secondary pulmonary hypertension; F03.90 Unspecified dementia, unspecified severity, without behavioral disturbance, psychotic disturbance, mood disturbance, and anxiety; K40.30 Unilateral inguinal hernia, with obstruction, without gangrene, not specified as recurrent; I08.1 Rheumatic disorders of both mitral and tricuspid valves; J44.9 Chronic obstructive pulmonary disease, unspecified; E11.9 Type 2 diabetes mellitus without complications; K80.20 Calculus of gallbladder without cholecystitis without obstruction; I25.10 Atherosclerotic heart disease of native coronary artery without angina pectoris; E78.5 Hyperlipidemia, unspecified; F32.9 Major depressive disorder, single episode, unspecified; G47.33 Obstructive sleep apnea (adult) (pediatric); F41.9 Anxiety disorder, unspecified; Z96.641 Presence of right artificial hip joint; K29.70 Gastritis, unspecified, without bleeding; K74.60 Unspecified cirrhosis of liver; D50.9 Iron deficiency anemia, unspecified; M79.672 Pain in left foot; M51.9 Unspecified thoracic, thoracolumbar and lumbosacral intervertebral disc disorder; E86.9 Volume depletion, unspecified; K59.00 Constipation, unspecified; R26.2 Difficulty in walking, not elsewhere classified; M15.9 Polyosteoarthritis, unspecified; Z79.82 Long term (current) use of aspirin; Z86.73 Personal history of transient ischemic attack (TIA), and cerebral infarction without residual deficits; Z88.0 Allergy status to penicillin; Z88.2 Allergy status to sulfonamides; Z95.5 Presence of coronary angioplasty implant and graft; I25.2 Old myocardial infarction